=== PATIENT | female | born 2005 | race Caucasian/White ===

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

== ENCOUNTER 2024-09-06 05:24 | Emergency (ER) | payer OTHER, SELFPAY ==
[2024-09-06 05:24] VITALS: BP 153/93; PULSE 98; RESP 16; TEMP 36.9; O2SAT 100; BMI 34.2
--- NOTE | 2024-09-06 05:53 | EX.ED.DYSGE1 ---
HPI History of Present Illness Chief Complaint: Abd Pain Narrative Narrative: Patient is a 19-year-old female with past medical history of recent diagnosis of diabetes on metformin who presents to the emergency department the chief complaint of menstrual cramps. Patient states that in the middle the night she woke up and noted that she started menstrual cycle was having significant pain she tried ibuprofen around midnight and then she tried Midol around 3 AM without any relief therefore she came here for further evaluation management. She states that she is unsure if this is related to her diabetes or not. Patient denies any possibility of [facility] Medical History Diabetes Home Medications ?Medication ?Instructions ?Recorded ?Last Taken ?Type metformin 500 mg tablet,extended 2,000 mg PO DAILY 09/06/24 Unknown History release 24 hr ondansetron 4 mg disintegrating 4 mg PO Q6H PRN nausea and 09/06/24 Unknown Rx tablet vomiting #20 tabs Allergy/AdvReac Type Severity Reaction Status Date / Time No Known Allergies Allergy Verified 09/06/24 05:25 Social History Smoking Status: Never smoker ROS ROS ED ROS Narrative Constitutional: Denies fevers, chills, headaches Abdomen: Complains of abdominal pain as noted above denies nausea vomit diarrhea : Denies any painful urination, hematuria, polyuria Neurological: Denies any numbness, wheeze, tingling Musculoskeletal: Denies back pain Skin: Denies rashes or lesions EXAM Physical Exam Narrative Exam Narrative: General: Patient lying in bed rest comfortably did not appear to be acute distress Head: Atraumatic, normocephalic Eyes: PERRL bilaterally, EOMI bilaterally, no conjunctival injection noted Neck: Soft, supple, trachea midline Cardiovascular: Regular rate and rhythm Abdomen: Soft, nondistended, mild tenderness to palpation over the suprapubic region in the right lower and left lower quadrants no rebound or guarding on exam Extremities: +5/5 strength noted in the bilateral upper and lower extremities Neurological: Patient follow commands that she was at [facility] the year is 2024 Skin: Warm, dry, intact no rashes or lesions noted Const Vital Signs: 09/06/24 05:24 Temperature 98.4 F Temperature Source Oral Pulse Rate 98 Respiratory Rate 16 Blood Pressure 153/93 H Blood Pressure Mean 113 Pulse Ox 100 Oxygen Delivery Method Room Air MDM MDM MDM Narrative Medical decision making narrative: Patient is a 19-year-old female who presents to the emergency department with a chief complaint of period cramps. On the differential diagnose includes but not limited to menstrual cycle, ruptured cyst, UTI, , ectopic . Once workup is obtained reviewed she will be reevaluated. Patient be given IV fluids and Toradol. On reevaluation the patient she is feeling much improved she would like to go home at this point time. Patient was advised to rotate Tylenol and ibuprofen [id number] for pain control. She was encouraged to use Zofran sent to her pharmacy as needed for nausea. She was encouraged to follow-up with her doctor and return with any other concerns. She is agreeable this plan as well as significant other bedside all question concerns answered she was discharged home in stable condition Lab Data Labs: Laboratory Results - last 24 hr 09/06/24 09/06/24 05:50 05:57 Urine Color Yellow Urine Clarity Clear Urine pH 6.5 Ur Specific [place] 1.010 Urine Protein 15 H Urine Glucose (UA) Normal Urine Ketones Negative Urine Occult Blood 250 H Urine Nitrite Negative Urine Bilirubin Negative Urine Urobilinogen Normal Ur Leukocyte Esterase Negative Urine RBC 0 SEEN Urine WBC 0 SEEN Ur Squamous Epith Cells 0-5 SEEN Urine Bacteria 0 SEEN Urine Mucus 0 SEEN Urine Test Negative POC Glucose 127 H Discharge Plan Triage Chief Complaint: Abd Pain ED Provider: Alfredo Early Dx/Rx/DC Orders Clinical Impression: Menstrual cramp Prescriptions: New ondansetron 4 mg tablet,disintegrating 4 mg PO Q6H PRN (Reason: nausea and vomiting) Qty: 20 0RF No Action metformin 500 mg tablet extended release 24 hr 2,000 mg PO DAILY Primary Care Provider: Jessy Logan NP Referrals: Jessy Logan NP, TECHNICAL MAINTENANCE TECHNICIAN-C [Primary Care Provider] - Activity Restrictions/Additional Instructions: Follow-up with your doctor in the outpatient setting. Return with worsening symptoms or any concerns. Your urine did not show evidence of infection your glucose was normal and your test was negative. Rotate Tylenol and ibuprofen [id number] when you do this you can take something every 3 hours. Max dose Tylenol is 4000 mg in 24 hours max dose of ibuprofen 3200 mg in 24 hours. Print Language: Faroese Disposition Disposition: Home, Self Care
[2024-09-06 05:58] LABS: Bacteria 0 SEEN /hpf (None Seen); Mucous, Urine 0 SEEN /hpf (<or=2+); Red Blood Cells-Urine 0 SEEN /hpf (0-5); White Blood Cells 0 SEEN /hpf (0-5)
[2024-09-06 06:06] LABS: Color, Urine Yellow (Yellow); Glucose, Dipstick Normal (Normal); Ketone-Dipstick Negative (Negative); Leukocyte Esterase-Dipstick Negative /ul (Negative); Nitrite-Dipstick Negative (Negative); Occult Blood-Urine 250 /ul (Negative); Protein-Dipstick 15 mg/dl (Negative); Urine Bilirubin Dipstick Negative (Negative); Urine Clarity Clear (Clear); Urine Urobilinogen Normal (Normal); Urine pH 6.5 (5.0 - 8.0)
[2024-09-06] MEDS: Ketorolac 15 MG/ML Vial IV (06:06)
[2024-09-06] MEDS: 0.9% Normal Saline (1000mL) 1,000 ML 999 ML IV (06:07)
[2024-09-06 06:16] LABS: Bedside Glucose 127 mg/dL (74-106)
[2024-09-06 06:17] LABS: Squamous Epithelial Cells - UA 0-5 SEEN /hpf (5-10)
[2024-09-06 06:18] LABS: Internal QC Validated? YES +Cl - CLEAR BKGD; Pregnancy, Urine Negative Negative
--- OUTSIDE RECORDS SUMMARY | 2024-09-06 06:30 | XMS RPT_ITS | CCD ---
Author Organization [facility] Care Team Providers Care Patient Portal Representative Name Role Phone José Farnsworth Admitting Unavailable José Farnsworth Attending Unavailable Aurelia Ventura Primary Care Unavailable Aurelia Ventura Unavailable Gisel Ruiz Unavailable UnavailSophia DAVIS, RYAN Carrasco Attending Provider Gsiel Ruiz Attending Unavailmonica Ventura, Mrs. Aurelia Duran Primary Care Unavail able Vinny Sanchez Attending Unavailable Audrey, Mrs. Aurelia Duran Primary Care Unavail able TATIANA MACDEO Attending Unavailable BARBARA ÁLVAREZ Primary Care Unavailable REFERRED, SELF Referring Unavailable Unavailable Primary Care Provider Juan ARIAS MD, DR RENNER Attending Unavailmonica e TABITHA HERPETOLOGIST-REGULATORY ASSISTANT, JESSY Bowling Attending Unavai lable TABITHA HERPETOLOGIST-REGULATORY ASSISTANT, JESSY Bowling Primary Care Yuriy Logan TELESALES REPRESENTATIVE, Jessy Bowling Primary Care Provider YUKI SHRESTHA Attending Unavailable JESSY LOGAN Primary Care Unavailable LOGAN HERPETOLOGIST-REGULATORY ASSISTANT, JESSY Bowling Attending Unavai lable LOGAN HERPETOLOGIST-REGULATORY ASSISTANT, JESSY L Primary Care Unavai lable LOGAN HERPETOLOGIST-REGULATORY ASSISTANT, JESSY L Attending Unavai lable LOGAN HERPETOLOGIST-REGULATORY ASSISTANT, JESSY Bowling Primary Care Unavai lable LOGAN HERPETOLOGIST-REGULATORY ASSISTANT, JESSY Bowling Primary Care Unavai lable LOGAN HERPETOLOGIST-REGULATORY ASSISTANT, JESSY Bowling Attending Unavai lable LOGAN HERPETOLOGIST-REGULATORY ASSISTANT, JESSY Bowling Attending Unavai lable LOGAN HERPETOLOGIST-REGULATORY ASSISTANT, JESSY Bowling Primary Care Unavai lable LOGAN HERPETOLOGIST-REGULATORY ASSISTANT, JESSY Bowling Primary Care Unavai lable LOGAN HERPETOLOGIST-REGULATORY ASSISTANT, JESSY L Attending JESSY Hameed Primary Care JESSY Hameed Attending Jessy Reese Primary Care Unavailable Alfredo Early Attending Unavailable Allergies Allergy Classification Reported Allergen(s) Allergy Type Date of Onset Reaction(s) Facility (1 source) Bee/Wasp/Ant venom; Translations: [Bee Stings] Propensity to adverse reactions (disorder) [facility] Repository (1 source) No Known Medication Allergies; Translations: [No Known Medication Allergies] Propensity to adverse reactions to drug (disorder) [facility] Repository (1 source) bee venom; Translations: [BEE VENOM] Propensity to adverse reactions to drug (disorder) 4 [facility] Repository (4 sources) Bee Sting; Translations: [BEE STING] Allergy to substance 4 Anaphylaxis [facility] Medications Current Medications Medication Drug Class(es) Dates Sig (Normalized) Sig (Original) [id number] 0.3 ml EPINEPHrine 1 mg/ml auto-injector (2 sources) alpha-Adrenergic Agonist, beta-Adrenergic Agonist, Catecholamine Start: 04-30-2022 EPINEPHrine (EPIPEN) 0.3 mg/0.3 mL auto-injector Inject 0.3 mg intramuscularly. 04/30/2022 Active ketorolac tromethamine 10 mg oral tablet (1 source) Nonsteroidal Anti-inflammatory Drug, Cyclooxygenase Inhibitor Start: 08-05-2023 End: 08-08-2023 ketorolac 10 mg oral tablet Dose : 10 mg = 1 tab(s), Oral, QID, PRN as needed for pain, not to exceed 40 mg/day and 5 days duration for all dose forms, X 3 day(s), # 12 tab(s), 0 Refill(s), 08/08/23 5:14:00 AM EDT Start Date: 08/05/23 Stop Date: 08/08/23 Status: Ordered nitrofurantoin, macrocrystals 25 mg / nitrofurantoin, monohydrate 75 mg oral capsule (1 source) Nitrofuran Antibacterial Start: 09-14-2021 take 1 capsule by mouth every twelve hours at mealtime Nitrofurantoin Monohyd/M-Cryst Active 1 CAP PO Q12H 14 7 September 14, 2021 12:00am administer with a meal/food; swallow whole; do not open, crush, dissolve , or chew Completed/Discontinued Medications Medication Drug Class(es) Dates Sig (Normalized) Sig (Original) NEGATED: Highlighted row has not occurred!No Current Medications (1 source) No Current Medic ations Problems Active Problems Problem Classification Problem Date Documented Date Episodic/Chronic Abdominal pain (2 sources) Abdominal pain; Translations: [Unspecified abdominal pain] Onset: 08-05-2023 Episodic Diabetes mellitus without complication (2 sources) Type 2 diabetes mellitus without complications; Translations: [Type 2 diabetes mellitus without complications] Onset: 08-06-2024 Chronic Genitourinary symptoms and ill-defined conditions (5 sources) Dysuria; Translations: [Other symptoms and signs involving the genitourinary system] Onset: 03-07-2022 06-01-2024 Episodic Headache; including migraine (2 sources) Headache; Translations: [Headache] 05-02-2021 Episodic Headache; including migraine (4 sources) Headache; including migraine; Translations: [Headache, unspecified] Onset: 05-02-2021 05-02-2021 Comment on above: HIT BACK OF HEAD ON A TABLE FRIDAY, HEADACHE FOR 3 DAYS Other injuries and conditions due to external causes (2 sources) Closed injury of head; Translations: [Head injury, unspecified] 05-02-2021 Episodic Other nutritional; endocrine; and metabolic disorders (1 source) Abnormal weight gain; Translations: [Abnormal weight gain] Onset: 08-06-2024 Episodic Urinary tract infections (1 source) Urinary tract infection, site not specified; Translations: [Urinary tract infection, site not specified] Onset: 03-07-2022 Episodic Past or Other Problems Problem Classification Problem Date Documented Da te Episodic/Chronic Contraceptive and procreative management (2 sources) Social and personal history finding; Translations: [Encounter for procreative management, unspecified] Onset: 06-12-2023 06-12-2023 Episodic E Codes: Struck by; against (1 source) Striking against or struck by other objects, initial encounter; Translations: [Striking against or struck by other objects, init encntr] Onset: 05-02-2021 Episodic Malaise and fatigue (1 source) Other fatigue; Translations: [Other fatigue] Onset: 05-02-2021 Episodic Other injuries and conditions due to external causes (2 sources) Unspecified injury of head, initial encounter; Translations: [Unspecified injury of head, initial encounter] Onset: 05-02-2021 Episodic Other screening for suspected conditions (not mental disorders or infectious disease) (1 source) Abnormal findings on diagnostic imaging of skull and head, not elsewhere classified; Translations: [Abnormal findings on dx imaging of skull and head, NEC] Onset: 05-02-2021 Episodic Results Test Name Value Interpretation Reference Range Facility [id number] 06-28-2024 SUSANA-65 1076.1 units/ml High 0.0-5.0 [facility] Comment on above: Order Comment: +/- 2 8 days from order time Result Comment: Perf ormed At: [facility] [address] [id number] Tyler William MD Ph:[phone] Performed By: #### A DIFF, CBC, [id number], TSH, ANEU, CMP, LIPID, GFR #### [address] [address] #### CPEP #### [address] [address] .Auto Diffon 06-23-2024 Basophil, Absolute 0.0 10 3/mcL Normal 0.0-0.2 [facility] Comment on above: Performed By: #### A DIFF, CBC, 964068, TSH, ANEU, CMP, LIPID, GFR #### [address] [address] #### CPEP #### [address] [address] Basophils/100 WBC (Bld) 0.3 % Normal 0.0-2.5 [facility] Comment on above: Performed By: #### A DIFF, CBC, 549930, TSH, ANEU, CMP, LIPID, GFR #### [address] [address] #### CPEP #### [address] [address] Eosinophil, Absolute 0.1 10 3/mcL Normal 0.0-0.7 [facility] Comment on above: Performed By: #### A DIFF, CBC, 944945, TSH, ANEU, CMP, LIPID, GFR #### [place] [address] #### CPEP #### [address] [address] Eosinophils/100 WBC (Bld) 0.8 % Normal 0.0-7.0 [facility] Comment on above: Performed By: #### A DIFF, CBC, 288924, TSH, ANEU, CMP, LIPID, GFR #### [place] [address] #### CPEP #### [address] [address] Lymphocyte, Absolute 2.4 10 3/mcL Normal 0.9-4.3 [facility] Comment on above: Performed By: #### A DIFF, CBC, 313338, TSH, ANEU, CMP, LIPID, GFR #### [place] [address] #### CPEP #### [address] [address] Lymphocytes/100 WBC (Bld) 33.6 % Normal 20.0-40.0 [facility] Comment on above: Performed By: #### A DIFF, CBC, 464928, TSH, ANEU, CMP, LIPID, GFR #### [place] [address] #### CPEP #### [address] [address] Monocyte, Absolute 0.3 10 3/mcL Normal 0.1-1.4 [facility] Comment on above: Performed By: #### A DIFF, CBC, 900489, TSH, ANEU, CMP, LIPID, GFR #### [place] [address] #### CPEP #### [address] [address] Monocytes/100 WBC (Bld) 4.8 % Normal 2.0-13.0 [facility] Comment on above: Performed By: #### A DIFF, CBC, 209914, TSH, ANEU, CMP, LIPID, GFR #### [address] [address] #### CPEP #### [address] [address] Neutrophils/100 WBC (Bld) 60.5 % Normal 50.0-75.0 [facility] Comment on above: Performed By: #### A DIFF, CBC, 844525, TSH, ANEU, CMP, LIPID, GFR #### [address] [address] #### CPEP #### [address] [address] .GFRon 06-23-2024 GFR/1.73 sq M.predicted among non-blacks MDRD (S/P/Bld) [Vol rate/Area] mL/min/{1.73_m2} Normal [facility] Comment on above: Result Comment: Stages of Chronic Kidney Disease (CKD) Stage Description eGFR(ml/min/1.73 sq.m.) CKD 1 Normal kidney function or >=90 normal kindney function with possible kidney damage (ex. Proteinuria) CKD 2 Kidney damage with mild loss 60-89 of kidney function CKD 3a Mild to moderate loss of kidney 45-59 function CKD 3b Moderate to severe loss of 30-44 of kindey function CKD 4 Severe loss of kidney function 15-29 CKD 5 Kidney failure <15 Note: (go live 2024) the eGFR calculation was updated to the 2020 CKD-EPI creatinine equation without a race factor to calculate the eGFR results. Performed By: #### A DIFF, CBC, 145848, TSH, ANEU, CMP, LIPID, GFR #### [address] [address] #### CPEP #### [address] [address] .NEUABSon 06-23-2024 Neutrophil, Absolute 4.4 10 3/mcL Normal 2.3-8.1 [facility] Comment on above: Performed By: #### A DIFF, CBC, 929177, TSH, ANEU, CMP, LIPID, GFR #### [address] [address] #### CPEP #### [address] [address] CBCon 06-23-2024 Erythrocyte distribution width (RBC) [Ratio] 13.0 % Normal 11.5-15.5 [facility] Comment on above: Performed By: #### A DIFF, CBC, 271770, TSH, ANEU, CMP, LIPID, GFR #### [place] [address] #### CPEP #### [place] [address] Hematocrit (Bld) [Volume fraction] 42.0 % Normal 34.0-46.0 [facility] Comment on above: Performed By: #### A DIFF, CBC, 378935, TSH, ANEU, CMP, LIPID, GFR #### [place] [address] #### CPEP #### [place] [address] Hgb 14.3 G/dL Normal 12.0-16.0 [facility] Comment on above: Performed By: #### A DIFF, CBC, 981013, TSH, ANEU, CMP, LIPID, GFR #### [place] [address] #### CPEP #### [place] [address] MCH (RBC) [Entitic mass] 27.6 pg Normal 27.0-33.0 [facility] Comment on above: Performed By: #### A DIFF, CBC, 362528, TSH, ANEU, CMP, LIPID, GFR #### [place] [address] #### CPEP #### [place] [address] MCHC 34.1 G/dL Normal 32.0-36.0 [facility] Comment on above: Performed By: #### A DIFF, CBC, 298782, TSH, ANEU, CMP, LIPID, GFR #### [place] [address] #### CPEP #### [place] [address] MCV (RBC) [Entitic vol] 81.0 fL Normal 80.0-99.0 [facility] Comment on above: Performed By: #### A DIFF, CBC, 855664, TSH, ANEU, CMP, LIPID, GFR #### [place] [address] #### CPEP #### [place] [address] Platelet 371 10 3/mcL Normal 150-450 [facility] Comment on above: Performed By: #### A DIFF, CBC, 075102, TSH, ANEU, CMP, LIPID, GFR #### [place] [address] #### CPEP #### [place] [address] Platelet mean volume (Bld) [Entitic vol] 8.2 fL Normal 6.6-10.5 [facility] Comment on above: Performed By: #### A DIFF, CBC, 771196, TSH, ANEU, CMP, LIPID, GFR #### [place] [address] #### CPEP #### [place] [address] RBC 5.19 10 6/mcL Normal 4.10-5.30 [facility] Comment on above: Performed By: #### A DIFF, CBC, 565101, TSH, ANEU, CMP, LIPID, GFR #### [place] [address] #### CPEP #### [place] [address] WBC 7.2 10 3/mcL Normal 4.5-10.8 [facility] Comment on above: Performed By: #### A DIFF, CBC, 634003, TSH, ANEU, CMP, LIPID, GFR #### [address] [address] #### CPEP #### [address] [address] CMPon 06-23-2024 Albumin Level 4.4 G/dL Normal 3.5-5.0 [facility] Comment on above: Performed By: #### A DIFF, CBC, 437300, TSH, ANEU, CMP, LIPID, GFR #### [place] [address] #### CPEP #### [place] [address] Albumin/Globulin [Mass ratio] 1.2 {ratio} Normal 1.1-2.5 [facility] Comment on above: Performed By: #### A DIFF, CBC, 553903, TSH, ANEU, CMP, LIPID, GFR #### [place] [address] #### CPEP #### [place] [address] ALP [Catalytic activity/Vol] 126 U/L Normal 40-135 [facility] Comment on above: Performed By: #### A DIFF, CBC, 359021, TSH, ANEU, CMP, LIPID, GFR #### [address] [address] #### CPEP #### [place] [address] ALT [Catalytic activity/Vol] 21 U/L Normal 14-59 [facility] Comment on above: Performed By: #### A DIFF, CBC, 026151, TSH, ANEU, CMP, LIPID, GFR #### [place] [address] #### CPEP #### [place] [id number] AST [Catalytic activity/Vol] 14 U/L Normal 10-40 [facility] Comment on above: Performed By: #### A DIFF, CBC, 455408, TSH, ANEU, CMP, LIPID, GFR #### [address] [address] #### CPEP #### [address] [address] Bili Total 0.3 mg/dL Normal 0.2-1.0 [facility] Comment on above: Result Comment: Use of this assay is not recommended for patients undergoing treatment with eltrombopag due to the potential for falsely elevated results. Performed By: #### A DIFF, CBC, 997170, TSH, ANEU, CMP, LIPID, GFR #### [address] [address] #### CPEP #### [address] [address] BUN/Creatinine Ratio 15 ratio Normal 7-27 [facility] Comment on above: Performed By: #### A DIFF, CBC, 899796, TSH, ANEU, CMP, LIPID, GFR #### [place] [address] #### CPEP #### [address] [address] Calcium [Mass/Vol] 9.6 mg/dL Normal 8.4-10.2 [facility] Comment on above: Performed By: #### A DIFF, CBC, 015653, TSH, ANEU, CMP, LIPID, GFR #### [address] [address] #### CPEP #### [address] [address] Chloride [Moles/Vol] 99 mmol/L Normal 98-107 [facility] Comment on above: Performed By: #### A DIFF, CBC, 309132, TSH, ANEU, CMP, LIPID, GFR #### [address] [address] #### CPEP #### [address] [address] CO2 [Moles/Vol] 29 mmol/L Normal 22-29 [facility] Comment on above: Performed By: #### A DIFF, CBC, 629332, TSH, ANEU, CMP, LIPID, GFR #### [address] [address] #### CPEP #### [address] [address] Creatinine [Mass/Vol] 0.73 mg/dL Normal 0.55-1.02 [facility] Comment on above: Result Comment: Test ing performed on Siemens Dimension EXL analyzer using a modified kinetic Mustapha technique. Performed By: #### A DIFF, CBC, 536908, TSH, ANEU, CMP, LIPID, GFR #### [address] [address] #### CPEP #### [address] [address] Electrolyte Balance 9.0 mEq/L Normal 4.0-15.0 [facility] Comment on above: Performed By: #### A DIFF, CBC, 872981, TSH, ANEU, CMP, LIPID, GFR #### [place] [address] #### CPEP #### [address] [address] Globulin 3.6 G/dL Normal 1.5-3.8 [facility] Comment on above: Performed By: #### A DIFF, CBC, 046931, TSH, ANEU, CMP, LIPID, GFR #### [address] [address] #### CPEP #### [address] [address] Glucose [Mass/Vol] 152 mg/dL High 70-105 [facility] Comment on above: Performed By: #### A DIFF, CBC, 659070, TSH, ANEU, CMP, LIPID, GFR #### [place] [address] #### CPEP #### [address] [address] Potassium [Moles/Vol] 4.0 mmol/L Normal 3.5-5.1 [facility] Comment on above: Performed By: #### A DIFF, CBC, 864558, TSH, ANEU, CMP, LIPID, GFR #### [address] [address] #### CPEP #### [address] [address] Sodium [Moles/Vol] 137 mmol/L Normal 136-145 [facility] Comment on above: Performed By: #### A DIFF, CBC, 133184, TSH, ANEU, CMP, LIPID, GFR #### [place] [address] #### CPEP #### [place] [address] Total Protein 8.0 G/dL Normal 6.4-8.2 [facility] Comment on above: Performed By: #### A DIFF, CBC, 085931, TSH, ANEU, CMP, LIPID, GFR #### [place] [address] #### CPEP #### [place] [address] Urea nitrogen [Mass/Vol] 11 mg/dL Normal 7-18 [facility] Comment on above: Performed By: #### A DIFF, CBC, 687649, TSH, ANEU, CMP, LIPID, GFR #### [address] [address] #### CPEP #### [address] [address] CPEPon 06-23-2024 C-Peptide 2.32 ng/mL Normal 0.81-3.85 [facility] Comment on above: Order Comment: +/- 2 8 days from order time Performed By: #### A DIFF, CBC, 765236, TSH, ANEU, CMP, LIPID, GFR #### [place] [address] #### CPEP #### [address] [address] LIPIDon 06-23-2024 Cholesterol [Mass/Vol] 156 mg/dL Normal 0-200 [facility] Comment on above: Result Comment: Chol esterol Reference Interval: Less than 200 Desirable 200-239 Borderline high risk 240 and above High risk Performed By: #### A DIFF, CBC, 801899, TSH, ANEU, CMP, LIPID, GFR #### [address] [address] #### CPEP #### [address] [address] Cholesterol in HDL [Mass/Vol] 56 mg/dL Normal 40-60 [facility] Comment on above: Performed By: #### A DIFF, CBC, 157744, TSH, ANEU, CMP, LIPID, GFR #### [place] [address] #### CPEP #### [address] [address] Cholesterol in LDL [Mass/Vol] 90 mg/dL Normal 0-130 [facility] Comment on above: Performed By: #### A DIFF, CBC, 711929, TSH, ANEU, CMP, LIPID, GFR #### [place] [address] #### CPEP #### [address] [address] Triglyceride [Mass/Vol] 49 mg/dL Normal 0-150 [facility] Comment on above: Result Comment: Trig lyceride Reference Interval: Less than 150 Normal 150-199 Borderline high risk 200-499 High risk 500 or higher Very high risk Performed By: #### A DIFF, CBC, 059267, TSH, ANEU, CMP, LIPID, GFR #### [place] [address] #### CPEP #### [address] [address] TSHon 06-23-2024 TSH Qn 1.49 m[IU]/L Normal 0.36-3.74 [facility] Comment on above: Performed By: #### A DIFF, CBC, 510633, TSH, ANEU, CMP, LIPID, GFR #### [place] [address] #### CPEP #### [facility] [address] [place] [address] Bacteria Ur Culton Bacteria identified Cx Nom (U) CULTURE, URINE: No growth (<1,000 CFU/ml) Normal [facility] Comment on above: Performed By: #### 6 30-4 #### [facility] CLIA [id number] [address] [place] [address] [place] CNOVon 06-01-2024 CNOV Office Visit (UCWSTR ) KRISS MEDEROS ([id number]) 1 F Date Time Provider Department 06/01/24 4:45 PM APRIL [facility]LEG[facility] During your visit today, we recorded the following information about you: Temperature Pulse Respiration Blood pressure 98.5 degrees 100/minute 16/minute 122/72 Weight 89 kg April Villegas APRN.REGULATORY ASSISTANT 06/01/2024 5:49 PM Signed [facility] Subjective Kriss Mederos is a 18 year old female. HPI Pt is a 18 y/o female who presents with dysuria, increased frequency, pelvic pain and back pain x 5 days. No reports of abnormal color or odor to urine. No reports of fever, body aches or chills. Pt reports that she is taking phentermine and stopped taking over the last few days due to potential side effect of medication. LMP: 3 weeks ago per patient. No reports of vaginal symptoms. Pt has not taken any otc medications at this time. Review of Systems Constitutional: Negative for chills and fever. Respiratory: Negative. Cardiovascular: Negative. Genitourinary: Positive for dysuria and frequency. Negative for difficulty urinating, hematuria and menstrual problem. Musculoskeletal: Positive for back pain. Objective BP 122/72 Pulse 100 Temp 36.9 ?C (98.5 ?F) Resp 16 Wt 89 kg (196 lb 3.4 oz) LMP 05/22/2023 (Exact Date) SpO2 96% BMI 35.89 kg/m? No past medical history on file. No past surgical history on file. ALLERGIES Bee Sting MEDICATIONS EPINEPHrine (EPIPEN) 0.3 mg/0.3 mL auto-injector Inject 0.3 mg intramuscularly. No family history on file. Social History Tobacco Use Smoking status: Never Smokeless tobacco: Never Substance Use Topics Alcohol use: Never Drug use: Never Physical Exam Constitutional: General: She is awake. Cardiovascular: Rate and Rhythm: Normal rate and regular rhythm. Pulmonary: Effort: Pulmonary effort is normal. Breath sounds: Normal breath sounds. Abdominal: Tenderness: There is abdominal tenderness in the suprapubic area. There is no right CVA tenderness or left CVA tenderness. Neurological: Mental Status: She is alert. Assessment and Plan Differential Diagnoses - dysuria is more likely for the following reason(s): suggested by HANDP - pelvic pain is more likely for the following reason(s): suggested by HANDP - pyelonephritis is less likely for the following reason(s): HANDP not suggestive Disposition The patient was discharged. Procedures ASSESSMENT/PLAN: 1. Dysuria - ICD9: 788.1, ICD10: R30.0 (primary diagnosis) acute - Send urine for culture - Patient education for prevention given - BACTERIAL CULTURE, URINE - URINALYSIS, WITH MICROSCOPIC - UA Dip unremarkable for signs of infection - will send urine out for Urinalysis and UAC. - will reach out to patient regarding results and will prescribe antibiotic treatment if warranted based on culture results. 2. Pelvic pain - ICD9: [id number], ICD10: R10.2 - UA Dip unremarkable for signs of infection - will send urine out for Urinalysis and UAC. - UA DIP, URINE (POC) - BACTERIAL CULTURE, URINE - URINALYSIS, WITH MICROSCOPIC - will reach out to patient regarding results and will prescribe antibiotic treatment if warranted based on culture results. Chayo Mantilla TEACHING PROVIDER (Physician/PA/HERPETOLOGIST) NOTE OF PERSONAL INVOLVEMENT IN CARE: I have personally seen and examined the patient and performed the medical decision-making components. I have reviewed the Advanced Practice Registered Nurse (HERPETOLOGIST) Student's documentation and verified the findings in the note as written. Any additions or changes are noted in bold/italics. Signature: April Villegas Date: 06/01/2024 Time: 5:45 PM Chayo Mantilla 06/01/2024 5:10 PM Signed ASSESSMENT/PLAN: 1. Dysuria - ICD9: 788.1, ICD10: R30.0 (primary diagnosis) acute - Send urine for culture - Patient education for prevention given - BACTERIAL CULTURE, URINE - URINALYSIS, WITH MICROSCOPIC - UA Dip unremarkable for signs of infection - will send urine out for Urinalysis and UAC. - will reach out to patient regarding results and will prescribe antibiotic treatment if warranted based on culture results. 2. Pelvic pain - ICD9: [id number], ICD10: R10.2 - UA Dip unremarkable for signs of infection - will send urine out for Urinalysis and UAC. - UA DIP, URINE (POC) - BACTERIAL CULTURE, URINE - URINALYSIS, WITH MICROSCOPIC - will reach out to patient regarding results and will prescribe antibiotic treatment if warranted based on culture results. Allergies As of Date: 06/01/2024 Noted Allergy Reaction BEE STING 06/12/2023 10 - Anaphylaxis Date Reviewed: 06/01/2024 Reviewed by: Batool Collins MA - Fully Assessed Reason for Visit: Pelvic Pain [282] Cmt: low back pain x 5 days Primary Visit Diagnosis:Dysuria [R30.0] Other Visit Diagnosis:Pelvic pain [R10.2] Order (more content not included)... Normal [facility] UA DIP, URINE (POC)on 2024 BILIRUBIN UA (POCT) Negative Negative [facility] CLARITY UA (POCT) Clear [facility] COLOR UA (POCT) Yellow [facility] GLUCOSE UA (POCT) 250 mg/dL Abnormal Negative [facility] Hemoglobin Ql (U) Trace-intact Abnormal Negative [facility] Interpretation and review of laboratory results Abnormal [facility] KETONE UA (POCT) Negative Negative mg/dL [facility] LEUKOCYTES UA (POCT) Negative Negative [facility] NITRITE UA (POCT) Negative Negative [facility] PH UA (POCT) 6 4.5 - 8.0 [facility] Protein Ql (U) Negative Negative mg/dL [facility] SPECIFIC GRAVITY UA (POCT) 1.01 1.005 - 1.030 [facility] UROBILINOGEN UA (POCT) 0.2 Normal E.U./dL [facility] Location:[facility], [address] [place] [address], [place], [place], [id number] [place] [address] POINT OF CARE [facility] Urinalysis complete panel (U )on 06-01-2024 Bacteria LM.HPF (Urine sed) [#/Area] Negative Normal Negative [facility] Comment on above: Order Comment: Speci men Type: URINE SPECIMEN Ordering Facility: [facility] Address: [address] [place] [address] Performed By: #### 2 4356-8 #### [facility] CLIA [id number] [address] [place] [address] [place] Bilirubin Ql (U) Negative Normal Negative [facility] Comment on above: Order Comment: Speci men Type: URINE SPECIMEN Ordering Facility: [facility] Address: [address] [place] [address] Performed By: #### 2 4356-8 #### [facility] CLIA [id number] [address] [place] [address] [place] Clarity (Unsp spec) Clear Normal Clear [facility] Comment on above: Order Comment: Speci men Type: URINE SPECIMEN Ordering Facility: [facility] Address: [address] [place] [address] Performed By: #### 2 4356-8 #### [facility] CLIA [id number] [address] [place] [address] [place] Color (U) Yellow Normal Yellow [facility] Comment on above: Order Comment: Speci men Type: URINE SPECIMEN Ordering Facility: [facility] Address: [address] [place] [address] Performed By: #### 2 4356-8 #### [facility] CLIA [id number] [address] [place] [address] [place] Epithelial cells LM.HPF (Urine sed) [#/Area] None Seen Normal [facility] Comment on above: Order Comment: Speci men Type: URINE SPECIMEN Ordering Facility: [facility] Address: [address] [place] [address] Performed By: #### 2 4356-8 #### [facility] CLIA [id number] [address] [place] [address] [place] Glucose Test strip (U) [Mass/Vol] 1+ Abnormal Negative [facility] Comment on above: Order Comment: Speci men Type: URINE SPECIMEN Ordering Facility: [facility] Address: [address] [place] [address] Performed By: #### 2 4356-8 #### [facility] CLIA [id number] [address] [place] [address] [place] Hemoglobin Ql (U) Negative Normal Negative [facility] Comment on above: Order Comment: Speci men Type: URINE SPECIMEN Ordering Facility: [facility] Address: [address] [place] [address] Performed By: #### 2 4356-8 #### [facility] CLIA [id number] [address] [place] [address] [place] Hyaline casts (Urine sed) [#/Area] 0 /[LPF] Normal 0 /LPF [facility] Comment on above: Order Comment: Speci men Type: URINE SPECIMEN Ordering Facility: [facility] Address: [address] [place] [address] Performed By: #### 2 4356-8 #### [facility] CLIA [id number] [address] [place], [place] [id number] [place] Ketones Ql (U) Negative Normal Negative [facility] Comment on above: Order Comment: Speci men Type: URINE SPECIMEN Ordering Facility: [facility] Address: [address] [place] [address] Performed By: #### 2 4356-8 #### [facility] CLIA [id number] [address] [id number] [address] [place] Leukocyte esterase Test strip Ql (U) Negative Normal Negative [facility] Comment on above: Order Comment: Speci men Type: URINE SPECIMEN Ordering Facility: [facility] Address: [address] [place] [address] Performed By: #### 2 4356-8 #### [facility] CLIA [id number] [address] [place] [address] [place] Nitrite Ql (U) Negative Normal Negative [facility] Comment on above: Order Comment: Speci men Type: URINE SPECIMEN Ordering Facility: [facility] Address: [address] [place] [address] Performed By: #### 2 4356-8 #### [facility] CLIA [id number] [address] [place] [address] [place] pH (U) 6.5 [pH] Normal <8.5 [facility] Comment on above: Order Comment: Speci men Type: URINE SPECIMEN Ordering Facility: [facility] Address: [address] [place] [address] Performed By: #### 2 4356-8 #### [facility] CLIA [id number] [address] [place] [address] [place] Protein (U) [Mass/Vol] Negative Normal Negative [facility] Comment on above: Order Comment: Speci men Type: URINE SPECIMEN Ordering Facility: [facility] Address: [address] [place] [address] Performed By: #### 2 4356-8 #### [facility] CLIA [id number] [address] [place] [address] [place] RBC LM.HPF (Urine sed) [#/Area] 0-2 /HPF Normal 0-2 /HPF [facility] Comment on above: Order Comment: Speci men Type: URINE SPECIMEN Ordering Facility: [facility] Address: [address] [place] [address] Performed By: #### 2 4356-8 #### [facility] CLIA [id number] [address] [place] [address] [place] Specific gravity (U) [Rel density] 1.008 Normal 1.005-1.030 [facility] Comment on above: Order Comment: Speci men Type: URINE SPECIMEN Ordering Facility: [facility] Address: [address] [place] [address] Performed By: #### 2 4356-8 #### [facility] CLIA [id number] [address] [place] [address] [place] Urobilinogen Ql (U) 0.2 EU/dL Normal 0.2-1.0 EU/dL [facility] Comment on above: Order Comment: Speci men Type: URINE SPECIMEN Ordering Facility: [facility] Address: [address] [place] [address] Performed By: #### 2 4356-8 #### [facility] CLIA [id number] [address] [place] [address] [place] WBC LM.HPF (Urine sed) [#/Area] 0-5 /HPF Normal 0-5 /HPF [facility] Comment on above: Order Comment: Speci men Type: URINE SPECIMEN Ordering Facility: [facility] Address: [address] [place] [address] Performed By: #### 2 4356-8 #### [facility] CLIA [id number] [address] [place] [address] [place] .Auto Diffon 09-18-2023 Basophil, Absolute 0.1 10 3/mcL Normal 0.0-0.2 [facility] ([place]) Comment on above: Performed By: #### C BC, ADIFF, ANEU, TSH, CMP, GFR #### [place] [address] [address] Basophils/100 WBC (Bld) 1.0 % Normal 0.0-2.5 [facility] ([place]) Comment on above: Performed By: #### C BC, ADIFF, ANEU, TSH, CMP, GFR #### [address] [address] Eosinophil, Absolute 0.1 10 3/mcL Normal 0.0-0.4 [facility] ([place]) Comment on above: Performed By: #### C BC, ADIFF, ANEU, TSH, CMP, GFR #### [address] [address] Eosinophils/100 WBC (Bld) 0.7 % Normal 0.0-7.0 [facility] ([place] Comment on above: Performed By: #### C BC, ADIFF, ANEU, TSH, CMP, GFR #### [address] [address] Lymphocyte, Absolute 2.2 10 3/mcL Normal 0.8-3.9 [facility] ([place]) Comment on above: Performed By: #### C BC, ADIFF, ANEU, TSH, CMP, GFR #### [address] [address] Lymphocytes/100 WBC (Bld) 28.7 % Normal 10.0-50.0 [facility] ([place] Comment on above: Performed By: #### C BC, ADIFF, ANEU, TSH, CMP, GFR #### [address] [address] Monocyte, Absolute 0.4 10 3/mcL Normal 0.2-1.0 [facility] ([place]) Comment on above: Performed By: #### C BC, ADIFF, ANEU, TSH, CMP, GFR #### [address] [address] Monocytes/100 WBC (Bld) 4.9 % Normal 1.7-13.0 [facility] ([place] Comment on above: Performed By: #### C BC, ADIFF, ANEU, TSH, CMP, GFR #### [address] [address] Neutrophils/100 WBC (Bld) 64.7 % Normal 37.0-80.0 [facility] ([place] Comment on above: Performed By: #### C BC, ADIFF, ANEU, TSH, CMP, GFR #### [address] [address] .GFRon 09-18-2023 GFR 146 ml/min/1.73sqm Normal [facility] ([place] Comment on above: Result Comment: GFR Population mean for , Non- Americans Ages 20-29 = 116 mL/min/1.73 sq.m. Ages 30-39 = 107 mL/min/1.73 sq.m. Ages 40-49 = 99 mL/min/1.73 sq.m. Ages 50-59 = 93 mL/min/1.73 sq.m. Ages 60-69 = 85 mL/min/1.73 sq.m. Ages 70+ = 75 mL/min/1.73 sq.m. Chronic Kidney Disease: Less than 60 mL/min/1.73 square meters End Stage Renal Disease: Less than 15 mL/min/1.73 square meters Performed By: #### C BC, ADIFF, ANEU, TSH, CMP, GFR #### [address] [address] GFR Non- 120 ml/min/1.73sqm Normal [facility] ([place] Comment on above: Result Comment: GFR Population mean for , Non- Americans Ages 20-29 = 116 mL/min/1.73 sq.m. Ages 30-39 = 107 mL/min/1.73 sq.m. Ages 40-49 = 99 mL/min/1.73 sq.m. Ages 50-59 = 93 mL/min/1.73 sq.m. Ages 60-69 = 85 mL/min/1.73 sq.m. Ages 70+ = 75 mL/min/1.73 sq.m. Chronic Kidney Disease: Less than 60 mL/min/1.73 square meters End Stage Renal Disease: Less than 15 mL/min/1.73 square meters Performed By: #### C BC, ADIFF, ANEU, TSH, CMP, GFR #### [address] [address] .NEUABSon 09-18-2023 Neutrophil, Absolute 4.9 10 3/mcL Normal 2.9-6.2 [facility] ([place]) Comment on above: Performed By: #### C BC, ADIFF, ANEU, TSH, CMP, GFR #### [place] [id number] CBCon 09-18-2023 Erythrocyte distribution width (RBC) [Ratio] 12.9 % Normal 11.5-14.5 [facility] ([place] Comment on above: Performed By: #### C BC, ADIFF, ANEU, TSH, CMP, GFR #### [place] [address] Hematocrit (Bld) [Volume fraction] 40.6 % Normal 37.0-47.0 [facility] ([place] Comment on above: Performed By: #### C BC, ADIFF, ANEU, TSH, CMP, GFR #### [place] [address] Hgb 13.9 G/dL Normal 12.0-16.0 [facility] ([place] Comment on above: Performed By: #### C BC, ADIFF, ANEU, TSH, CMP, GFR #### [place] [address] MCH (RBC) [Entitic mass] 28.6 pg Normal 27.0-31.2 [facility] ([place] Comment on above: Performed By: #### C BC, ADIFF, ANEU, TSH, CMP, GFR #### [place] [address] MCHC 34.2 G/dL Normal 33.0-37.0 [facility] ([place] Comment on above: Performed By: #### C BC, ADIFF, ANEU, TSH, CMP, GFR #### [place] [address] MCV (RBC) [Entitic vol] 83.5 fL Normal 80.0-94.0 [facility] ([place] Comment on above: Performed By: #### C BC, ADIFF, ANEU, TSH, CMP, GFR #### [address] [address] Platelet 315 10 3/mcL Normal 130-400 [facility] ([place] Comment on above: Performed By: #### C BC, ADIFF, ANEU, TSH, CMP, GFR #### [address] [address] Platelet mean volume (Bld) [Entitic vol] 8.1 fL Normal 7.4-10.4 [facility] ([place] Comment on above: Performed By: #### C BC, ADIFF, ANEU, TSH, CMP, GFR #### [address] [address] RBC 4.86 10 6/mcL Normal 4.20-5.40 [facility] ([place] Comment on above: Performed By: #### C BC, ADIFF, ANEU, TSH, CMP, GFR #### [address] [address] WBC 7.5 10 3/mcL Normal 4.6-10.8 [facility] ([place] Comment on above: Performed By: #### C BC, ADIFF, ANEU, TSH, CMP, GFR #### [address] [address] CMPon 09-18-2023 Albumin Level 4.5 G/dL Normal 3.5-5.0 [facility] ([place] Comment on above: Performed By: #### C BC, ADIFF, ANEU, TSH, CMP, GFR #### [address] [address] Albumin/Globulin [Mass ratio] 1.2 {ratio} Normal 1.1-2.5 [facility] ([place] Comment on above: Performed By: #### C BC, ADIFF, ANEU, TSH, CMP, GFR #### [address] [address] ALP [Catalytic activity/Vol] 113 U/L Normal 40-135 [facility] ([place] Comment on above: Performed By: #### C BC, ADIFF, ANEU, TSH, CMP, GFR #### [address] [address] ALT [Catalytic activity/Vol] 27 U/L Normal 14-59 [facility] ([place] Comment on above: Performed By: #### C BC, ADIFF, ANEU, TSH, CMP, GFR #### [address] [address] AST [Catalytic activity/Vol] 20 U/L Normal 10-40 [facility] ([place] Comment on above: Performed By: #### C BC, ADIFF, ANEU, TSH, CMP, GFR #### [address] [address] Bili Total 0.3 mg/dL Normal 0.2-1.0 [facility] ([place] Comment on above: Result Comment: Use of this assay is not recommended for patients undergoing treatment with eltrombopag due to the potential for falsely elevated results. Performed By: #### C BC, ADIFF, ANEU, TSH, CMP, GFR #### [address] [address] BUN/Creatinine Ratio 19 ratio Normal 7-27 [facility] ([place]) Comment on above: Performed By: #### C BC, ADIFF, ANEU, TSH, CMP, GFR #### [address] [address] Calcium [Mass/Vol] 9.4 mg/dL Normal 8.4-10.2 [facility] ([place]) Comment on above: Performed By: #### C BC, ADIFF, ANEU, TSH, CMP, GFR #### [address] [address] Chloride [Moles/Vol] 103 mmol/L Normal 98-107 [facility] ([place]) Comment on above: Performed By: #### C BC, ADIFF, ANEU, TSH, CMP, GFR #### [address] [address] CO2 [Moles/Vol] 27 mmol/L Normal 22-29 [facility] ([place] Comment on above: Performed By: #### C BC, ADIFF, ANEU, TSH, CMP, GFR #### [address] [address] Creatinine [Mass/Vol] 0.63 mg/dL Normal 0.55-1.02 [facility] ([place]) Comment on above: Performed By: #### C BC, ADIFF, ANEU, TSH, CMP, GFR #### [address] [address] Electrolyte Balance 10.0 mEq/L Normal 4.0-15.0 [facility] ([place]) Comment on above: Performed By: #### C BC, ADIFF, ANEU, TSH, CMP, GFR #### [address] [address] Globulin 3.7 G/dL Normal [facility] ([place] Comment on above: Performed By: #### C BC, ADIFF, ANEU, TSH, CMP, GFR #### [address] [address] Glucose [Mass/Vol] 105 mg/dL Normal 70-105 [facility] ([place]) Comment on above: Performed By: #### C BC, ADIFF, ANEU, TSH, CMP, GFR #### [address] [address] Potassium [Moles/Vol] 4.7 mmol/L Normal 3.5-5.1 [facility] ([place]) Comment on above: Performed By: #### C BC, ADIFF, ANEU, TSH, CMP, GFR #### [address] [address] Sodium [Moles/Vol] 140 mmol/L Normal 136-145 [facility] ([place]) Comment on above: Performed By: #### C BC, ADIFF, ANEU, TSH, CMP, GFR #### [address] [address] Total Protein 8.2 G/dL Normal 6.4-8.2 [facility] ([place] Comment on above: Performed By: #### C BC, ADIFF, ANEU, TSH, CMP, GFR #### [address] [address] Urea nitrogen [Mass/Vol] 12 mg/dL Normal 7-18 [facility] ([place] Comment on above: Performed By: #### C BC, ADIFF, ANEU, TSH, CMP, GFR #### [address] [address] TSHon 09-18-2023 TSH Qn 1.50 m[IU]/L Normal 0.36-3.74 [facility] ([place] Comment on above: Performed By: #### C BC, ADIFF, ANEU, TSH, CMP, GFR #### [address] [address] .Auto Diffon 08-05-2023 Basophil, Absolute 0.0 10 3/mcL Normal 0.0-0.2 [facility] ([place]) Comment on above: Performed By: #### C BC, ADIFF, ANEU, TSH, CMP, GFR #### [address] [address] Basophils/100 WBC (Bld) 0.3 % Normal 0.0-2.5 [facility] ([place] Comment on above: Performed By: #### C BC, ADIFF, ANEU, TSH, CMP, GFR #### [address] [address] Eosinophil, Absolute 0.1 10 3/mcL Normal 0.0-0.4 [facility] ([place]) Comment on above: Performed By: #### C BC, ADIFF, ANEU, TSH, CMP, GFR #### [address] [address] Eosinophils/100 WBC (Bld) 0.6 % Normal 0.0-7.0 [facility] ([place] Comment on above: Performed By: #### C BC, ADIFF, ANEU, TSH, CMP, GFR #### [address] [address] Lymphocyte, Absolute 3.5 10 3/mcL Normal 0.8-3.9 [facility] ([place] Comment on above: Performed By: #### C BC, ADIFF, ANEU, TSH, CMP, GFR #### [address] [address] Lymphocytes/100 WBC (Bld) 33.0 % Normal 10.0-50.0 [facility] ([place] Comment on above: Performed By: #### C BC, ADIFF, ANEU, TSH, CMP, GFR #### [address] [address] Monocyte, Absolute 0.6 10 3/mcL Normal 0.2-1.0 [facility] ([place]) Comment on above: Performed By: #### C BC, ADIFF, ANEU, TSH, CMP, GFR #### [address] [address] Monocytes/100 WBC (Bld) 5.2 % Normal 1.7-13.0 [facility] ([place] Comment on above: Performed By: #### C BC, ADIFF, ANEU, TSH, CMP, GFR #### [address] [address] Neutrophils/100 WBC (Bld) 60.9 % Normal 37.0-80.0 [facility] ([place] Comment on above: Performed By: #### C BC, ADIFF, ANEU, TSH, CMP, GFR #### [address] [address] .GFRon 08-05-2023 GFR 116 ml/min/1.73sqm Normal [facility] ([place] Comment on above: Result Comment: GFR Population mean for , Non- Americans Ages 20-29 = 116 mL/min/1.73 sq.m. Ages 30-39 = 107 mL/min/1.73 sq.m. Ages 40-49 = 99 mL/min/1.73 sq.m. Ages 50-59 = 93 mL/min/1.73 sq.m. Ages 60-69 = 85 mL/min/1.73 sq.m. Ages 70+ = 75 mL/min/1.73 sq.m. Chronic Kidney Disease: Less than 60 mL/min/1.73 square meters End Stage Renal Disease: Less than 15 mL/min/1.73 square meters Performed By: #### C BC, ADIFF, ANEU, TSH, CMP, GFR #### [address] [address] GFR Non- 96 ml/min/1.73sqm Normal [facility] ([place] Comment on above: Result Comment: GFR Population mean for , Non- Americans Ages 20-29 = 116 mL/min/1.73 sq.m. Ages 30-39 = 107 mL/min/1.73 sq.m. Ages 40-49 = 99 mL/min/1.73 sq.m. Ages 50-59 = 93 mL/min/1.73 sq.m. Ages 60-69 = 85 mL/min/1.73 sq.m. Ages 70+ = 75 mL/min/1.73 sq.m. Chronic Kidney Disease: Less than 60 mL/min/1.73 square meters End Stage Renal Disease: Less than 15 mL/min/1.73 square meters Performed By: #### C BC, ADIFF, ANEU, TSH, CMP, GFR #### [place] [id number] .MDWon 08-05-2023 Monocyte Distribution Width 17.33 Normal 0.00-20.00 [facility] ([place] Comment on above: Result Comment: For ED adult patients suspected of sepsis, MDW<=20.0 does not rule out sepsis or risk of sepsis Performed By: #### C BC, ADIFF, ANEU, TSH, CMP, GFR #### [place] [id number] .NEUABSon 08-05-2023 Neutrophil, Absolute 6.5 10 3/mcL High 2.9-6.2 [facility] ([place]) Comment on above: Performed By: #### C BC, ADIFF, ANEU, TSH, CMP, GFR #### [place] [phone] BMPon 08-05-2023 BUN/Creatinine Ratio 17 ratio Normal 7-27 [facility] ([place]) Comment on above: Performed By: #### C BC, ADIFF, ANEU, TSH, CMP, GFR #### [place] [address] [place], [place] [address] Creatinine [Mass/Vol] 0.77 mg/dL Normal 0.55-1.02 [facility] ([place]) Comment on above: Performed By: #### C BC, ADIFF, ANEU, TSH, CMP, GFR #### [address] [address] Calcium [Mass/Vol] 8.7 mg/dL Normal 8.4-10.2 [facility] ([place]) Comment on above: Performed By: #### C BC, ADIFF, ANEU, TSH, CMP, GFR #### [address] [address] Chloride [Moles/Vol] 102 mmol/L Normal 98-107 [facility] ([place]) Comment on above: Performed By: #### C BC, ADIFF, ANEU, TSH, CMP, GFR #### [address] [address] CO2 [Moles/Vol] 21 mmol/L Low 22-29 [facility] ([place] Comment on above: Performed By: #### C BC, ADIFF, ANEU, TSH, CMP, GFR #### [address] [address] Electrolyte Balance 16.0 mEq/L High 4.0-15.0 [facility] ([place]) Comment on above: Performed By: #### C BC, ADIFF, ANEU, TSH, CMP, GFR #### [address] [address] Glucose [Mass/Vol] 102 mg/dL Normal 70-105 [facility] ([place] Comment on above: Performed By: #### C BC, ADIFF, ANEU, TSH, CMP, GFR #### [address] [address] Potassium [Moles/Vol] 3.8 mmol/L Normal 3.5-5.1 [facility] ([place]) Comment on above: Performed By: #### C BC, ADIFF, ANEU, TSH, CMP, GFR #### [address] [address] Sodium [Moles/Vol] 139 mmol/L Normal 136-145 [facility] ([place] Comment on above: Performed By: #### C BC, ADIFF, ANEU, TSH, CMP, GFR #### [address] [address] Urea nitrogen [Mass/Vol] 13 mg/dL Normal 7-18 [facility] ([place] Comment on above: Performed By: #### C BC, ADIFF, ANEU, TSH, CMP, GFR #### [place] [id number] CBCon 08-05-2023 Erythrocyte distribution width (RBC) [Ratio] 12.9 % Normal 11.5-14.5 [facility] ([place] Comment on above: Performed By: #### G FR, CBC, ADRAUL, CHASTITY MDW, BMP #### [place] [address] Hematocrit (Bld) [Volume fraction] 38.9 % Normal 37.0-47.0 [facility] ([place] Comment on above: Performed By: #### G FR, CBC, TRACI, MD CHASTITYW, BMP #### [place] [address] Hgb 13.8 G/dL Normal 12.0-16.0 [facility] ([place] Comment on above: Performed By: #### G FR, CBC, TRACI, MD CHASTITYW, BMP #### [place] [address] MCH (RBC) [Entitic mass] 29.3 pg Normal 27.0-31.2 [facility] ([place] Comment on above: Performed By: #### G FR, CBC, LESTERIFF, MD CHASTITYW, BMP #### [place] [address] MCHC 35.5 G/dL Normal 33.0-37.0 [facility] ([place] Comment on above: Performed By: #### G FR, CBC, ADIFF, ANEU, MDW, BMP #### [address] [address] MCV (RBC) [Entitic vol] 82.4 fL Normal 80.0-94.0 [facility] ([place] Comment on above: Performed By: #### G FR, CBC, ADRAUL, CHASTITY, MDW, BMP #### [place] [phone] [place], [place] [address] Platelet 338 10 3/mcL Normal 130-400 [facility] ([place] Comment on above: Performed By: #### G FR, CBC, ADIFF, ANEU, MDW, BMP #### [place] [address] [place], [place] [address] Platelet mean volume (Bld) [Entitic vol] 7.8 fL Normal 7.4-10.4 [facility] ([place] Comment on above: Performed By: #### G FR, CBC, ADRAUL, CHASTITY, MDW, BMP #### [address] [address] RBC 4.72 10 6/mcL Normal 4.20-5.40 [facility] ([place] Comment on above: Performed By: #### G FR, CBC, ADIFF, ANEU, MDW, BMP #### [address] [address] WBC 10.7 10 3/mcL Normal 4.6-10.8 [facility] ([place]) Comment on above: Performed By: #### G FR, CBC, ADIFF, ANEU, MDW, BMP #### [address] [address] [address] ABDOMEN/PELVIS W/O CONTRA STon 08-05-2023 CT ABDOMEN/PELVIS W/O CONTRAST ORIGINAL EXAMINATION: CT OF THE ABDOMEN AND PELVIS WITHOUT CONTRAST 08/05/2023 4:41 am TECHNIQUE: CT of the abdomen and pelvis was performed without the administration of intravenous contrast. Multiplanar reformatted images are provided for review. Automated exposure control, iterative reconstruction, and/or weight based adjustment of the mA/kV was utilized to reduce the radiation dose to as low as reasonably achievable. COMPARISON: None. HISTORY: ORDERING SYSTEM PROVIDED HISTORY: Reason for Exam: Left flank pain FINDINGS: The heart is normal in size. No pericardial thickening or effusion. The visualized lung bases are without acute abnormality. The aorta is nonaneurysmal with no atherosclerosis. There are a few prominent left para-aortic lymph nodes measuring up to 0.9 cm (series 2, image 51). More than expected normal size central mesentery lymph nodes are most likely reactive. The liver, gallbladder, spleen, pancreas, and bilateral adrenal glands are unremarkable. The kidneys are roughly symmetric in size. No hydronephrosis or renal calculi. The ureters and bladder are unremarkable. The uterus is unremarkable. There is a 5 cm simple right adnexal cyst. No pneumoperitoneum or free fluid. The large and small bowel are normal in caliber. The appendix is unremarkable. Few loops of small bowel within the left upper abdomen may have mild wall thickening. There are a few moderately distended air-filled loops of small intestine, predominantly in the left upper abdomen also. No acute osseous abnormality. IMPRESSION: Questionable small bowel wall thickening and adynamic ileus within the left upper abdomen could represent mild enteritis with reactive lymph nodes in the appropriate clinical setting. 5 cm right simple adnexal cyst. No dedicated follow-up required. I have personally reviewed the images of this examination, and agree with the resident's findings and interpretation. RECOMMENDATIONS: Right adnexal simple-appearing cyst measuring 5 cm. No follow-up imaging is recommended. Reference: JACR 2019;17(2):248-254 Interpreted by: Tony Oliva MD Preliminary Report By: Alfredo Bui Electronically signed By Tony Oliva MD Dictated Date: 08/05/2023 4:46:08 AM Prelim Date: 08/05/2023 4:55:24 AM Sign Date: 08/05/2023 5:04:02 AM Ordering Provider: JUD ARIAS [facility] ([place]) LABORATORYOrdered By: SYSTEM SYSTEM on 08-05-2023 Basophil, Absolute 0.0 103/mcL Normal 0.0 - 0.2 10^3/mcL AO Workflow SS Basophils/100 WBC (Bld) 0.3 % Normal 0.0 - 2.5 % AO Workflow SS Calcium [Mass/Vol] 8.7 mg/dL Normal 8.4 - 10. 2 mg/dL AO ADM SS Chloride [Moles/Vol] 102 mmol/L Normal 98 - 10 7 mmol/L AO ADM SS CO2 [Moles/Vol] 21 mmol/L Low 22 - 29 mmol/L AO ADM SS Creatinine [Mass/Vol] 0.77 mg/dL Normal 0.55 - 1.02 mg/dL AO ADM SS Electrolyte Balance 16.0 mEq/L High 4.0 - 15 .0 mEq/L AO ADM SS Eosinophil, Absolute 0.1 103/mcL Normal 0.0 - 0 .4 10^3/mcL AO Workflow SS Eosinophils/100 WBC (Bld) 0.6 % Normal 0.0 - 7.0 % AO Workflow SS Erythrocyte distribution width (RBC) [Ratio] 12.9 % Normal 11.5 - 14.5 % AO Workflow SS GFR/1.73 sq M.predicted among blacks MDRD (S/P/Bld) [Vol rate/Area] 116 ml/min/1.73sqm Invalid Interpretation Code AO Chemistry S Comment on above: Interpretive Data: GFR Population mean for , Non- Americans Ages 20-29 = 116 mL/min/1.73 sq.m. Ages 30-39 = 107 mL/min/1.73 sq.m. Ages 40-49 = 99 mL/min/1.73 sq.m. Ages 50-59 = 93 mL/min/1.73 sq.m. Ages 60-69 = 85 mL/min/1.73 sq.m. Ages 70+ = 75 mL/min/1.73 sq.m. Chronic Kidney Disease: Less than 60 mL/min/1.73 square meters End Stage Renal Disease: Less than 15 mL/min/1.73 square meters GFR/1.73 sq M.predicted among non-blacks MDRD (S/P/Bld) [Vol rate/Area] 96 ml/min/1.73sqm Invalid Interpretation Code AO Chemistry S Comment on above: Interpretive Data: GFR Population mean for , Non- Americans Ages 20-29 = 116 mL/min/1.73 sq.m. Ages 30-39 = 107 mL/min/1.73 sq.m. Ages 40-49 = 99 mL/min/1.73 sq.m. Ages 50-59 = 93 mL/min/1.73 sq.m. Ages 60-69 = 85 mL/min/1.73 sq.m. Ages 70+ = 75 mL/min/1.73 sq.m. Chronic Kidney Disease: Less than 60 mL/min/1.73 square meters End Stage Renal Disease: Less than 15 mL/min/1.73 square meters Glucose [Mass/Vol] 102 mg/dL Normal 70 - 105 mg/dL AO ADM SS Hematocrit (Bld) [Volume fraction] 38.9 % Normal 37.0 - 47.0 % AO Workflow SS Hemoglobin (Bld) [Mass/Vol] 13.8 G/dL Normal 12.0 - 16.0 G/dL AO Workflow SS Lymphocyte, Absolute 3.5 103/mcL Normal 0.8 - 3 .9 10^3/mcL AO Workflow SS Lymphocytes/100 WBC (Bld) 33.0 % Normal 10.0 - 50.0 % AO Workflow SS MCH (RBC) [Entitic mass] 29.3 pg Normal 27.0 - 31.2 pg AO Workflow SS MCHC 35.5 G/dL Normal 33.0 - 37.0 G/dL AO Workflow SS MCV (RBC) [Entitic vol] 82.4 fL Normal 80.0 - 94.0 fL AO Workflow SS Monocyte distribution width Auto (Bld) [Entitic vol] 17.33 1 Normal 0.00 - 20.00 AO Workflow SS Comment on above: Result Comment: For ED adult patients suspected of sepsis, MDW<=20.0 does not rule out sepsis or risk of sepsis Monocyte, Absolute 0.6 103/mcL Normal 0.2 - 1.0 10^3/mcL AO Workflow SS Monocytes/100 WBC (Bld) 5.2 % Normal 1.7 - 13.0 % AO Workflow SS Neutrophil, Absolute 6.5 103/mcL High 2.9 - 6 .2 10^3/mcL AO Workflow SS Neutrophils/100 WBC (Bld) 60.9 % Normal 37.0 - 80.0 % AO Workflow SS Platelet mean volume (Bld) [Entitic vol] 7.8 fL Normal 7.4 - 10.4 fL AO Workflow SS Platelets (Bld) [#/Vol] 338 103/mcL Normal 130 - 400 10^3/mcL AO Workflow SS Potassium [Moles/Vol] 3.8 mmol/L Normal 3.5 - 5.1 mmol/L AO ADM SS RBC (Bld) [#/Vol] 4.72 106/mcL Normal 4.20 - 5.4 0 10^6/mcL AO Workflow SS Sodium [Moles/Vol] 139 mmol/L Normal 136 - 145 mmol/L AO ADM SS Urea nitrogen [Mass/Vol] 13 mg/dL Normal 7 - 18 mg/dL AO ADM SS Urea nitrogen/Creatinine [Mass ratio] 17 ratio Normal 7 - 27 ratio AO ADM SS WBC (Bld) [#/Vol] 10.7 103/mcL Normal 4.6 - 10.8 10^3/mcL AO Workflow SS LABORATORYOrdered By: Teetee Washington on 08-05-2023 Appearance (U) Clear (08/05/23 3:54 AM) Normal Clear AO Auto Urine SS Bilirubin Ql (U) Negative (08/05/23 3:54 AM) Normal Negative AO Auto Urine SS Color (U) Yellow (08/05/23 3:54 AM) Normal AO Auto Urine SS Glucose Test strip (U) [Mass/Vol] Negative Normal Negative AO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 days due to potential side effect of medication. LMP: 3 weeks ago per patient. No reports of vaginal symptoms. Pt has not taken any otc medications at this time. Review of Systems Constitutional: Negative for chills and fever. Respiratory: Negative. Cardiovascular: Negative. Genitourinary: Positive for dysuria and frequency. Negative for difficulty urinating, hematuria and menstrual problem. Musculoskeletal: Positive for back pain. Objective BP 122/72 Pulse 100 Temp 36.9 ?C (98.5 ?F) Resp 16 Wt 89 kg (196 lb 3.4 oz) LMP 05/22/2023 (Exact Date) SpO2 96% BMI 35.89 kg/m? No past medical history on file. No past surgical history on file. ALLERGIES Bee [employer]ing MEDICATIONS EPINEPHrine (EPIPEN) 0.3 mg/0.3 mL auto-injector Inject 0.3 mg intramuscularly. No family history on file. Social History Tobacco Use Smoking status: Never Smokeless tobacco: Never Substance Use Topics Alcohol use: Never Drug use: Never Physical Exam Constitutional: General: She is awake. Cardiovascular: Rate and Rhythm: Normal rate and regular rhythm. Pulmonary: Effort: Pulmonary effort is normal. Breath sounds: Normal breath sounds. Abdominal: Tenderness: There is abdominal tenderness in the suprapubic area. There is no right CVA tenderness or left CVA tenderness. Neurological: Mental Status: She is alert. Assessment and Plan Differential Diagnoses - dysuria is more likely for the following reason(s): suggested by HANDP - pelvic pain is more likely for the following reason(s): suggested by HANDP - pyelonephritis is less likely for the following reason(s): HANDP not suggestive Disposition The patient was discharged. Procedures ASSESSMENT/PLAN: 1. Dysuria - ICD9: 788.1, ICD10: R30.0 (primary diagnosis) acute - Send urine for culture - Patient education for prevention given - BACTERIAL CULTURE, URINE - URINALYSIS, WITH MICROSCOPIC - UA Dip unremarkable for signs of infection - will send urine out for Urinalysis and UAC. - will reach out to patient regarding results and will prescribe antibiotic treatment if warranted based on culture results. 2. Pelvic pain - ICD9: [id number], ICD10: R10.2 - UA Dip unremarkable for signs of infection - will send urine out for Urinalysis and UAC. - UA DIP, URINE (POC) - BACTERIAL CULTURE, URINE - URINALYSIS, WITH MICROSCOPIC - will reach out to patient regarding results and will prescribe antibiotic treatment if warranted based on culture results. Chayo Mantilla TEACHING PROVIDER (Physician/PA/HERPETOLOGIST) NOTE OF PERSONAL INVOLVEMENT IN CARE: I have personally seen and examined the patient and performed the medical decision-making components. I have reviewed the Advanced Practice Registered Nurse (HERPETOLOGIST) Student's documentation and verified the findings in the note as written. Any additions or changes are noted in bold/italics. Signature: April Villegas Date: 06/01/2024 Time: 5:45 PM [facility] 08-05-2023 Hospital Discharge instructions Patient Education 08/05/2023 05:15:01 Flank Pain, Uncertain Cause Flank Pain, Uncertain Cause The flank is the area between your upper abdomen and your back. Pain there is often caused by a problem with your kidneys. It might be a kidney infection or a kidney stone. Other causes of flank pain include spinal arthritis, a pinched nerve from a back injury, or a back muscle strain or spasm. The cause of your flank pain is not certain. You may need other tests. Home care Follow these tips when caring for yourself at home: You may use acetaminophen or ibuprofen to control pain, unless your health care provider prescribed another medicine. If you have chronic liver or kidney disease, talk with your provider before taking these medicines. Also talk with your provider first if you ve ever had a stomach ulcer or GI bleeding. If the pain is coming from your muscles, you may get relief with ice or heat. During the first 2 days after the injury, put an ice pack on the painful area for 20 minutes every 2 to 4 hours. This will reduce swelling and pain. A hot shower, hot bath, or heating pad works well for a muscle spasm. You can start with ice, then switch to heat after 2 days. You might find that alternating ice and heat works well. Use the method that feels the best to you. Follow-up care Follow up with your healthcare provider if your symptoms don t get better over the next few days. When to seek medical advice Call your healthcare provider right away if any of these happen: Repeated vomiting Fever of 100.4 F (38 C) or higher, or as directed by your health care provider Flank pain that gets worse Pain that spreads to the front of your belly (abdomen) Dizziness, weakness, or fainting Blood in your urine Burning feeling when you urinate or the need to urinate often Pain in one of your legs that gets worse Numbness or weakness in a leg [id number] [employer]. [address] [place] [address]. All rights reserved. This information is not intended as a substitute for professional medical care. Always follow your healthcare professional's instructions. Follow Up Care 08/05/2023 03:40:56 With:JOSHUA MCLAIN Address: [address] [place] [phone] [phone] Business (1) When:2-4 days Comments:Use Tylenol, Toradol for pain, finish your antibiotic, return or follow-up with your doctor if any worsening or concerning symptoms. With:Follow up with primary care provider Address:Unknown When:2-4 days [facility] 08-05-2023 Note Discharge Instructions Thank you for allowing [facility] to assist you with your healthcare needs. The following is important discharge information regarding your hospital visit. Diagnosis from Today's Visit Flank pain Flank pain What to Do Next Instructions from Your Care Team No qualifying data available. Post Acute Orders No qualifying data available. You Need to Schedule the Following Appointments Follow Up with JOSHUA MCLAIN When Within 2-4 days Why: Use Tylenol, Toradol for pain, finish your antibiotic, return or follow-up with your doctor if any worsening or concerning symptoms. Where: [address] [place] [address]- [phone] Business (1) Follow Up with Follow up with primary care provider When Within 2-4 days Allergies No Known Medication Allergies Medications Please ask your primary doctor or pharmacist before taking any other medication not listed, including over the counter drugs, herbal medications, vitamins and or supplements as they may interact with your home medications. What How Much When Instructions Last Dose New ketorolac (ketorolac 10 mg oral tablet) 1 tab(s) by mouth Four (4) times a day as needed for as needed for pain Duration: 3 Days not to exceed 40 mg/ day and 5 days duration for all dose forms Printed Prescription Please take this list to your next doctor s visit. Bring all medications you take, including over the counter medications, herbals and other supplements with you to your doctor s visit. Patients and families are reminded to discard old lists and to update any records with all medication providers or retail pharmacies. Medication Leaflets ketorolac (oral/injection) (VALENTINE edmond ROLE ak) What is the most important information I should know about ketorolac? Ketorolac can increase your risk of fatal heart attack or stroke. Do not use this medicine just before or after heart bypass surgery (coronary artery bypass graft, or CABG). Ketorolac may also cause stomach or intestinal bleeding, which can be fatal. You should not use ketorolac if you have any active or recent bleeding (including bleeding inside your body), a head injury, a stomach ulcer, severe kidney disease, a bleeding or blood-clotting disorder, a history of severe allergic reaction to aspirin or an NSAID, if you are scheduled to have surgery, if you are in late , or if you are breast-feeding a baby. You should not use ketorolac if you also take pentoxifylline, probenecid, aspirin, or other NSAIDs. What is ketorolac? Ketorolac is a nonsteroidal anti-inflammatory drug (NSAID) that is used short-term (5 days or less) to treat moderate to severe pain. Ketorolac may also be used for purposes not listed in this medication guide. What should I discuss with my healthcare provider before taking ketorolac? Ketorolac can increase your risk of fatal heart attack or stroke, even if you don't have any risk factors. Do not use this medicine just before or after heart bypass surgery (coronary artery bypass graft, or CABG). Ketorolac may also cause stomach or intestinal bleeding, which can be fatal. These conditions can occur without warning while you are using ketorolac, especially in older adults. You should not use ketorolac if you are allergic to it, or if you have: active or recent stomach ulcer, stomach bleeding, or intestinal bleeding; a bleeding or blood-clotting disorder; a closed head injury or bleeding in your brain; bleeding from a recent surgery; severe kidney disease or dehydration; a history of asthma or severe allergic reaction after taking aspirin or an NSAID; if you are scheduled to have surgery (especially bypass surgery); or if you are in late or you are breast-feeding a baby. Some medicines can cause unwanted or dangerous effects when used with ketorolac. Your doctor may need to change your treatment plan if you use any of the following drugs: pentoxifylline; probenecid; or aspirin or other NSAIDs--ibuprofen (Advil, Motrin), naproxen (Aleve), celecoxib, diclofenac, indomethacin, meloxicam, and others. Tell your doctor if you have ever had: heart disease, high blood pressure, high cholesterol, diabetes, or if you smoke; a heart attack, stroke, or blood clot; stomach ulcers or bleeding; inflammatory bowel disease, ulcerative colitis, or Crohn's disease; liver disease; kidney disease (or if you are on dialysis); asthma; or fluid retention. If you are , you should not take ketorolac unless your doctor tells you to. Taking an NSAID during the last 20 weeks of can cause serious heart or kidney problems in the unborn baby and possible complications with your . Tell your doctor if you are . Ketorolac is not approved for use by anyone younger than 2 years old. How should I take ketorolac? Follow all directions on your prescription label and read all medication guides. Use the lowest dose that is effective in treating your condition. Ketorolac oral is taken by mouth. Ketorolac injection is given as an infusion into a vein. A healthcare provider will give you this injection Ketorolac should not be used for longer than 5 days, including both injection plus tablets. Long-term use of this medicine can damage your kidneys or cause bleeding. Store at room temperature away from moisture, heat, and light. Keep the bottle tightly closed when not in use. What happens if I miss a dose? Since ketorolac is used for pain, you are not likely to miss a dose. Skip any missed dose if it is almost time for your next dose. Do not use two doses at one time. What happens if I overdose? Seek emergency medical attention or call the Poison Help line at . What should I avoid while taking ketorolac? Avoid drinking alcohol. It may increase your risk of stomach bleeding. Ask a doctor or pharmacist before using other medicines for pain, fever, swelling, or cold/flu symptoms. They may contain ingredients similar to ketorolac (such as aspirin, ibuprofen, ketoprofen, or naproxen). What are the possible side effects of ketorolac? Get emergency medical help if you have signs of an allergic reaction (hives, difficult breathing, swelling in your face or throat) or a severe skin reaction (fever, sore throat, burning in your eyes, skin pain, red or purple skin rash that spreads and causes blistering and peeling). Get emergency medical help if you have signs of a heart attack or stroke: chest pain spreading to your jaw or shoulder, sudden numbness or weakness on one side of the body, slurred speech, feeling short of breath. Stop using ketorolac and call your doctor at once if you have: shortness of breath (even with mild exertion); swelling or rapid weight gain; a skin rash, no matter how mild; signs of stomach bleeding--bloody or tarry stools, coughing up blood or vomit that looks like coffee grounds; liver problems--loss of appetite, stomach pain (upper right side), tiredness, itching, dark urine, anna-colored stools, jaundice (yellowing of the skin or eyes); kidney problems--little or no urination, swelling in your feet or ankles, feeling tired or short of breath; o low red blood cells (anemia)--pale skin, unusual tiredness, feeling light-headed or short of breath, cold hands and feet. Common side effects may include: nausea, stomach pain, indigestion, diarrhea; dizziness, drowsiness; headache; or swelling. This is not a complete list of side effects and others may occur. Call your doctor for medical advice about side effects. You may report side effects to FDA at 7-370-RKW-6389. What other drugs will affect ketorolac? Ask your doctor before using ketorolac if you take an antidepressant. Taking certain antidepressants with an NSAID may cause you to bruise or bleed easily. Tell your doctor about all your other medicines, especially: lithium; methotrexate; heparin or warfarin (Coumadin, Jantoven); antipsychotic medicine; heart or blood pressure medication, including a diuretic or 'water pill'; seizure medicine (carbamazepine, phenytoin); or steroid medicine (such as prednisone). This list is not complete. Other drugs may affect ketorolac, including prescription and [id number] medicines, vitamins, and herbal products. Not all possible drug interactions are listed here. Where can I get more information? Your pharmacist can provide more information about ketorolac. Remember, keep this and all other medicines out of the reach of children, never share your medicines with others, and use this medication only for the indication prescribed. Every effort has been made to ensure that the information provided by [employer]. [employer]') is accurate, up-to-date, and complete, but no guarantee is made to that effect. Drug information contained herein may be time sensitive. [employer] information has been compiled for use by healthcare practitioners and consumers in the [place] and therefore [employer] does not warrant that uses outside of the [place] are appropriate, unless specifically indicated otherwise. [employer] drug information does not endorse drugs, diagnose patients or recommend therapy. [employer] drug information is an informational resource designed to assist licensed healthcare practitioners in caring for their patients and/or to serve consumers viewing this service as a supplement to, and not a substitute for, the expertise, skill, knowledge and judgment of healthcare practitioners. The absence of a warning for a given drug or drug combination in no way should be construed to indicate that the drug or drug combination is safe, effective or appropriate for any given patient. [employer] does not assume any responsibility for any aspect of healthcare administered with the aid of information [employer] provides. The information contained herein is not intended to cover all possible uses, directions, precautions, warnings, drug interactions, allergic reactions, or adverse effects. If you have questions about the drugs you are taking, check with your doctor, nurse or pharmacist. Copyright 7407-4135 [employer]. Version: 12.. Revision Date: 10/31/2022. Education Materials Flank Pain, Uncertain Cause The flank is the area between your upper abdomen and your back. Pain there is often caused by a problem with your kidneys. It might be a kidney infection or a kidney stone. Other causes of flank pain include spinal arthritis, a pinched nerve from a back injury, or a back muscle strain or spasm. The cause of your flank pain is not certain. You may need other tests. Home care Follow these tips when caring for yourself at home: You may use acetaminophen or ibuprofen to control pain, unless your health care provider prescribed another medicine. If you have chronic liver or kidney disease, talk with your provider before taking these medicines. Also talk with your provider first if you ve ever had a stomach ulcer or GI bleeding. If the pain is coming from your muscles, you may get relief with ice or heat. During the first 2 days after the injury, put an ice pack on the painful area for 20 minutes every 2 to 4 hours. This will reduce swelling and pain. A hot shower, hot bath, or heating pad works well for a muscle spasm. You can start with ice, then switch to heat after 2 days. You might find that alternating ice and heat works well. Use the method that feels the best to you. Follow-up care Follow up with your healthcare provider if your symptoms don t get better over the next few days. When to seek medical advice Call your healthcare provider right away if any of these happen: Repeated vomiting Fever of 100.4 F (38 C) or higher, or as directed by your health care provider Flank pain that gets worse Pain that spreads to the front of your belly (abdomen) Dizziness, weakness, or fainting Blood in your urine Burning feeling when you urinate or the need to urinate often Pain in one of your legs that gets worse Numbness or weakness in a leg [id number] [employer]. [address] [place] [address]. All rights reserved. This information is not intended as a substitute for professional medical care. Always follow your healthcare professional's instructions. Additional Information VACCINATE! IT SAVES LIVES! Members of the community who have not yet received the COVID-19 vaccine and would like to receive it can visit one of [facility] vaccine clinics. There are many vaccine clinic locations within the [facility]. For locations and available times, please visit [email or web address] It is important to note that some COVID mobile vaccine clinics are held outdoors and may be canceled in rainy or stormy conditions. To learn more about pediatric vaccinations (ages 5-11), we invite you to visit the [facility] webpage. [email or web address]/p [email or web address]-Ustbu-Bucckubypom-Freq [email or web address]-[email or web address].html To learn more about the COVID-19 vaccine, we invite you to visit the CDC website for a list of frequently asked questions. https://www.cdc.gov/coronavirus/ 2019-ncov/vaccines/faq.html [facility] Patient Portal Access Instructions: Stay connected with your healthcare team and access your personal medical information anytime with the [employer] Patient Portal. If you would like a full copy of your medical records please contact the [facility] Medical Records Department Friday through Friday between 8a.m. and 4:30p.m. Please follow the directions below to access the portal: 1.Access the email account you provided upon registration to the [facility].2.Look for an invitation email from [facility].3.Open the email and access the invitation link: Accept Invitation to [facility]4.Fill in the required last to create your account. Sign into [email or web address] with your username and password that you created in the above steps to stay up to date. You can then view a summary of results, a summary of your visits, and the ability to download your summaries to your computer or send the information securely to a physician. Remember that your healthcare information is confidential, so carefully consider who you will allow to register on the [facility] Patient Portal for access to your information. You can also access the [employer] Patient Portal on the [employer] mass[employer]. Simply click on Health Records under Health Data and then click on the [employer] logo. HOW TO SAFELY DISPOSE OF PRESCRIPTION MEDICATIONS Please use one of the following methods to safely dispose of your unused medications. 1.Use a drug disposal kit: the drug disposal pouch allows you to safely discard your old and unused drugs. Ask your nurse to give you one when you are discharged.2.Visit a local take-back location: Many local pharmacies and police departments have programs that collect old and unwanted prescription drugs. Call your local pharmacy or go to http://bit.Ketera/6E6To3u to find one close to you.3.Make use of household items: Use cat litter or old coffee grounds to dispose medications if other options are not available. Mix your drugs with these household products, seal them in an airtight container and throw it into the garbage. Call [facility]: [phone] to be sure your drugs can be disposed of in this way. Some medicines may require a different approach.4.Never flush your medications down the toilet. IF YOU HAVE BEEN PRESCRIBED AN OPIOIDS FOR PAIN If you have been prescribed an opioid (such as hydrocodone, oxycodone or morphine), it is critical to understand the possible side effects and risks of opioid pain medications. Even when taken as directed, opioids can have several side effects including: Tolerance, meaning you might need to take more of a medication for the same pain relief. Nausea, vomiting and/or constipation. Sleepiness, dizziness, dry mouth, confusion, depression or itching. Physical dependence, meaning you have withdrawal symptoms when a medication is stopped ? this can develop within a few days. KNOW YOUR RESPONSIBILITIES It is important to know exactly how much and how often to take the opioid pain medications you are prescribed. Never take opioids in higher amounts or more often than prescribed. Do not combine opioids with alcohol or other drugs that cause drowsiness, such as benzodiazepines, also known as benzos, including diazepam and alprazolam, muscle relaxants or sleep aids. Never sell or share prescription opioids. This is illegal. Store opioids in a secure place and out of reach of others (including children, family, friends and visitors). The last page(s) of this document has been signed and retained as a CHART COPY Signatures Patient Education Materials Flank Pain, Uncertain Cause Medication Leaflets ketorolac (oral/injection) My discharge plan and instructions have been reviewed and explained to me and IROSA M EMILY understand my current condition and have read and understand these discharge instructions. I have received a written copy of the plan/instructions. If I have questions, I am aware that I should contact my doctor. 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 Multiplanar reformatted images are provided for review. Automated exposure control, iterative reconstruction, and/or weight based adjustment of the mA/kV was utilized to reduce the radiation dose to as low as reasonably achievable. COMPARISON: None. HISTORY: ORDERING SYSTEM PROVIDED HISTORY: Reason for Exam: Left flank pain FINDINGS: The heart is normal in size. No pericardial thickening or effusion. The visualized lung bases are without acute abnormality. The aorta is nonaneurysmal with no atherosclerosis. There are a few prominent left para-aortic lymph nodes measuring up to 0.9 cm (series 2, image 51). More than expected normal size central mesentery lymph nodes are most likely reactive. The liver, gallbladder, spleen, pancreas, and bilateral adrenal glands are unremarkable. The kidneys are roughly symmetric in size. No hydronephrosis or renal calculi. The ureters and bladder are unremarkable. The uterus is unremarkable. There is a 5 cm simple right adnexal cyst. No pneumoperitoneum or free fluid. The large and small bowel are normal in caliber. The appendix is unremarkable. Few loops of small bowel within the left upper abdomen may have mild wall thickening. There are a few moderately distended air-filled loops of small intestine, predominantly in the left upper abdomen also. No acute osseous abnormality. IMPRESSION: Questionable small bowel wall thickening and adynamic ileus within the left upper abdomen could represent mild enteritis with reactive lymph nodes in the appropriate clinical setting. 5 cm right simple adnexal cyst. No dedicated follow-up required. I have personally reviewed the images of this examination, and agree with the resident's findings and interpretation. RECOMMENDATIONS: Right adnexal simple-appearing cyst measuring 5 cm. No follow-up imaging is recommended. Reference: JACR 2019;17(2):[id number] Interpreted by: Tony Oliva MD Preliminary Report By: Alfredo Bui Electronically signed By Tony Oliva MD Dictated Date: 08/05/2023 4:46:08 AM Prelim Date: 08/05/2023 4:55:24 AM Sign Date: 08/05/2023 5:04:02 AM Ordering Provider: JUD ARIAS [facility] 06-12-2023 Note HNO ID: [id number] Author: YUKI SHRESTHA APRN.CNM Service: ? Author Type: Solution Analyst Type: Progress Notes Filed: 06/12/2023 12:24 Note Text: Kriss is a 17 year old who presents for an annual gynecologic exam without complaints. She is new to office and would like to establish care. Presents: alone Menses: cycles every 28-30 days lasting 4 days. Heavy the first 2 days Wearing pads and changing every couple of hours. First day is painful cramping. 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 No pertinent past medical history.History reviewed. No pertinent surgical history.History reviewed. No pertinent family history.SOCIAL HISTORY Social History Tobacco Use Smoking status: Never Smokeless tobacco: Never Substance Use Topics Alcohol use: Never Drug use: Never REVIEW OF SYSTEMS Abdomen: No bloating, early satiety, indigestion, or increased flatulence. No abdominal pain, nausea, vomiting, diarrhea, or constipation. Bladder: No dysuria, gross hematuria, urinary frequency, urinary urgency, or incontinence. Breast: No breast lumps, nipple d/c, overlying skin changes, redness or skin retraction. Allergies and current medication updated:Yes EXAM: BP 110/66 Ht 5' 2 (1.58m) Wt 176 lb 9.6 oz (80.1kg) LMP 05/22/2023 BMI 32.29 kg/(m2). GENERAL: pleasant, in no apparent distress HEENT: Normocephalic and atraumatic NECK: Supple and full range of motion DERMATOLOGY: Normal and without lesions BREAST: deferred CHEST: Normal inspiratory effort ABDOMEN: Deferred PELVIC: deferred BIMANUAL: deferred NEURO: alert and oriented x3,exam grossly non-focal EXTREMITIES: normal ASSESSMENT/PLAN: 1) Health maintenance: Pap starting at the age of 21. Nutrition, exercise, and routine health maintenance exams reviewed. HPV vaccine completed series.. 2) Contraception: none. Desires - Currently tracking cycles and using ovulation kits- has been trying for close to 9 months Recommended starting PNV No interest in FOREST - suggested partner have sperm evaluation Patient reports continued weight gain- discussed briefly diet and may be interested in weight management in the future 3) STD screening: Declined STD check. 4) Follow up one year or sooner as needed. Yuki Shrestha APRN.[facility] History of Present illness Narrative Kriss is a 17 year old who presents for an annual gynecologic exam without complaints. She is new to office and would like to establish care. Presents: alone Menses: cycles every 28-30 days lasting 4 days. Heavy the first 2 days Wearing pads and changing every couple of hours. First day is painful cramping. 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 No pertinent past medical history.History reviewed. No pertinent surgical history.History reviewed. No pertinent family history.SOCIAL HISTORY Social History Tobacco Use Smoking status: Never Smokeless tobacco: Never Substance Use Topics Alcohol use: Never Drug use: Never REVIEW OF SYSTEMS Abdomen: No bloating, early satiety, indigestion, or increased flatulence. No abdominal pain, nausea, vomiting, diarrhea, or constipation. Bladder: No dysuria, gross hematuria, urinary frequency, urinary urgency, or incontinence. Breast: No breast lumps, nipple d/c, overlying skin changes, redness or skin retraction. Allergies and current medication updated:Yes EXAM: BP 110/66 Ht 5' 2 (1.58m) Wt 176 lb 9.6 oz (80.1kg) LMP 05/22/2023 BMI 32.29 kg/(m^2). GENERAL: pleasant, in no apparent distress HEENT: Normocephalic and atraumatic NECK: Supple and full range of motion DERMATOLOGY: Normal and without lesions BREAST: deferred CHEST: Normal inspiratory effort ABDOMEN: Deferred PELVIC: deferred BIMANUAL: deferred NEURO: alert and oriented x3,exam grossly non-focal EXTREMITIES: normal ASSESSMENT/PLAN: 1) Health maintenance: Pap starting at the age of 21. Nutrition, exercise, and routine health maintenance exams reviewed. HPV vaccine completed series.. 2) Contraception: none. Desires - Currently tracking cycles and using ovulation kits- has been trying for close to 9 months Recommended starting PNV No interest in FOREST - suggested partner have sperm evaluation Patient reports continued weight gain- discussed briefly diet and may be interested in weight management in the future 3) STD screening: Declined STD check. 4) Follow up one year or sooner as needed. Yuki Shrestha APRN.CNM documented in this encounter [facility] Evaluation + Plan note No data available for this section [facility] Evaluation note No assessment inform ation available [facility] Work Phone: Evaluation note Diagnosis Encounter for gynecological examination (general) (routine) without abnormal findings- Primary Patient desires Unspecified procreative management [facility] Dysuria- Primary Pelvic pain documented in this encounter [facility] Summary Purpose Family History No Family History Records FoundNo Family History Records FoundNo Family History Records FoundNo Family History Records Found No data available for this section No Family History Records FoundNo Family History Records FoundNo Family History Records FoundNo Family History Records Found Advance Directives No Advanced Directives Records FoundNo Advanced Directives Records FoundNo Advanced Directives Records FoundNo Advanced Directives Records FoundNo Advanced Directives Records FoundNo Advanced Directives Records FoundNo Advanced Directives Records FoundNo Advanced Directives Records Found Chief Complaint and Reason for Visit Chief Complaint Urinary tract infect ion Additional Source Comments INFORMATION SOURCE (unrecogn ized section and content) DATE CREATED AUTHOR 07/18/2018 [facility] DATE CREATED AUTHOR AUTHOR'S ORGANIZ ATION 03/10/2022 [facility] DATE CREATED AUTHOR AUTHOR'S ORGANIZ ATION 03/28/2022 [facility] DATE CREATED AUTHOR AUTHOR'S ORGANIZ ATION 04/30/2022 [facility] DATE CREATED AUTHOR AUTHOR'S ORGANIZ ATION 09/21/2023 [facility] ([place] DATE CREATED AUTHOR AUTHOR'S ORGANIZ ATION 06/03/2024 [facility] DATE CREATED AUTHOR AUTHOR'S ORGANIZ ATION 08/25/2024 [facility] DATE CREATED AUTHOR AUTHOR'S ORGANIZ ATION 09/06/2024 [facility] <item> Privacy Markings (unrecogniz ed section and content) Section Author: Ashlee Cortés PROHIBITION ON REDISCLOSURE OF CONFIDENTIAL INFORMATION This notice accompanies a disclosure of information concerning a client made to you with the consent of such client. Goals (unrecognized section and content) Goals may be documented in a n alternate section No data available for this section Source Comments (unrecognize d section and content) In the event this informatio n is protected by the Federal Confidentiality of Alcohol and Drug Abuse Patient Records regulations: The Federal rules restrict any use of the information to criminally investigate or prosecute any alcohol or drug abuse patient.[facility] the event this information is protected by the Federal Confidentiality of Alcohol and Drug Abuse Patient Records regulations: The Federal rules restrict any use of the information to criminally investigate or prosecute any alcohol or drug abuse patient.[facility] Center[facility] the event this information is protected by the Federal Confidentiality of Alcohol and Drug Abuse Patient Records regulations: The Federal rules restrict any use of the information to criminally investigate or prosecute any alcohol or drug abuse patient.[facility] Reason for Visit (unrecogniz ed section and content) Reason Comments Yearly Exam Reason Comments Pelvic Pain low back pain x 5 da ys Patient Care team informatio n (unrecognized section and content) Patient Portal Representative Relationship Specialty Start Date End Date Jessy Logan NP [address] [place] [id number] PCP - General Internal Medicine 06/01/24 Patient Portal Representative Relationship Specialty Start Date End Date Jessy Logan NP [address] [place] [id number] PCP - General Internal Medicine 06/01/24 FOR RECORDS PERTAINING TO PATIENTS WHO ARE OR HAVE BEEN ENROLLED IN A CHEMICAL DEPENDENCY/SUBSTANCEABUSE PROGRAM, SOME INFORMATION MAY BE OMITTED. This clinical summary was aggregated from multiple sources. Caution should be exercised in using it in the provision of clinical care. This summary normalizes information from multiple sources, and as a consequence, information in this document may materially change the coding, format and clinical context of patient data. In addition, data may be omitted in some cases. CLINICAL DECISIONS SHOULD BE BASED ON THE PRIMARY CLINICAL RECORDS. [facility]. provides no warranty or guarantee of the accuracy or completeness of information in this document.
[2024-09-06 06:40] VITALS: BP 129/84; PULSE 72; RESP 16; TEMP 36.6; O2SAT 99
== END 2024-09-06 06:46 | disposition home or self-care (01) ==
PROVIDERS: Emergency Provider Emergency Medicine; PCP Nurse Practitioner Family; Visit Provider Emergency Medicine
DX: N94.6 Dysmenorrhea, unspecified (principal); E11.9 Type 2 diabetes mellitus without complications; Z79.84 Long term (current) use of oral hypoglycemic drugs
CPT/HCPCS: 81001; 81025; 82962; 87086; 87088; 96361; 96374; 99284; A4216

== ENCOUNTER → 2024-09-20 | Outpatient (CLI) | payer OTHER, SELFPAY | END | disposition home or self-care (01) | LOC: LABSPEC 16:58 | PROVIDERS: PCP Nurse Practitioner Family; Visit Provider Nurse Practitioner Family | DX: Z12.4 Encounter for screening for malignant neoplasm of cervix (principal) | CPT/HCPCS: 88175; G0145 ==

== ENCOUNTER → 2024-09-23 | Outpatient (CLI) | payer OTHER, SELFPAY ==
--- NOTE | 2024-09-23 16:32 | US_ITS ---
PROCEDURE: PELVIC W/ TRANSVAGINAL REASON FOR EXAM: INFERTILITY X 1 YEAR TECHNIQUE: PELVIC W/ TRANSVAGINAL COMPARISON: None FINDINGS: LMP: September 03, 2024 Measurements: Uterus: 7.5 cm x 4.1 cm x 2.9 cm with a volume of 47.37 mL Endometrial Thickness: 8 mm. It is trilaminar in appearance. Right Ovary: 1.8 cm x 2.5 cm x 2.7 cm with a volume of 6.31 mL. Left Ovary: 1.6 cm x 1.8 cm x 2.6 cm with a volume of 3.75 mL. TRANSABDOMINAL: Uterus: Normal size, myometrial echotexture, and contour. Endometrium: Unremarkable. Right ovary: Normal size and echotexture. Left ovary: Normal size and echotexture. Other: No large pelvic mass identified. Transvaginal sonography was performed to better visualize the endometrium. TRANSVAGINAL: Uterus: Anteverted. Normal contour and myometrial echotexture. Endometrium: Normal echotexture. Right ovary: Normal size and echotexture. Left ovary: Normal size and echotexture. Other adnexal findings: None. Cul-de-sac: No free intraperitoneal fluid identified. Tenderness: No tenderness US/Pelvic w/ Transvaginal IMPRESSION: NORMAL TRANSABDOMINAL AND TRANSVAGINAL PELVIC ULTRASOUND. Reading Location: [id number]
== END | disposition home or self-care (01) ==
LOC: US 16:28
PROVIDERS: PCP Nurse Practitioner Family; Referring Provider Nurse Practitioner Family; Visit Provider Nurse Practitioner Family
DX: Z31.9 Encounter for procreative management, unspecified (principal); N97.9 Female infertility, unspecified
CPT/HCPCS: 76830; 76856

== ENCOUNTER 2025-01-21 18:16 | Emergency (ER) | payer OTHER, SELFPAY ==
[2025-01-21 18:17] VITALS: BP 124/67; PULSE 61; RESP 18; TEMP 37.1; O2SAT 99; BMI 33.3
--- NOTE | 2025-01-21 18:44 | ED.VIS.FEGU ---
HPI HPI - Female History of Present Illness Chief Complaint: Vag Bld, Preg Narrative Narrative: Patient is a 19-year-old female with past medical history of type 1 diabetes, G1, P0 currently 7 weeks who presents to the emergency department with a chief complaint of vaginal bleeding. Patient notes that about 45 minutes ago she noted that she had gush of blood prompting her to come here for further evaluation management. She states that she followed up with [facility] in the past and had a confirmed test as she had a positive test at home. She denies any abdominal pain denies any urinary symptoms. She feels that she is still having some bleeding. Patient states that she has not had a ultrasound yet. PFSH PFSH Home Medications ?Medication ?Instructions ?Recorded ?Last Taken ?Type metformin 500 mg tablet,extended 2,000 mg PO DAILY 09/06/24 Unknown History release 24 hr ondansetron 4 mg disintegrating 4 mg PO Q6H PRN nausea and 09/06/24 Unknown Rx tablet vomiting #20 tabs docosahexaenoic acid 200 mg mg PO 01/18/25 Unknown History capsule ( DHA) insulin glargine 100 unit/mL (3 8 unit subcut QPM 01/18/25 Unknown History mL) subcutaneous pen (Basaglar KwikPen U-100 Insulin) insulin lispro 100 unit/mL 1 sliding scale dose subcut 01/18/25 Unknown History subcutaneous cartridge (Humalog USEASDIRECTD U-100 Insulin) cephalexin 500 mg capsule 500 mg PO BID #10 caps 01/22/25 Unknown Rx Allergy/AdvReac Type Severity Reaction Status Date / Time No Known Allergies Allergy Verified 01/21/25 18:18 Family History Mother Diabetes Grandmother Myocardial infarction Surgical History [place] teeth removed Social History adopted: No household members: significant other housing: house number of children: 0 current occupational status: employed current occupation: [employer] current occupational exposures/hazards: No pets and animals: Yes pets and animals: cat(s), dog(s) and other details: 2 goats history of recent travel: No sexually active: Yes Smoking Status: Never smoker second hand exposure: No alcohol intake: current alcohol intake frequency: holidays/special occasions only details: Not while substance use type: does not use well-balanced diet: daily or most days caffeine: No eating out: 1-3 times/week during the past year weight has: decreased > 10 lbs what type of physical activity do you participate in: none and weight training frequency: 1-2 times per week duration: 15-30 minutes/day jun/alevism: None seatbelt use: always do you feel safe at home: Yes additional social history: 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 ROS ROS ED ROS Narrative Constitutional: Denies any fevers or chills Abdomen: Denies abdominal pain : Complains of vaginal bleeding as noted above denies urinary symptoms Neurological: Denies numbness, weakness, tingling Musculoskeletal: Denies back pain Skin: Denies any rashes or lesions EXAM Physical Exam Narrative Exam Narrative: General: Patient lying in bed rest comfortably did not appear to be in acute distress Head: Atraumatic, normocephalic Eyes: PERRL bilaterally, EOMI bilaterally, no conjunctival injection noted Neck: Soft, supple, trachea midline Cardiovascular: Regular rate and rhythm Abdomen: Soft, nondistended, no tenderness palpation Extremities: +5/5 strength noted to bilateral lower extremities Neurological: Patient follow commands and that she was at [facility] the year is 2024 Skin: Warm, dry, tact no rashes or lesions noted Const Vital Signs: 01/21/25 18:17 01/21/25 20:00 01/21/25 22:00 Temperature 98.7 F Temperature Source Oral Pulse Rate 61 70 89 Respiratory Rate 18 16 18 Blood Pressure 124/67 H 116/80 117/58 L Blood Pressure Mean 86 92 77 Pulse Ox 99 99 99 Oxygen Delivery Method Room Air MDM MDM MDM Narrative Medical decision making narrative: Patient is a 19-year-old female who presents to the emergency department chief complaint of vaginal bleeding in setting of . On the differential diagnosis includes but not limited to subchorionic hemorrhage, miscarriage, threatened miscarriage, UTI. Once workup is obtained and reviewed she will be reevaluated. Patient CBC was reviewed which showed no evidence leukocytosis white blood count 10.7, hemoglobin 12.9, platelet count was noted to be 367. Patient sodium was 130, potassium 3.7, creatinine was 0.64. Patient AST and ALT are 24 and 32 respectively test was positive with hCG quant of 4895. Patient urinalysis reviewed and showed negative leukocyte esterase negative nitrates 25-50 red blood cells with 0-5 white cells and 2+ bacteria she was given a gram Rocephin here in the emergency department she will be placed on Keflex and urine will be sent for culture. Patient's transvaginal ultrasound reviewed and showed intrauterine gestational sac with pole corresponding to 6 weeks 3 days no heartbeat could be detected at this point time. Short-term follow-up with sonography and serial serum beta-hCG levels is recommended. Discussed case with on-call SECURITIES SETTLEMENT PROCESSOR for [facility] and spoke with Dr. Jensen who is recommending close follow-up and she likely is miscarrying. Discussed this plan with the patient she is agreeable all questions are answered she was discharged home in stable condition. Lab Data Labs: Laboratory Results - last 24 hr 01/21/25 01/21/25 01/21/25 18:43 18:49 19:37 WBC 10.7 RBC 4.68 Hgb 12.9 Hct 38.4 MCV 82.1 MCH 27.6 MCHC 33.6 RDW Std Deviation 38.9 RDW Coeff of Marib[place] 12.9 Plt Count 367 MPV 9.8 Immature Gran % (Auto) 0.500 Neut % (Auto) 59.3 Lymph % (Auto) 34.7 [place] % (Auto) 4.3 Eos % (Auto) 0.8 Baso % (Auto) 0.4 Absolute Neuts (auto) 6.3 Absolute Lymphs (auto) 3.70 Nucleated RBC % 0 Sodium 138 Potassium 3.7 Chloride 103 Carbon Dioxide 24.3 Anion Gap 10 BUN 11 Creatinine 0.64 L Estim Creat Clear Calc 144.06 Est GFR (MDRD) Non-Af 129 BUN/Creatinine Ratio 17.8 Glucose 120 H Calcium 9.6 Total Bilirubin 0.23 AST 24 ALT 32 Alkaline Phosphatase 85 Total Protein 7.3 Albumin 4.5 Globulin 2.8 Albumin/Globulin Ratio 1.6 HCG, Quant 4895 H Serum , Qual POSITIVE Urine Color Shaista Urine Clarity Cloudy Urine pH 6.5 Ur Specific [place] 1.010 Urine Protein 30 H Urine Glucose (UA) Normal Urine Ketones Negative Urine Occult Blood 250 H Urine Nitrite Negative Urine Bilirubin Negative Urine Urobilinogen Normal Ur Leukocyte Esterase Negative Urine RBC 25-50 SEEN Urine WBC 0-5 SEEN Ur Squamous Epith Cells 5-10 SEEN Urine Bacteria 2+ Urine Mucus 0 SEEN Blood Type B POSITIVE Radiography Diagnostic Testing: Clinical Impression(s) from Imaging Studies Obstetrics Ultrasound 01/21/25 19:22 IMPRESSION: Intrauterine gestational sac with pole corresponding to 6 weeks 3 days. No heartbeat could be detected at this moment. Short-term follow-up sonography and serial serum beta HCG levels is recommended. Reading Location: [facility] Discharge Plan Triage Chief Complaint: Vag Bld, Preg ED Provider: Alfredo Early Dx/Rx/DC Orders Clinical Impression: , Diabetes, Vaginal bleeding in Prescriptions: New cephalexin 500 mg capsule 500 mg PO BID Qty: 10 0RF No Action Humalog U-100 Insulin 100 unit/mL cartridge 1 sliding scale dose subcut USEASDIRECTD Rx Instructions: 1unit for every 15grams of carbs DHA 200 mg capsule PO insulin glargine [Basaglar KwikPen U-100 Insulin] 100 unit/mL (3 mL) insulin pen 8 unit subcut QPM metformin 500 mg tablet extended release 24 hr 2,000 mg PO DAILY ondansetron 4 mg tablet,disintegrating 4 mg PO Q6H PRN (Reason: nausea and vomiting) Qty: 20 0RF Primary Care Provider: Jessy Logan NP Referrals: Jessy Logan NP, [employer]ING [employer] [Primary Care Provider, Family Practice] Mary Carmen Hill DO [Med Staff - Active Staff, Obstetrics-Gynecology (OBGYN)] Activity Restrictions/Additional Instructions: Follow-up with your SECURITIES SETTLEMENT PROCESSOR call their office on Friday for an appointment for close follow-up. Return with worsening symptoms or any concerns. If you are soaking through more than 1 pad an hour you need to return to the emergency department. Print Language: Tanzanian Disposition Disposition: Home, Self Care
[2025-01-21 19:00] LABS: Hematocrit 38.4 % (37-47); Hemoglobin 12.9 g/dL (12.0-15.0); Immature Granulocytes Count 0.050 X10^3/uL (0.0-0.0); Mean Corp Hgb Conc 33.6 g/dL (32-36); Mean Corpuscular Volume 82.1 fL (81-99); Mean Platelet Vol. 9.8 fl (6.2-12.0); NRBC Flagged by Analyzer 0 % (0-5); Platelet Count 367 K/mm3 (150-450); RBC Distribution Width CV 12.9 % (11.6-14.6); RBC Distribution Width SD 38.9 fl (35.1-43.9); Red Blood Count 4.68 M/mm3 (4.2-5.4); White Blood Count 10.7 K/mm3 (4.4-11.0)
[2025-01-21 19:08] LABS: Internal QC Validated? YES +Cl - CLEAR BKGD; Record Kit Lot#, Serum Preg. 980607
[2025-01-21 19:11] LABS: Pregnancy, Serum, hCG Quali. POSITIVE Negative
[2025-01-21 19:18] LABS: AST(SGOT) 24 U/L (<=31); Alanine Aminotransfer ALT/SGPT 32 U/L (<=34); Albumin, Serum 4.5 g/dL (3.5-5.0); Alkaline Phosphatase 85 U/L (35-104); Anion Gap 10 (5-15); BUN 11 mg/dL (4-19); BUN/Creat Ratio 17.8 RATIO (10-20); Calcium,Total 9.6 mg/dL (7.6-11.0); Carbon Dioxide 24.3 mmol/L (21.0-32.0); Chloride 103 mmol/L (98-108); Estimated Creatinine Clearance 144.06 ml/min (50-250); Globulin 2.8 g/dL (2.2-4.2); Glucose 120 mg/dL (70-99); Potassium 3.7 mmol/L (3.3-5.1)
--- NOTE | 2025-01-21 19:22 | US_ITS ---
PROCEDURE: TRANSVAGINAL W/PREG US 01/21/2025 REASON FOR EXAM: VAG BLEEDING TECHNIQUE: Procedure Code: [id number] Modality: US Procedure: TRANSVAGINAL W/PREG US COMPARISON: Pelvic ultrasound 09/23/2024 FINDINGS The uterus measures 6.8 x 5.8 x 3.6 cm. A gestational sac is identified within the uterus. The mean sac diameter measures 8 mm. Within this gestational sac, a pole and yolk sac are identified. The crown rump length measures 5 mm and corresponds to a gestational age of 6 weeks 3 days. However, real-time examination could not detect a heartbeat at this moment. The right ovary measures 2.2 x 1.5 x 1.0 cm and is unremarkable. The left ovary is not visualized. No adnexal masses are seen. There is no fluid in the cul-de-sac. US/Transvaginal w/Preg US IMPRESSION: Intrauterine gestational sac with pole corresponding to 6 weeks 3 days. No heartbeat could be detected at this moment. Short-term follow-up sonography and serial serum beta HCG levels is re commended. Reading [facility]
[2025-01-21 19:43] LABS: Mucous, Urine 0 SEEN /hpf (<or=2+)
--- OUTSIDE RECORDS SUMMARY | 2025-01-21 19:50 | XMS RPT_ITS | CCD ---
Author Organization [facility] Care Team Providers Care Sales Representative [employer] Name Role Phone José Farnsworth Admitting Unavailable José Farnsworth Attending Unavailable Aurelia Ventura Primary Care Unavailable Aurelia Ventura Unavailable Gisel Ruiz Unavailable Harsha DAVIS, RYAN Crarasco Attending Provider Gisel Ruiz Attending Unavailmonica Ventura, Mrs. Aurelia Duran Primary Care Unavail able Vinny Sanchez Attending Unavailable Audrey, Mrs. Aurelia Duran Primary Care Unavail able TATIANA MACEDO Attending Unavailable BARBARA ÁLVAREZ Primary Care Unavailable REFERRED, SELF Referring Unavailable Unavailable Primary Care Provider Unavailmonica ARIAS MD, DR RENNER Attending JESSY Mixon Attending JESSY Hamede Primary Care Jessy Reese NP Primary Care Provider YUKI CASTILLO Attending Unavailable JESSY LOGAN Primary Care Unavailable Jessy Bates Primary Care Provider Dr. Alfredo Early DO Emergency Provider Dr. Alfredo Early DO Attending Provider Griselda Barrera Attending Provider Desmond MADRIGAL-CJessy Referring Provider [phone] Geno MADRIGAL-Griselda Monet Referring Provider JESSY MERLOS Primary Care Physician LOGAN FLARE MAKER-GARMENT MANUFACTURING SUPERVISOR, JESSY L Primary Care Yuriy GOMEZ MD, DOMO Attending Unavaila ble LOGAN FLARE MAKER-GARMENT MANUFACTURING SUPERVISOR, JESSY L Primary Care Yuriy GOMEZ MD, DOMO Attending Unavaila ble LOGAN FLARE MAKER-GARMENT MANUFACTURING SUPERVISOR, JESSY L Attending Unavai lable LOGAN FLARE MAKER-GARMENT MANUFACTURING SUPERVISOR, JESSY L Primary Care Unavai lable LOGAN FLARE MAKER-GARMENT MANUFACTURING SUPERVISOR, JESSY L Attending Unavai lable LOGAN FLARE MAKER-GARMENT MANUFACTURING SUPERVISOR, JESSY L Primary Care Unavai lable LOGAN FLARE MAKER-GARMENT MANUFACTURING SUPERVISOR, JESSY L Attending Unavai lable LOGAN FLARE MAKER-GARMENT MANUFACTURING SUPERVISOR, JESSY L Primary Care Unavai lable LOGAN FLARE MAKER-GARMENT MANUFACTURING SUPERVISOR, JESSY L Attending Unavai lable LOGAN FLARE MAKER-GARMENT MANUFACTURING SUPERVISOR, JESSY L Primary Care Unavai lable LOGAN FLARE MAKER-GARMENT MANUFACTURING SUPERVISOR, JESSY L Attending Unavai lable LOGAN FLARE MAKER-GARMENT MANUFACTURING SUPERVISOR, JESSY L Primary Care Unavai lable LOGAN FLARE MAKER-GARMENT MANUFACTURING SUPERVISOR, JESSY L Primary Care Unavai labpaige GOMEZ MD, DOMO Attending Unavaila ble LOGAN FLARE MAKER-GARMENT MANUFACTURING SUPERVISOR, JESSY L Attending Unavai lable LOGAN FLARE MAKER-GARMENT MANUFACTURING SUPERVISOR, JESSY L Primary Care Unavai lable Logan MELT DOWN FURNACE OPERATOR, [facility] Primary Care Unavailable Griselda Lora Attending Unavailable Griselda Lora Referring Unavailable Logan MELT DOWN FURNACE OPERATOR, [facility] Primary Care Unavailable Griselda Lora Attending Unavailable Alfredo Early Attending Unavailable Logan MELT DOWN FURNACE OPERATOR, [facility] Primary Care Unavailable Logan MELT DOWN FURNACE OPERATOR, [facility] Primary Care Unavailable Logan MELT DOWN FURNACE OPERATOR, [facility] Referring Unavailable Griselda Lora Attending Unavailable Logan MELT DOWN FURNACE OPERATOR, [facility] Primary Care Unavailable Logan MELT DOWN FURNACE OPERATOR, [facility] Referring Unavailable Mary Carmen Hill Attending Unavailabl e Allergies Allergy Classification Reported Allergen(s) Allergy Type Date of Onset Reaction(s) Facility (4 sources) Bee/Wasp/Ant venom; Translations: [Bee Stings] Propensity to adverse reactions (disorder) Swelling (morphologic abnormality) [facility] Repository (1 source) No Known Medication Allergies; Translations: [No Known Medication Allergies] Propensity to adverse reactions to drug (disorder) [facility] Repository (1 source) bee venom; Translations: [BEE VENOM] Propensity to adverse reactions to drug (disorder) 4 [facility] Repository (4 sources) Bee Sting; Translations: [BEE STING] Allergy to substance 4 Anaphylaxis [facility] NEGATED: Highlighted row has been ruled out! (1 source) Drug allergy [facility] NEGATED: Highlighted row has been ruled out! (1 source) Drug allergy [facility] NEGATED: Highlighted row has been ruled out! (1 source) Drug allergy [facility] Medications Current Medications Medication Drug Class(es) Dates Sig (Normalized) Sig (Original) [id number] 0.3 ml EPINEPHrine 1 mg/ml auto-injector (2 sources) alpha-Adrenergic Agonist, beta-Adrenergic Agonist, Catecholamine Start: 04-30-2022 EPINEPHrine (EPIPEN) 0.3 mg/0.3 mL auto-injector Inject 0.3 mg intramuscularly. 04/30/2022 Active FreeStyle Zhou 3+ Sensors (3 sources) Start: 11-08-2024 FreeStyle Zhou 3+ Sensors See Instructions, Place once sensor to the back of the upper arm every 15 days. Use reader or phone massimo for daily blood sugar checks. 1 month supply, # 2 EA, 0 Refill(s), Pharmacy: [facility]/pharmacy #[id number], 161.5, cm, 07/29/24 16:07:00 EDT, Height, 85.9, kg, 09/17/24 13:21:00 EDT, Dosing Weight Start Date: 11/08/24 Status: Ordered Medication Dispense Status: Completed Quantity: 2.0 Unit: EA Total Allowed Fills: 1 Fills Dispensed: 0 ketorolac tromethamine 10 mg oral tablet (1 [...] Date: 08/05/23 Stop Date: 08/08/23 Status: Ordered 24 hr metFORMIN hydrochloride 500 mg extended release oral tablet (7 sources) Biguanide Start: 09-06-2024 Metformin 500 mg tablet extended release 24 hr Active 2000 mg PO DAILY September 06, 2024 12:00am Start: 07-08-2024 End: 01-04-2025 MetFORMIN (Eqv-Glucophage XR ) 500 mg oral tablet, EXTENDED RELEASE Dose : 2,000 mg = 4 tab(s), Oral, qDay, # 360 tab(s), 1 Refill(s), Pharmacy: [facility]/pharmacy #[id number], Diabetes mellitus, new onset, 161.5, cm, 05/17/24 9:39:00 EST, Height, kg, 06/23/24 12:08:00 EDT, Dosing Weight Start Date: 07/08/24 Stop Date: 01/04/25 Status: Ordered Medication Dispense Status: Completed Quantity: 360.0 Unit: tab(s) Total Allowed Fills: 2 Fills Dispensed: 0 Indications: Type 2 diabetes mellitus without complications; ondansetron 4 mg disintegrating oral tablet (4 sources) Serotonin-3 Receptor Antagonist Start: 09-06-2024 take 1 tablet by mouth every six hours as needed for nausea and vomiting Ondansetron 4 mg tablet,disintegrating Active 4 mg PO EVERY 6 HOURS as needed for nausea and vomiting 20 0 September 06, 2024 12:00am Completed/Discontinued Medications Medication Drug Class(es) Dates Sig (Normalized) Sig (Original) nitrofurantoin, macrocrystals 25 mg / nitrofurantoin, monohydrate 75 mg oral capsule (5 sources) Nitrofuran Antibacterial Start: 09-14-2021 End: 09-21-2021 take 1 capsule by mouth every twelve hours at mealtime Nitrofurantoin Monohyd/M-Cryst 100 mg capsule Discontinued 1 NMA PO Q12H 14 7 0 September 14, 2021 12:00am September 20, 2021 12:00am September 21, 2021 12:03am administer with a meal/food; swallow whole; do not open, crush, dissolve , or chew NEGATED: Highlighted row has not occurred!No Current Medications (1 source) No Current Medications Problems Active Problems Problem Classification Problem Date Documented Date Episodic/Chronic Abdominal pain (2 sources) Abdominal pain; Translations: [Unspecified abdominal pain] Onset: 08-05-2023 Episodic Diabetes mellitus without complication (8 sources) Newly diagnosed diabetes; Translations: [Type 2 diabetes mellitus without complications] Onset: 09-17-2024 06-14-2024 Chronic Headache; including migraine (2 sources) Headache; Translations: [Headache] 05-02-2021 Episodic Headache; including migraine (4 sources) Headache; including migraine; Translations: [Headache, unspecified] Onset: 05-02-2021 05-02-2021 Comment on above: HIT BACK OF HEAD ON A TABLE FRIDAY, HEADACHE FOR 3 DAYS Immunizations and screening for infectious disease (5 sources) Serology positive; Translations: [Other specified abnormal immunological findings in serum] Onset: 12-06-2024 12-02-2024 Episodic Menstrual disorders (5 sources) Menstrual cramp; Translations: [Dysmenorrhea, unspecified] Onset: 09-16-2024 09-06-2024 Chronic Nutritional deficiencies (5 sources) Vitamin D deficiency; Translations: [Vitamin D deficiency, unspecified] Onset: 12-06-2024 12-02-2024 Chronic Other complications of (1 source) Obesity complicating , unspecified trimester; Translations: [Obesity complicating , unspecified trimester] Onset: 01-18-2025 Chronic Other complications of (1 source) Supervision of high risk , unspecified, unspecified trimester; Translations: [Supervision of high risk , unspecified, unspecified trimester] Onset: 01-18-2025 Episodic Other injuries and conditions due to external causes (2 sources) Closed injury of head; Translations: [Head injury, unspecified] 05-02-2021 Episodic Other nutritional; endocrine; and metabolic disorders (3 sources) Weight gain 06-14-2024 Episodic Other nutritional; endocrine; and metabolic disorders (3 sources) Abnormal weight gain; Translations: [Abnormal weight gain] Onset: 09-17-2024 Episodic Urinary tract infections (1 source) Urinary tract infection, site not specified; Translations: [Urinary tract infection, site not specified] Onset: 03-07-2022 Episodic Past or Other Problems Problem Classification Problem Date Documented Date Episodic/Chronic Contraceptive and procreative management (9 sources) Social and personal history finding; Translations: [Encounter for procreative management, unspecified] Onset: 06-12-2023 06-12-2023 Episodic E Codes: Struck by; against (1 source) Striking against or struck by other objects, initial encounter; Translations: [Striking against or struck by other objects, init encntr] Onset: 05-02-2021 Episodic Genitourinary symptoms and ill-defined conditions (5 sources) Dysuria; Translations: [Other symptoms and signs involving the genitourinary system] Onset: 03-07-2022 06-01-2024 Episodic Malaise and fatigue (1 source) Other fatigue; Translations: [Other fatigue] Onset: 05-02-2021 Episodic Other injuries and conditions due to external causes (2 sources) Unspecified injury of head, initial encounter; Translations: [Unspecified injury of head, initial encounter] Onset: 05-02-2021 Episodic Other screening for suspected conditions (not mental disorders or infectious disease) (2 sources) Abnormal findings on diagnostic imaging of skull and head, not elsewhere classified; Translations: [Encounter for screening for malignant neoplasm of cervix] Onset: 05-02-2021 Episodic Results Test Name Value Interpretation Reference Range Facility [facility] 12-16-2024 Chol Total Not performed Normal [facility] Comment on above: Result Comment: Test not performed This test was developed and its performance characteristics determined by [facility]. It has not been cleared or approved by the Food and Drug Administration. Performed By: #### G FR, ADIFF, CBC, ANEU, CMP, LIPID, [id number], TSH #### [address] [address] #### CPEP #### [address] [address] HDL-C Not performed Normal [facility] Comment on above: Result Comment: Test not performed This test was developed and its performance characteristics determined by [facility]. It has not been cleared or approved by the Food and Drug Administration. Performed By: #### G FR, ADIFF, CBC, ANEU, CMP, LIPID, [id number], TSH #### [address] [address] #### CPEP #### [address] [address] HDL-P Total Not performed Normal [facility] Comment on above: Result Comment: Test not performed This test was developed and its performance characteristics determined by [facility]. It has not been cleared or approved by the Food and Drug Administration. Performed At: [facility] [id number] Tyler William MD Ph:[phone] Performed By: #### G FR, ADIFF, CBC, ANEU, CMP, LIPID, [id number], TSH #### [address] [address] #### CPEP #### [place] [address] LDL-P Not performed Normal [facility] Comment on above: Result Comment: Test not performed. Inappropriate specimen received. The gel barrier tube used for specimen collection interferes with the NMR LipoProfile test. Contacted Michelle Sotomayor at your facility on 12/15/2024 This test was developed and its performance characteristics determined by [facility]. It has not been cleared or approved by the Food and Drug Administration. Low < 1000 Moderate 1000 - 1299 Borderline-High 1300 - 1599 High 1600 - 2000 Very High > 2000 Performed By: #### G FR, ADIFF, CBC, ANEU, CMP, LIPID, [id number], TSH #### [address] [address] #### CPEP #### [place] [address] Triglyceride [Mass/Vol] Not performed Normal [facility] Comment on above: Result Comment: Test not performed This test was developed and its performance characteristics determined by [facility]. It has not been cleared or approved by the Food and Drug Administration. Performed By: #### G FR, ADIFF, CBC, ANEU, CMP, LIPID, [id number], TSH #### [address] [address] #### CPEP #### [address] [address] DEXAon 12-14-2024 Dexamethasone Level 391 ng/dL Normal [facility] Comment on above: Result Comment: This test was developed and its performance characteristics determined by [facility]. It has not been cleared or approved by the Food and Drug Administration. Reference Range: Adults baseline: <30 8:00 AM following 1 mg dexamethasone previous evenin - 295 8:00 AM following 8 mg dexamethasone (4 x 2 mg doses) previous day: 1600 - 2850 Performed At: [facility] [address] [place] [id number] Ramesh Malagon MD Ph:[phone] Performed By: #### 5 [address]38 #### [address] [address] TFTESTon 12-14-2024 Free Testost Direct 1.0 pg/mL Normal 0.0-4.2 [facility] Comment on above: Result Comment: Perf ormed At: [address] [id number] Tyler William MD Ph:[phone] Performed At: [address] [id number] Tamiko Piedra PhD Ph:[phone] Performed By: #### G FR, ADIFF, CBC, ANEU, CMP, LIPID, [id number], TSH #### [place] [address] #### CPEP #### [place] [address] Testosterone Lvl 37 ng/dL Normal 13-71 [facility] Comment on above: Performed By: #### G FR, ADIFF, CBC, ANEU, CMP, LIPID, [id number], TSH #### [place] [address] #### CPEP #### [place] [address] ALDOSon 12-13-2024 Aldosterone. 10.7 ng/dL Normal 0.0-30.0 [facility] Comment on above: Result Comment: This test was developed and its performance characteristics determined by [facility]. It has not been cleared or approved by the Food and Drug Administration. Performed At: [address] [id number] Tyler William MD Ph:[phone] Performed By: #### G FR, ADIFF, CBC, ANEU, CMP, LIPID, [id number], TSH #### [place] [address] #### CPEP #### [address] [address] SALCTon 12-13-2024 Cortisol Saliva <0.010 Normal [facility] Comment on above: Result Comment: This test was developed and its performance characteristics determined by [facility]. It has not been cleared or approved by the Food and Drug Administration. Reference Range: Children and Adults: 8:00a.m.: 0.025 - 0.600 Noon: <0.010 - 0.330 4:00p.m.: 0.010 - 0.200 Bedtime (9:00p.m.-Midnight): <0.010 - 0.090 Performed At: [facility] [address] [place] [id number] Ramesh Malagon MD Ph:[phone] Performed By: #### G FR, ADIFF, CBC, ANEU, CMP, LIPID, [id number], TSH #### [place] [address] #### CPEP #### [place] [address] RENINon 12-11-2024 Renin Activity 2.064 ng/mL/hr Normal 0.167-5.380 [facility] Comment on above: Result Comment: This test was developed and its performance characteristics determined by [facility]. It has not been cleared or approved by the Food and Drug Administration. Performed At: [address] [id number] Tyler William MD Ph:[phone] Performed By: #### G FR, ADIFF, CBC, ANEU, CMP, LIPID, [id number], TSH #### [place] [address] #### CPEP #### [place] [address] 17OHPon 09-12-2025 17-OH Progesterone LCMS 14 ng/dL Normal [facility] Comment on above: Result Comment: Adul t Female Follicular 15 - 70 Luteal 35 - 290 This test was developed and its performance characteristics determined by [facility]. It has not been cleared or approved by the Food and Drug Administration. Performed At: [facility] [id number] Tyler William MD Ph:[phone] Performed By: #### G FR, ADIFF, CBC, ANEU, CMP, LIPID, [id number], TSH #### [place] [address] #### CPEP #### [place] [address] CORTon 12-09-2024 Cortisol Level 0.8 mcg/dL Normal [facility] Comment on above: Order Comment: to be done after she has taken dexamathasone tablet the night before along with am dexamethasone level Result Comment: Alek isol AM Reference Range 6.5-26.0 mcg/dL Cortisol PM Reference Range 3.5-15.0 mcg/dL Performed By: #### 5 [address] #### [place] [id number] LABORATORYOrdered By: SYSTEM SYSTEM on 12-09-2024 Cortisol [Mass/Vol] 0.8 ug/dL Invalid Interpretation Code ADM Comment on above: Interpretive Data: C ortisol AM Reference Range 6.5-26.0 mcg/dL Cortisol PM Reference Range 3.5-15.0 mcg/dL [id number] 12-08-2024 ACTH 8.1 pg/mL Normal 7.2-63.3 [facility] Comment on above: Result Comment: ACTH reference interval for samples collected between 7 and 10 AM. Performed At: [facility] [id number] Tamiko Piedra PhD Ph:[phone] Performed By: #### G FR, ADIFF, CBC, ANEU, CMP, LIPID, [id number], TSH #### [place] [id number] #### CPEP #### [address] [address] ANAIFSon 12-08-2024 Antinuclear Ab Screen Negative Normal Negative [facility] Comment on above: Result Comment: Anti -nuclear antibody test is used as an aid in diagnosis of systemic autoimmune diseases. Where positive and clinically warranted, follow-up using disease-specific testing is recommended. Low positive titers are not uncommon with advanced age, certain chronic infections, and malignancies among others. Test methodology: Indirect fluorescence immunoassay (IFA) using HEp-2 cells. Performed By: [facility] [address] [place] [address] Janitorial Maintenance Worker: Juanito Ryan III, M.D. CLIA#: [id number] Performed By: #### G FR, ADIFF, CBC, ANEU, CMP, LIPID, [id number], TSH #### [place] [address] #### CPEP #### [place] [address] RFon 12-08-2024 Rheumatoid Factor (RF) <10.0 Normal <14.0 [facility] Comment on above: Result Comment: Perf ormed At: [facility] [address] [id number] Tamiko Piedra PhD Ph:[phone] Performed By: #### G FR, ADIFF, CBC, ANEU, CMP, LIPID, [id number], TSH #### [place] [id number] #### CPEP #### [place] [address] .Auto Diffon 12-07-2024 Basophil, Absolute 0.0 10 3/mcL Normal 0.0-0.3 [facility] Comment on above: Performed By: #### 5 [address] #### [address] [address] Basophils/100 WBC (Bld) 0.4 % Normal 0.0-2.5 [facility] Comment on above: Performed By: #### 5 64720 #### [address] [address] Eosinophil, Absolute 0.1 10 3/mcL Normal 0.0-0.7 [facility] Comment on above: Performed By: #### 5 44979 #### [address] [address] Eosinophils/100 WBC (Bld) 1.1 % Normal 0.0-6.0 [facility] Comment on above: Performed By: #### 5 23951 #### [address] [address] Lymphocyte, Absolute 2.6 10 3/mcL Normal 0.9-4.3 [facility] Comment on above: Performed By: #### 5 [address]6429 #### [address] [address] Lymphocytes/100 WBC (Bld) 25.5 % Normal 20.0-40.0 [facility] Comment on above: Performed By: #### 5 35734 #### [address] [address] Monocyte, Absolute 0.4 10 3/mcL Normal 0.1-1.4 [facility] Comment on above: Performed By: #### 5 40620 #### [address] [address] Monocytes/100 WBC (Bld) 3.7 % Normal 2.0-13.0 [facility] Comment on above: Performed By: #### 5 [address]3008 #### [address] [address] Neutrophils/100 WBC (Bld) 69.3 % Normal 50.0-75.0 [facility] Comment on above: Performed By: #### 5 57317 #### [address] [address] .GFRon 12-07-2024 GFR/1.73 sq M.predicted among non-blacks MDRD (S/P/Bld) [Vol rate/Area] mL/min/{1.73_m2} Normal [facility] Comment on above: Result Comment: Stages of [...] calculate the eGFR results. Performed By: #### 5 95818 #### [address] [address] .NEUABSon 12-07-2024 Neutrophil, Absolute 7.1 10 3/mcL Normal 2.3-8.1 [facility] Comment on above: Performed By: #### 5 [address]1975 #### [place] [id number] B12on 12-07-2024 Cobalamin (Vitamin B12) [Mass/Vol] 965 pg/mL High 211-911 [facility] Comment on above: Performed By: #### G FR, ADIFF, CBC, ANEU, CMP, LIPID, [id number], TSH #### [place] [address] #### CPEP #### [facility] [address] [place] [address] CBCon 12-07-2024 Erythrocyte distribution width (RBC) [Ratio] 13.5 % Normal 11.5-15.5 [facility] Comment on above: Performed By: #### 5 44478 #### [place] [id number] Hematocrit (Bld) [Volume fraction] 42.3 % Normal 34.0-46.0 [facility] Comment on above: Performed By: #### 5 27014 #### [place] [id number] Hgb 14.7 G/dL Normal 12.0-16.0 [facility] Comment on above: Performed By: #### 5 38872 #### [address] [address] MCH (RBC) [Entitic mass] 27.9 pg Normal 27.0-33.0 [facility] Comment on above: Performed By: #### 5 80054 #### [address] [address] MCHC 34.8 G/dL Normal 32.0-36.0 [facility] Comment on above: Performed By: #### 5 [address]6433 #### [address] [address] MCV (RBC) [Entitic vol] 80.2 fL Normal 80.0-99.0 [facility] Comment on above: Performed By: #### 5 51265 #### [address] [address] Platelet 378 10 3/mcL Normal 150-450 [facility] Comment on above: Performed By: #### 5 00338 #### [address] [address] Platelet mean volume (Bld) [Entitic vol] 8.9 fL Normal 6.6-10.5 [facility] Comment on above: Performed By: #### 5 02240 #### [address] [address] RBC 5.28 10 6/mcL Normal 4.10-5.30 [facility] Comment on above: Performed By: #### 5 668[address] #### [address] [address] WBC 10.2 10 3/mcL Normal 4.5-10.8 [facility] Comment on above: Performed By: #### 5 98345 #### [address] [address] CMPon 12-07-2024 Albumin Level 4.5 G/dL Normal 3.5-5.0 [facility] Comment on above: Performed By: #### 5 38066 #### [address] [address] Albumin/Globulin [Mass ratio] 1.3 {ratio} Normal 1.1-2.5 [facility] Comment on above: Performed By: #### 5 16893 #### [address] [address] ALP [Catalytic activity/Vol] 114 U/L Normal 40-135 [facility] Comment on above: Performed By: #### 5 [address]2837 #### [address] [address] ALT [Catalytic activity/Vol] 22 U/L Normal 14-59 [facility] Comment on above: Performed By: #### 5 23485 #### [address] [address] AST [Catalytic activity/Vol] 12 U/L Normal 10-40 [facility] Comment on above: Performed By: #### 5 16762 #### [address] [address] Bili Total 0.4 mg/dL Normal 0.2-1.0 [facility] Comment on above: Result Comment: Use of this assay is not recommended for patients undergoing treatment with eltrombopag due to the potential for falsely elevated results. Performed By: #### 5 87788 #### [address] [address] BUN/Creatinine Ratio 21 ratio Normal 7-27 [facility] Comment on above: Performed By: #### 5 [address] #### [address] [address] Calcium [Mass/Vol] 9.4 mg/dL Normal 8.4-10.2 [facility] Comment on above: Performed By: #### 5 [id number] #### [address] [address] Chloride [Moles/Vol] 101 mmol/L Normal 98-107 [facility] Comment on above: Performed By: #### 5 72427 #### [address] [address] CO2 [Moles/Vol] 29 mmol/L Normal 22-29 [facility] Comment on above: Performed By: #### 5 [id number] #### [address] [address] Creatinine [Mass/Vol] 0.63 mg/dL Normal 0.51-0.95 [facility] Comment on above: Performed By: #### 5 [id number] #### [address] [address] Electrolyte Balance 10.0 mEq/L Normal 4.0-15.0 [facility] Comment on above: Performed By: #### 5 25987 #### [address] [address] Globulin 3.5 G/dL Normal 2.7-4.4 [facility] Comment on above: Performed By: #### 5 78616 #### [place] [address] Glucose [Mass/Vol] 216 mg/dL High 70-105 [facility] Comment on above: Performed By: #### 5 28039 #### [address] [address] Potassium [Moles/Vol] 4.4 mmol/L Normal 3.5-5.1 [facility] Comment on above: Performed By: #### 5 22878 #### [address] [address] Sodium [Moles/Vol] 140 mmol/L Normal 136-145 [facility] Comment on above: Performed By: #### 5 [id number] #### [address] [address] Total Protein 8.0 G/dL Normal 6.4-8.2 [facility] Comment on above: Performed By: #### 5 35166 #### [address] [address] Urea nitrogen [Mass/Vol] 13 mg/dL Normal 7-18 [facility] Comment on above: Performed By: #### 5 30701 #### [address] [address] CORTon 12-07-2024 Cortisol Level 11.5 mcg/dL Normal [facility] Comment on above: Result Comment: Alek isol AM Reference Range 6.5-26.0 mcg/dL Cortisol PM Reference Range 3.5-15.0 mcg/dL Performed By: #### G FR, ADIFF, CBC, ANEU, CMP, LIPID, [id number], TSH #### [address] [address] #### CPEP #### [place] [address] CRPon 12-07-2024 C-Reactive Protein 0.4 mg/dL High 0.0-0.3 [facility] Comment on above: Performed By: #### G FR, ADIFF, CBC, ANEU, CMP, LIPID, [id number], TSH #### [place] [address] #### CPEP #### [place] [address] DHEASon 12-07-2024 DHEA-SO4 358.74 mcg/dL Normal 25.90-460.20 [facility] Comment on above: Result Comment: No te - New Reference Range in effect 19 Performed By: #### G FR, ADIFF, CBC, ANEU, CMP, LIPID, [id number], TSH #### [place] [address] #### CPEP #### [place] [address] FEon 12-07-2024 Iron [Mass/Vol] 47 ug/dL Low 50-170 [facility] Comment on above: Performed By: #### G FR, ADIFF, CBC, ANEU, CMP, LIPID, [id number], TSH #### [place] [address] #### CPEP #### [place] [address] Saranya 12-07-2024 Ferritin [Mass/Vol] 63.0 ng/mL Normal 8.0-252.0 [facility] Comment on above: Performed By: #### 5 [id number] #### [place] [address] [place], [place] [address] FT4on 12-07-2024 Free T4 [Mass/Vol] 1.57 ng/dL High 0.76-1.46 [facility] Comment on above: Performed By: #### 5 86485 #### [place] [address] LABORATORYOrdered By: SYSTEM SYSTEM on 12-07-2024 25-hydroxyvitamin D3 [Mass/Vol] 31.9 ng/mL Invalid Interpretation Code AO ADM SS Comment on above: Interpretive Data: I nterpretive Values Based on Total 25(OH) Vitamin D: Deficient <20 ng/mL Insufficient 20 - <30 ng/mL Sufficient 30-100 ng/mL Albumin BCP dye [Mass/Vol] 4.5 G/dL Normal 3.5 - 5.0 G/dL AO ADM SS Albumin/Globulin [Mass ratio] 1.3 {ratio} Normal 1.1 - 2.5 ratio AO ADM SS ALP [Catalytic activity/Vol] 114 U/L Normal 40 - 135 U/L AO ADM SS ALT With P-5'-P [Catalytic activity/Vol] 22 U/L Normal 14 - 59 U/L AO ADM SS AST With P-5'-P [Catalytic activity/Vol] 12 U/L Normal 10 - 40 U/L AO ADM SS Basophils (Bld) [#/Vol] 0.0 103/mcL Normal 0.0 - 0.3 10^3/mcL AO Workflow SS Basophils/100 WBC (Bld) 0.4 % Normal 0.0 - 2.5 % AO Workflow SS Bilirubin [Mass/Vol] 0.4 mg/dL Normal 0.2 - 1 .0 mg/dL AO ADM SS Comment on above: Interpretive Data: U se of this assay is not recommended for patients undergoing treatment with eltrombopag due to the potential for falsely elevated results. Calcium [Mass/Vol] 9.4 mg/dL Normal 8.4 - 10. 2 mg/dL AO ADM SS Chloride [Moles/Vol] 101 mmol/L Normal 98 - 10 7 mmol/L AO ADM SS CO2 [Moles/Vol] 29 mmol/L Normal 22 - 29 mmol/L AO ADM SS Cobalamin (Vitamin B12) [Mass/Vol] 965 pg/mL High 211 - 911 pg/mL AH ADM SS Cortisol [Mass/Vol] 11.5 ug/dL Invalid Interpretation Code AH ADM SS Comment on above: Interpretive Data: C ortisol AM Reference Range 6.5-26.0 mcg/dL Cortisol PM Reference Range 3.5-15.0 mcg/dL Creatinine [Mass/Vol] 0.63 mg/dL Normal 0.51 - 0.95 mg/dL AO ADM SS CRP [Mass/Vol] 0.4 mg/dL High 0.0 - 0.3 mg/dL AO ADM SS DHEA-S [Mass/Vol] 358.74 ug/dL Normal 25.90 - 460.20 mcg/dL AH ADM SS Comment on above: Interpretive Data: * *Note - New Reference Range in effect 19 Electrolyte Balance 10.0 mEq/L Normal 4.0 - 15 .0 mEq/L AO ADM SS Eosinophil, Absolute 0.1 103/mcL Normal 0.0 - 0 .7 10^3/mcL AO Workflow SS Eosinophils/100 WBC (Bld) 1.1 % Normal 0.0 - 6.0 % AO Workflow SS Erythrocyte distribution width (RBC) [Ratio] 13.5 % Normal 11.5 - 15.5 % AO Workflow SS Estimated Glomerular Filtration Rate ml/min/1.73sqm Invalid Interpretation Code AO Chemistry S Comment on above: Interpretive Data: Stages of Chronic Kidney Disease (CKD) Stage [...] race factor to calculate the eGFR results. Ferritin [Mass/Vol] 63.0 ng/mL Normal 8.0 - 25 2.0 ng/mL AO ADM SS Free T4 [Mass/Vol] 1.57 ng/dL High 0.76 - 1. 46 ng/dL AO ADM SS Globulin 3.5 G/dL Normal 2.7 - 4.4 G/dL AO ADM SS Glucose [Mass/Vol] 216 mg/dL High 70 - 105 mg/dL AO ADM SS Hematocrit (Bld) [Volume fraction] 42.3 % Normal 34.0 - 46.0 % AO Workflow SS Hemoglobin (Bld) [Mass/Vol] 14.7 G/dL Normal 12.0 - 16.0 G/dL AO Workflow SS Iron [Mass/Vol] 47 ug/dL Low 50 - 170 mcg/dL AO ADM SS Lymphocytes (Bld) [#/Vol] 2.6 103/mcL Normal 0.9 - 4.3 10^3/mcL AO Workflow SS Lymphocytes/100 WBC (Bld) 25.5 % Normal 20.0 - 40.0 % AO Workflow SS MCH (RBC) [Entitic mass] 27.9 pg Normal 27.0 - 33.0 pg AO Workflow SS MCHC 34.8 G/dL Normal 32.0 - 36.0 G/dL AO Workflow SS MCV (RBC) [Entitic vol] 80.2 fL Normal 80.0 - 99.0 fL AO Workflow SS Monocytes (Bld) [#/Vol] 0.4 103/mcL Normal 0.1 - 1.4 10^3/mcL AO Workflow SS Monocytes/100 WBC (Bld) 3.7 % Normal 2.0 - 13.0 % AO Workflow SS Neutrophils (Bld) [#/Vol] 7.1 103/mcL Normal 2.3 - 8.1 10^3/mcL AO Workflow SS Neutrophils/100 WBC (Bld) 69.3 % Normal 50.0 - 75.0 % AO Workflow SS Platelet mean volume (Bld) [Entitic vol] 8.9 fL Normal 6.6 - 10.5 fL AO Workflow SS Platelets (Bld) [#/Vol] 378 103/mcL Normal 150 - 450 10^3/mcL AO Workflow SS Potassium [Moles/Vol] 4.4 mmol/L Normal 3.5 - 5.1 mmol/L AO ADM SS Protein [Mass/Vol] 8.0 G/dL Normal 6.4 - 8.2 G/dL AO ADM SS RBC (Bld) [#/Vol] 5.28 106/mcL Normal 4.10 - 5.3 0 10^6/mcL AO Workflow SS Sodium [Moles/Vol] 140 mmol/L Normal 136 - 145 mmol/L AO ADM SS TPO Ab IA Qn 38 unit/mL Normal 0 - 60 unit/mL AH ADM SS TSH Qn 1.73 m[IU]/L Normal 0.36 - 3.74 mcIU/mL AO ADM SS Urea nitrogen [Mass/Vol] 13 mg/dL Normal 7 - 18 mg/dL AO ADM SS Urea nitrogen/Creatinine [Mass ratio] 21 ratio Normal 7 - 27 ratio AO ADM SS WBC (Bld) [#/Vol] 10.2 103/mcL Normal 4.5 - 10.8 10^3/mcL AO Workflow SS TSHon 12-07-2024 TSH Qn 1.73 m[IU]/L Normal 0.36-3.74 [facility] Comment on above: Performed By: #### 5 [id number] #### [address] [address] VIDHon 12-07-2024 Vit. D 25-Hydroxy 31.9 ng/mL Normal [facility] Comment on above: Result Comment: Inte rpretive Values Based on Total 25(OH) Vitamin D: Deficient <20 ng/mL Insufficient 20 - <30 ng/mL Sufficient 30-100 ng/mL Performed By: #### G FR, ADIFF, CBC, ANEU, CMP, LIPID, [id number], TSH #### [address] [address] #### CPEP #### [place] [address] aTPOon 12-07-2024 anti-Thyroid Peroxidase 38 units/ml Normal 0-60 [facility] Comment on above: Performed By: #### G FR, ADIFF, CBC, ANEU, CMP, LIPID, [id number], TSH #### [place] [address] #### CPEP #### [place] [address] PAP I-G w/rfx hrHPV-Aptimaon 09-24-2024 ADEQ Comment Normal . [facility] Comment on above: Order Comment: Speci men Comment: [id number] Specimen Comment: No. of containers..01 ThinPrep Vial Result Comment: Sati sfactory for evaluation. No endocervical component is identified. Performed By: #### L 7400.0353 #### [facility] [address] [place], [address] COMM . Normal . [facility] Comment on above: Order Comment: Speci men Comment: [id number] Specimen Comment: No. of containers..01 ThinPrep Vial Performed By: #### L 7400.0353 #### [facility] [address] [place], [address] COMMENT Comment Normal . [facility] Comment on above: Order Comment: Speci men Comment: [id number] Specimen Comment: No. of containers..01 ThinPrep Vial Result Comment: This liquid based ThinPrep(R) pap test was screened with the use of an image guided system. Performed By: #### L 7400.0353 #### [facility] [address] [place], [address] DIAG Comment Normal . [facility] Comment on above: Order Comment: Speci men Comment: [id number] Specimen Comment: No. of containers..01 ThinPrep Vial Result Comment: NEGA TIVE FOR INTRAEPITHELIAL LESION OR MALIGNANCY. Performed By: #### L 7400.0353 #### [facility] [address] [place], [address] HPV RFLX Comment Normal . [facility] Comment on above: Order Comment: Speci men Comment: [id number] Specimen Comment: No. of containers..01 ThinPrep Vial Result Comment: The HPV DNA reflex criteria were not met with this specimen result therefore, no HPV testing was performed. Performed at: [facility] [employer] [id number] [place] [id number] Janitorial Maintenance Worker: Cam Pan MD, Phone: [phone] Performed at: [address], [place] [id number] Janitorial Maintenance Worker: Valerie Ernst MD, Phone: [phone] Performed By: #### L 7400.0353 #### [facility] [address] [place], [place], [address] PAPSMR Comment Normal . [facility] Comment on above: Order Comment: Speci men Comment: [id number] Specimen Comment: No. of containers..01 ThinPrep Vial Result Comment: The Pap smear is a screening test designed to aid in the detection of premalignant and malignant conditions of the uterine cervix. It is not a diagnostic procedure and should not be used as the sole means of detecting cervical cancer. Both false-positive and false-negative reports do occur. Performed By: #### L 7400.0353 #### [facility] [address] [place], [place], [address] PERFORM Comment Normal . [facility] Comment on above: Order Comment: Speci men Comment: [id number] Specimen Comment: No. of containers..01 ThinPrep Vial Result Comment: Nevaeh Hernandez, Draw In Hand (ASCP) Performed By: #### L 7400.0353 #### [facility] [address] [place], [place], [address] Pelvic w/ Transvaginalon Pelvic w/ Transvaginal [facility] [address] [place], [place] [address] Pelvic w/ Transvaginal MR#: [id number] Acct: [id number] Name: JORDANA MEDEROS Rep #: [id number] : 2005 F 19 From: Neto boss MD PCP: AGUILAR Simons Status: REG CLI Study: Pelvic w/ Transvaginal Date of Exam: 09/23/24 Exam# [id number] Ordering Dr: Griselda Lora MELT DOWN FURNACE OPERATOR-C PROCEDURE: PELVIC W/ TRANSVAGINAL REASON FOR EXAM: INFERTILITY X 1 YEAR TECHNIQUE: PELVIC W/ TRANSVAGINAL COMPARISON: None FINDINGS: LMP: September 03, 2024 Measurements: Uterus: 7.5 cm x 4.1 cm x 2.9 cm with a volume of 47.37 mL Endometrial Thickness: 8 mm. It is trilaminar in appearance. Right Ovary: 1.8 cm x 2.5 cm x 2.7 cm with a volume of 6.31 mL. Left Ovary: 1.6 cm x 1.8 cm x 2.6 cm with a volume of 3.75 mL. TRANSABDOMINAL: Uterus: Normal size, myometrial echotexture, and contour. Endometrium: Unremarkable. Right ovary: Normal size and echotexture. Left ovary: Normal size and echotexture. Other: No large pelvic mass identified. Transvaginal sonography was performed to better visualize the endometrium. TRANSVAGINAL: Uterus: Anteverted. Normal contour and myometrial echotexture. Endometrium: Normal echotexture. Right ovary: Normal size and echotexture. Left ovary: Normal size and echotexture. Other adnexal findings: None. Cul-de-sac: No free intraperitoneal fluid identified. Tenderness: No tenderness US/Pelvic w/ Transvaginal IMPRESSION: NORMAL TRANSABDOMINAL AND TRANSVAGINAL PELVIC ULTRASOUND. Reading Location: [id number] CC: AGUILAR Lora; AGUILAR [employer]: Signed Normal [facility] Cervical or vagninal specime n microscopic examination by cytology stain (reported asOrdered By: Grisleda Lora on 09-20-2024 Cytology report Cyto stain Doc (Cvx/Vag) Comment . [facility] Comment on above: The Pap smear is a s creening test designed to aid in thedetection of premalignant and malignant conditions of theuterine cervix. It is not a diagnostic procedure andshould not be used as the sole means of detecting cervicalcancer. Both false-positive and false-negative reports dooccur. Laboratory - CytologyOrdered By: Griselda Lora on 09-20-2024 Draw In Hand Cyto stain Nom (Cvx/Vag) [ID] Comment . [facility] Comment on above: Nevaeh Hernandez Cyto logist (ASCP) Laboratory - Miscellaneous t estsOrdered By: Griselda Lora on 09-20-2024 Service comment (Unsp spec) [Interp] . . [facility] No Panel InformationOrdered By: Griselda Lora on 09-20-2024 Pap Smear Specimen Adequacy Comment . [facility] Comment on above: Satisfactory for oracio luation. No endocervical component is identified. 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 Required: No Is patient in pain?: No Allergies No Known Allergies Allergy (Verified 09/20/24 08:12) Medications ???Medication ???Instructions ???Recorded ???Confirmed ???Type metformin 500 mg tablet,extended 2,000 mg PO DAILY 09/06/24 5 History release 24 hr ondansetron 4 mg disintegrating 4 mg PO Q6H PRN nausea and 5 09/20/24 Rx tablet vomiting #20 tabs Is last menstrual period known: Yes Last Menstrual Period: 09/03/24 Post menopausal: No Patient : No : No Do you think of yourself as: straight/heterosexual Current gender identity: female Control Method: none PFSH Medical History Diabetes Family History Mother Diabetes Grandmother Myocardial infarction Social History adopted: No household members: significant other housing: house number of children: 0 current occupational status: employed current occupation: [employer] pets and animals: Yes pets and animals: dog(s) and other details: goats history of recent travel: No sexually active: Yes Smoking Status: Never smoker second hand exposure: Yes alcohol intake: never substance use type: does not use well-balanced diet: daily or most days caffeine: No eating out: 1-3 times/week during the past year weight has: increased > 10 lbs what type of physical activity do you participate in: none jun/confucianism: None seatbelt use: always do you feel safe at home: Yes additional social history: living with alexia Morrow History 0 Elective abortions Hx Para Spontaneous abortions Hx # Term Pregnancies Ectopic pregnancies Hx # Pregnancies Multiple births # of living children HPI Encounter for routine gynecological examination Details: JORDANA MEDEROS is a 19 year old who presents for annual exam. She reports no current issues or concerns however has struggled with infertility for the past year. They will be getting in July however she is interested in baseline work up. Alexia has had semen analysis that patient reports as normal. Recently diagnosed with diabetes. She and her alexia do not use protection. Reports no concerns for STDs. Recent ER visit; painful period- test negative. Given Toradol and sent home. Last PAP: none History of abnormal PAP: none Last mammogram: none History of abnormal mammogram: NA Colon cancer screening: None Other preventative health care screenings: Primary Care Doctor: Jessy Richards-Natasha. Female Reproductive History Last Menstrual Period: 09/03/24 Cycle Length: 21-35 Bleeding Duration: 5 Questions: metorrhagia: No, sexually active: Yes, dyspareunia: No and PCB: No ROS Const Constitutional: Denies chills, fatigue, fever(s), headache(s) or weight loss Eyes Eyes: Denies change in vision ENT ENT: Denies dizziness Resp Resp: Denies cough GI GI: Denies abdominal pain, constipation or nausea : Denies difficulty voiding, dysuria, hematuria, nipple discharge, pelvic pain, prolapse symptoms, urinary incontinence, vaginal discharge, vaginal dryness, vaginal odor or vaginal pruritus Skin Skin/Breast: Denies alopecia, rash, breast mass, breast pain, breast skin changes or nipple discharge Neuro Neuro: Denies dizziness Psych Psych: Denies anxiety or depression Endo Endo: Denies cold intolerance, excessive sweating or heat intolerance Exam Const General: cooperative, healthy appearing, comfortable, no acute distress, well groomed and well hydrated Nutritional Appearance: well nourished Orientation: alert, awake and oriented x3 HENMT Head: normal to inspection and normocephalic Ears: hearing grossly normal bilaterally and external ears normal Nose: external nose normal Face and sinus: normal facial exam Eyes General: appearance normal, both eyes and all related structures Neck Neck: normal visual inspection, full ROM and no lymphadenopathy Thyroid: thyroid normal Chest Chest palpation inspection: normal inspection of the chest Breast inspection: normal inspection of the breasts and normal inspection of the axillae Breast palpation: (more content not included)... Normal [facility] Urine Cultureon 09-07-2024 URC Below infection level. Mixed Gram Pos Gram Neg Org Harvey Count <1000 MIXC Mixed contaminants. Submit a new specimen if indicated. Normal [facility] Comment on above: Performed By: #### L 400.7600, M100.2200, L400.0001 #### [facility] [address] [place], [place], [address] Bedside Glucoseon 09-06-2024 FINGERSTICK GLU 127 mg/dL High 74-106 [facility] Comment on above: Result Comment: JULIANNA GEMENT OF PATIENT CARE PER NURSING PROTOCOL Performed By: #### L 501.080 #### [facility] [address] [place], [address] Bilirubin Test strip Ql (U)O rdered By: Alfredo Early on 09-06-2024 Bilirubin Ql (U) Negative Negative [facility] Emergency Department Summary on 09-06-2024 Emergency Department Summary [facility] Medical Records Department [address] [place] [address] Emergency Department Summary 09/06/24 MR#: [id number] Acct: [id number] Name: JORDANA MEDEROS Rep #: [id number] : 2005 19 From: Alfredo Early DO PCP: AGUILAR Simons Status:REG ER Location: ED HPI History of Present Illness Chief Complaint: Abd Pain Narrative Narrative: Patient is a 19-year-old female with past medical history of recent diagnosis of diabetes on metformin who presents to the emergency department the chief complaint of menstrual cramps. Patient states that in the middle the night she woke up and noted that she started menstrual cycle was having significant pain she tried ibuprofen around midnight and then she tried Midol around 3 AM without any relief therefore she came here for further evaluation management. She states that she is unsure if this is related to her diabetes or not. Patient denies any possibility of [facility] Medical History Diabetes Home Medications ???Medication ???Instructions ???Recorded ???Last Taken ???Type metformin 500 mg tablet,extended 2,000 mg PO DAILY 09/06/24 Unknown History release 24 hr ondansetron 4 mg disintegrating 4 mg PO Q6H PRN nausea and 5 Unknown Rx tablet vomiting #20 tabs Allergy/AdvReac Type Severity Reaction Status Date / Time No Known Allergies Allergy Verified 09/06/24 05:25 Social History Smoking Status: Never smoker ROS ROS ED ROS Narrative Constitutional: Denies fevers, chills, headaches Abdomen: Complains of abdominal pain as noted above denies nausea vomit diarrhea : Denies any painful urination, hematuria, polyuria Neurological: Denies any numbness, wheeze, tingling Musculoskeletal: Denies back pain Skin: Denies rashes or lesions EXAM Physical Exam Narrative Exam Narrative: General: Patient lying in bed rest comfortably did not appear to be acute distress Head: Atraumatic, normocephalic Eyes: PERRL bilaterally, EOMI bilaterally, no conjunctival injection noted Neck: Soft, supple, trachea midline Cardiovascular: Regular rate and rhythm Abdomen: Soft, nondistended, mild tenderness to palpation over the suprapubic region in the right lower and left lower quadrants no rebound or guarding on exam Extremities: +5/5 strength noted in the bilateral upper and lower extremities Neurological: Patient follow commands that she was at [facility] the year is 2024 Skin: Warm, dry, intact no rashes or lesions noted Const Vital Signs: 09/06/24 05:24 Temperature 98.4 F Temperature Source Oral Pulse Rate 98 Respiratory Rate 16 Blood Pressure 153/93 H Blood Pressure Mean 113 Pulse Ox 100 Oxygen Delivery Method Room Air MDM MDM MDM Narrative Medical decision making narrative: Patient is a 19-year-old female who presents to the emergency department with a chief complaint of period cramps. On the differential diagnose includes but not limited to menstrual cycle, ruptured cyst, UTI, , ectopic . Once workup is obtained reviewed she will be reevaluated. Patient be given IV fluids and Toradol. On reevaluation the patient she is feeling much improved she would like to go home at this point time. Patient was advised to rotate Tylenol and ibuprofen [id number] for pain control. She was encouraged to use Zofran sent to her pharmacy as needed for nausea. She was encouraged to follow-up with her doctor and return with any other concerns. She is agreeable this plan as well as significant other bedside all question concerns answered she was discharged home in stable condition Lab Data Labs: Laboratory Results - last 24 hr 09/06/24 09/06/24 05:50 05:57 Urine Color Yellow Urine Clarity Clear Urine pH 6.5 Ur Specific [place] 1.010 Urine Protein 15 H Urine Glucose (UA) Normal Urine Ketones Negative Urine Occult Blood 250 H Urine Nitrite Negative Urine Bilirubin Negative Urine Urobilinogen Normal Ur Leukocyte Esterase Negative Urine RBC 0 SEEN Urine WBC 0 SEEN Ur Squamous Epith Cells 0-5 SEEN Urine Bacteria 0 SEEN Urine Mucus 0 SEEN Urine Test Negative POC Glucose 127 H Discharge Plan Triage Chief Complaint: Abd Pain ED Provider: Alfredo Early Dx/Rx/DC Orders Clinical Impression: Menstrual cramp Prescriptions: New ondansetron 4 mg tablet,disintegrating 4 mg PO Q6H PRN (Reason: nausea and vomiting) Qty: 20 0RF No Action metformin 500 mg tablet extended release 24 hr 2,000 mg PO DAILY Primary Care Provider: Jessy Logan NP Referrals: Jessy Logan NP, MELT DOWN FURNACE OPERATOR-C [Primary Care Provider] - Activity R (more content not included)... Normal [facility] [facility] Glucose measurement at [facility] deOrdered By: Alfredo Early on 09-06-2024 Glucose [Mass/Vol] 127 mg/dL High 74-106 [facility] Comment on above: MANAGEMENT OF PATIEN T CARE PER NURSING PROTOCOL Ketones Test strip Ql (U)Ord ered By: Alfredo Early on 09-06-2024 Ketones Ql (U) Negative Negative [facility] Microscopic analysis of urin e for red blood cells (RBC)Ordered By: Alfredo Early on 09-06-2024 Microscopic analysis of urine for red blood cells (RBC) 0 SEEN /hpf 0-5 [facility] Mucus LM Ql (Urine sed)Order ed By: Alfredo Early on 09-06-2024 Mucus Ql (Urine sed) 0 SEEN /hpf [facility] Nitrite Test strip Ql (U)Ord ered By: Alfredo Early on 09-06-2024 Nitrite Ql (U) Negative Negative [facility] ,Urineon 09-06-2024 Beta HCG ( test) Ql (U) Negative Normal [facility] Comment on above: Result Comment: Very dilute urine specimens, as indicated by a low specific gravity, may not contain medical detail representative levels of hCG. If is still suspected, a first morning urine specimen should be collected 48 hours later and tested. Performed By: #### L 400.7600, M100.2200, L400.0001 #### [facility] [address] [place], [address] Protein Test strip Ql (U)Ord ered By: Alfredo Early on 09-06-2024 Protein Ql (U) 15 mg/dl High Negative [facility] Squamous epithelial cells de tection in urine sediment by light microscopyOrdered By: Alfredo Early on 09-06-2024 Epithelial cells.squamous LM Ql (Urine sed) 0-5 SEEN /hpf 5-10 [facility] Urinalysis, Completeon 09-06 EPI,SQUAMOUS 0-5 SEEN Normal 5-10 [facility] Comment on above: Order Comment: CLEAN CATCH Performed By: #### L 400.7600, M100.2200, L400.0001 #### [facility] [address] [place], [address] BACTERIA 0 SEEN Normal None Seen [facility] Comment on above: Order Comment: CLEAN CATCH Performed By: #### L 400.7600, M100.2200, L400.0001 #### [facility] [address] [place], [address] Mucus Ql (Urine sed) 0 SEEN Normal [facility] Comment on above: Order Comment: CLEAN CATCH Performed By: #### L 400.7600, M100.2200, L400.0001 #### [facility] [address] [place], [address] RBC 0 SEEN Normal 0-5 [facility] Comment on above: Order Comment: CLEAN CATCH Performed By: #### L 400.7600, M100.2200, L400.0001 #### [facility] [address] [place], [address] WBC 0 SEEN Normal 0-5 [facility] Comment on above: Order Comment: CLEAN CATCH Performed By: #### L 400.7600, M100.2200, L400.0001 #### [facility] [address] [place], [address] Urine clarityOrdered By: Rashaun Early on 09-06-2024 Clarity (U) Clear Clear [facility] Urine color determinationOrd ered By: Alfredo Early on 09-06-2024 Color (U) Yellow Yellow [facility] Urine cultureOrdered By: Rashaun Early on 09-06-2024 Bacteria identified Cx Nom (U) Mixed Gram Pos & Gram Neg Org Abnormal [facility] Urine glucose detectionOrder ed By: Alfredo Early on 09-06-2024 Glucose Ql (U) Normal mg/dl Normal [facility] Urine leukocyte esterase det ection by dipstickOrdered By: Alfredo Early on 09-06-2024 Leukocyte esterase Test strip Ql (U) Negative Negative [facility] Urine pHOrdered By: Alfredo guevara on 09-06-2024 pH (U) 6.5 [pH] 5.0 - 8.0 [facility] Urine testOrdered By: Alfredo Early on 09-06-2024 HCG ( test) Ql (U) Negative [facility] Comment on above: Very dilute urine sp ecimens, as indicated by a low specificgravity, may not contain medical detail representative levels of hCG. If is still suspected, a first morning urinespecimen should be collected 48 hours later and tested. Urine sediment bacteria coun t by microscopy (number/high power field)Ordered By: Alfredo Early on 09-06-2024 Bacteria LM.HPF (Urine sed) [#/Area] 0 /[HPF] None Seen [facility] Urine specific gravity measu rementOrdered By: Alfredo Early on 09-06-2024 Specific gravity (U) [Rel density] 1.010 1.002-1.030 [facility] Urine urobilinogen measureme ntOrdered By: Alfredo Early on 09-06-2024 Urobilinogen Ql (U) Normal mg/dl Normal [facility] White blood cell countOrdere d By: Alfredo Early on 09-06-2024 White blood cell count 0 SEEN /hpf 0-5 [facility] [id number] 06-28-2024 SUSANA-65 1076.1 units/ml High 0.0-5.0 [facility] Comment on above: Order Comment: +/- 2 8 days from order time Result Comment: Perf ormed At: [facility] [address] [id number] Tyler William MD Ph:[phone] Performed By: #### 5 [address] #### [address] [address] .Auto Diffon 06-23-2024 Basophil, Absolute 0.0 10 3/mcL Normal 0.0-0.2 [facility] Comment on above: Performed By: #### G FR, ADIFF, CBC, ANEU, CMP, LIPID, [id number], TSH #### [address] [address] #### CPEP #### [facility] [address] [place] [address] Basophils/100 WBC (Bld) 0.3 % Normal 0.0-2.5 [facility] Comment on above: Performed By: #### G FR, ADIFF, CBC, ANEU, CMP, LIPID, [id number], TSH #### [address] [address] #### CPEP #### [address] [address] Eosinophil, Absolute 0.1 10 3/mcL Normal 0.0-0.7 [facility] Comment on above: Performed By: #### G FR, ADIFF, CBC, ANEU, CMP, LIPID, [id number], TSH #### [place] [address] #### CPEP #### [address] [address] Eosinophils/100 WBC (Bld) 0.8 % Normal 0.0-7.0 [facility] Comment on above: Performed By: #### G FR, ADIFF, CBC, ANEU, CMP, LIPID, [id number], TSH #### [place] [address] #### CPEP #### [address] [address] Lymphocyte, Absolute 2.4 10 3/mcL Normal 0.9-4.3 [facility] Comment on above: Performed By: #### G FR, ADIFF, CBC, ANEU, CMP, LIPID, [id number], TSH #### [place] [address] #### CPEP #### [address] [address] Lymphocytes/100 WBC (Bld) 33.6 % Normal 20.0-40.0 [facility] Comment on above: Performed By: #### G FR, ADIFF, CBC, ANEU, CMP, LIPID, [id number], TSH #### [place] [address] #### CPEP #### [address] [address] Monocyte, Absolute 0.3 10 3/mcL Normal 0.1-1.4 [facility] Comment on above: Performed By: #### G FR, ADIFF, CBC, ANEU, CMP, LIPID, [id number], TSH #### [address] [address] #### CPEP #### [address] [address] Monocytes/100 WBC (Bld) 4.8 % Normal 2.0-13.0 [facility] Comment on above: Performed By: #### G FR, ADIFF, CBC, ANEU, CMP, LIPID, [id number], TSH #### [address] [address] #### CPEP #### [address] [address] Neutrophils/100 WBC (Bld) 60.5 % Normal 50.0-75.0 [facility] Comment on above: Performed By: #### G FR, ADIFF, CBC, ANEU, CMP, LIPID, [id number], TSH #### [address] [address] #### CPEP #### [address] [address] .GFRon 06-23-2024 GFR/1.73 sq M.predicted among non-blacks MDRD (S/P/Bld) [Vol rate/Area] mL/min/{1.73_m2} [facility] Comment on above: Result Comment: Stages of [...] calculate the eGFR results. Performed By: #### G FR, ADIFF, CBC, ANEU, CMP, LIPID, [id number], TSH #### [address] [address] #### CPEP #### [address] [address] .NEUABSon 06-23-2024 Neutrophil, Absolute 4.4 10 3/mcL Normal 2.3-8.1 [facility] Comment on above: Performed By: #### G FR, ADIFF, CBC, ANEU, CMP, LIPID, [id number], TSH #### [place] [address] #### CPEP #### [place] [address] CBCon 06-23-2024 Erythrocyte distribution width (RBC) [Ratio] 13.0 % Normal 11.5-15.5 [facility] Comment on above: Performed By: #### G FR, ADIFF, CBC, ANEU, CMP, LIPID, [id number], TSH #### [place] [address] #### CPEP #### [place] [address] Hematocrit (Bld) [Volume fraction] 42.0 % Normal 34.0-46.0 [facility] Comment on above: Performed By: #### G FR, ADIFF, CBC, ANEU, CMP, LIPID, [id number], TSH #### [address] [address] #### CPEP #### [place] [address] Hgb 14.3 G/dL Normal 12.0-16.0 [facility] Comment on above: Performed By: #### G FR, ADIFF, CBC, ANEU, CMP, LIPID, [id number], TSH #### [place] [address] #### CPEP #### [place] [address] MCH (RBC) [Entitic mass] 27.6 pg Normal 27.0-33.0 [facility] Comment on above: Performed By: #### G FR, ADIFF, CBC, ANEU, CMP, LIPID, [id number], TSH #### [address] [address] #### CPEP #### [address] [address] MCHC 34.1 G/dL Normal 32.0-36.0 [facility] Comment on above: Performed By: #### G FR, ADIFF, CBC, ANEU, CMP, LIPID, [id number], TSH #### [place] [address] #### CPEP #### [place] [address] MCV (RBC) [Entitic vol] 81.0 fL Normal 80.0-99.0 [facility] Comment on above: Performed By: #### G FR, ADIFF, CBC, ANEU, CMP, LIPID, [id number], TSH #### [place] [address] #### CPEP #### [place] [address] Platelet 371 10 3/mcL Normal 150-450 [facility] Comment on above: Performed By: #### G FR, ADIFF, CBC, ANEU, CMP, LIPID, [id number], TSH #### [place] [address] #### CPEP #### [place] [address] Platelet mean volume (Bld) [Entitic vol] 8.2 fL Normal 6.6-10.5 [facility] Comment on above: Performed By: #### G FR, ADIFF, CBC, ANEU, CMP, LIPID, [id number], TSH #### [place] [address] #### CPEP #### [place] [address] RBC 5.19 10 6/mcL Normal 4.10-5.30 [facility] Comment on above: Performed By: #### G FR, ADIFF, CBC, ANEU, CMP, LIPID, [id number], TSH #### [address] [address] #### CPEP #### [address] [address] WBC 7.2 10 3/mcL Normal 4.5-10.8 [facility] Comment on above: Performed By: #### G FR, ADIFF, CBC, ANEU, CMP, LIPID, [id number], TSH #### [place] [address] #### CPEP #### [place] [address] CMPon 06-23-2024 Albumin Level 4.4 G/dL Normal 3.5-5.0 [facility] Comment on above: Performed By: #### G FR, ADIFF, CBC, ANEU, CMP, LIPID, [id number], TSH #### [place] [address] #### CPEP #### [place] [address] Albumin/Globulin [Mass ratio] 1.2 {ratio} Normal 1.1-2.5 [facility] Comment on above: Performed By: #### G FR, ADIFF, CBC, ANEU, CMP, LIPID, [id number], TSH #### [place] [address] #### CPEP #### [place] [address] ALP [Catalytic activity/Vol] 126 U/L Normal 40-135 [facility] Comment on above: Performed By: #### G FR, ADIFF, CBC, ANEU, CMP, LIPID, [id number], TSH #### [place] [address] #### CPEP #### [place] [id number] ALT [Catalytic activity/Vol] 21 U/L Normal 14-59 [facility] Comment on above: Performed By: #### G FR, ADIFF, CBC, ANEU, CMP, LIPID, [id number], TSH #### [place] [address] #### CPEP #### [address] [address] AST [Catalytic activity/Vol] 14 U/L Normal 10-40 [facility] Comment on above: Performed By: #### G FR, ADIFF, CBC, ANEU, CMP, LIPID, [id number], TSH #### [place] [address] #### CPEP #### [address] [address] Bili Total 0.3 mg/dL Normal 0.2-1.0 [facility] Comment on above: Result Comment: Use of this assay is not recommended for patients undergoing treatment with eltrombopag due to the potential for falsely elevated results. Performed By: #### G FR, ADIFF, CBC, ANEU, CMP, LIPID, [id number], TSH #### [place] [address] #### CPEP #### [place] [address] BUN/Creatinine Ratio 15 ratio Normal 7-27 [facility] Comment on above: Performed By: #### G FR, ADIFF, CBC, ANEU, CMP, LIPID, [id number], TSH #### [place] [address] #### CPEP #### [place] [address] Calcium [Mass/Vol] 9.6 mg/dL Normal 8.4-10.2 [facility] Comment on above: Performed By: #### G FR, ADIFF, CBC, ANEU, CMP, LIPID, [id number], TSH #### [place] [address] #### CPEP #### [place] [address] Chloride [Moles/Vol] 99 mmol/L Normal 98-107 [facility] Comment on above: Performed By: #### G FR, ADIFF, CBC, ANEU, CMP, LIPID, [id number], TSH #### [address] [address] #### CPEP #### [address] [address] CO2 [Moles/Vol] 29 mmol/L Normal 22-29 [facility] Comment on above: Performed By: #### G FR, ADIFF, CBC, ANEU, CMP, LIPID, [id number], TSH #### [address] [address] #### CPEP #### [address] [address] Creatinine [Mass/Vol] 0.73 mg/dL Normal 0.55-1.02 [facility] Comment on above: Result Comment: Test ing performed on Siemens Dimension EXL analyzer using a modified kinetic Mustapha technique. Performed By: #### G FR, ADIFF, CBC, ANEU, CMP, LIPID, [id number], TSH #### [address] [address] #### CPEP #### [address] [address] Electrolyte Balance 9.0 mEq/L Normal 4.0-15.0 [facility] Comment on above: Performed By: #### G FR, ADIFF, CBC, ANEU, CMP, LIPID, [id number], TSH #### [address] [address] #### CPEP #### [address] [address] Globulin 3.6 G/dL Normal 1.5-3.8 [facility] Comment on above: Performed By: #### G FR, ADIFF, CBC, ANEU, CMP, LIPID, [id number], TSH #### [address] [address] #### CPEP #### [address] [address] Glucose [Mass/Vol] 152 mg/dL High 70-105 [facility] Comment on above: Performed By: #### G FR, ADIFF, CBC, ANEU, CMP, LIPID, [id number], TSH #### [address] [address] #### CPEP #### [address] [address] Potassium [Moles/Vol] 4.0 mmol/L Normal 3.5-5.1 [facility] Comment on above: Performed By: #### G FR, ADIFF, CBC, ANEU, CMP, LIPID, [id number], TSH #### [place] [address] #### CPEP #### [address] [address] Sodium [Moles/Vol] 137 mmol/L Normal 136-145 [facility] Comment on above: Performed By: #### G FR, ADIFF, CBC, ANEU, CMP, LIPID, [id number], TSH #### [place] [address] #### CPEP #### [address] [address] Total Protein 8.0 G/dL Normal 6.4-8.2 [facility] Comment on above: Performed By: #### G FR, ADIFF, CBC, ANEU, CMP, LIPID, [id number], TSH #### [place] [address] #### CPEP #### [address] [address] Urea nitrogen [Mass/Vol] 11 mg/dL Normal 7-18 [facility] Comment on above: Performed By: #### G FR, ADIFF, CBC, ANEU, CMP, LIPID, [id number], TSH #### [place] [address] #### CPEP #### [address] [address] CPEPon 06-23-2024 C-Peptide 2.32 ng/mL Normal 0.81-3.85 [facility] Comment on above: Order Comment: +/- 2 8 days from order time Performed By: #### G FR, ADIFF, CBC, ANEU, CMP, LIPID, [id number], TSH #### [address] [address] #### CPEP #### [address] [address] LIPIDon 06-23-2024 Cholesterol [Mass/Vol] 156 mg/dL Normal 0-200 [facility] Comment on above: Result Comment: Chol esterol Reference Interval: Less than 200 Desirable 200-239 Borderline high risk 240 and above High risk Performed By: #### G FR, ADIFF, CBC, ANEU, CMP, LIPID, [id number], TSH #### [address] [address] #### CPEP #### [address] [address] Cholesterol in HDL [Mass/Vol] 56 mg/dL Normal 40-60 [facility] Comment on above: Performed By: #### G FR, ADIFF, CBC, ANEU, CMP, LIPID, [id number], TSH #### [address] [address] #### CPEP #### [address] [address] Cholesterol in LDL [Mass/Vol] 90 mg/dL Normal 0-130 [facility] Comment on above: Performed By: #### G FR, ADIFF, CBC, ANEU, CMP, LIPID, [id number], TSH #### [address] [address] #### CPEP #### [address] [address] Triglyceride [Mass/Vol] 49 mg/dL Normal 0-150 [facility] Comment on above: Result Comment: Trig lyceride Reference Interval: Less than 150 Normal 150-199 Borderline high risk 200-499 High risk 500 or higher Very high risk Performed By: #### G FR, ADIFF, CBC, ANEU, CMP, LIPID, [id number], TSH #### [address] [place], [place] [address] #### CPEP #### [address] [address] TSHon 06-23-2024 TSH Qn 1.49 m[IU]/L Normal 0.36-3.74 [facility] Comment on above: Performed By: #### G FR, ADIFF, CBC, ANEU, CMP, LIPID, [id number], TSH #### [place] [address] [place], [place] [address] #### CPEP #### [address] [address] Bacteria Ur Culton Bacteria identified Cx Nom (U) CULTURE, URINE: No growth (<1,000 CFU/ml) Normal [facility] Comment on above: Performed By: #### 6 30-4 #### [facility] CLIA [id number] [address] [place] [address] [facility] CNOVon 06-01-2024 CNOV Office Visit (WSTR ) NEELAM MEDEROSILY MARTIN ([id number]) 1 F Date Time Provider Department 06/01/24 4:45 PM APRIL VILLEGAS [facility] During your visit today, we recorded the following information about you: Temperature Pulse Respiration Blood pressure 98.5 degrees 100/minute 16/minute 122/72 Weight 89 kg April Villegas, FLARE MAKER.GARMENT MANUFACTURING SUPERVISOR 06/01/2024 5:49 PM Signed [facility] Subjective Jordana Mederos is a 18 year old female. [...] culture results. 2. Pelvic pain - ICD9: [id number], ICD10: R10.2 - UA Dip unremarkable for signs of infection - will send urine out for Urinalysis and UAC. - UA DIP, URINE (POC) - BACTERIAL CULTURE, URINE - URINALYSIS, WITH MICROSCOPIC - will reach out to patient regarding results and will prescribe antibiotic treatment if warranted based on culture results. Chayo Mantilla TEACHING PROVIDER (Physician/PA/FLARE MAKER) NOTE OF PERSONAL INVOLVEMENT IN CARE: I have personally seen and examined the patient and performed the medical decision-making components. I have reviewed the Advanced Practice Registered Nurse (FLARE MAKER) Student's documentation and verified the findings in [...] culture results. 2. Pelvic pain - ICD9: [id number], ICD10: R10.2 - UA Dip unremarkable for [...] [R10.2] Order (more content not included)... Normal [facility] UA DIP, URINE (POC)on 2024 BILIRUBIN UA (POCT) Negative Negative [facility] CLARITY UA (POCT) Clear [facility] COLOR UA (POCT) Yellow [facility] GLUCOSE UA (POCT) 250 mg/dL Abnormal Negative [facility] Hemoglobin Ql (U) Trace-intact Abnormal Negative [facility] Interpretation and review of laboratory results Abnormal [facility] KETONE UA (POCT) Negative Negative mg/dL [facility] LEUKOCYTES UA (POCT) Negative Negative [facility] NITRITE UA (POCT) Negative Negative [facility] PH UA (POCT) 6 4.5 - 8.0 [facility] Protein Ql (U) Negative Negative mg/dL [facility] SPECIFIC GRAVITY UA (POCT) 1.01 1.005 - 1.030 [facility] UROBILINOGEN UA (POCT) 0.2 Rosalia l E.U./dL [facility] Location:[facility], [address] [place] [address], [place], [place], [address] [place] [address] POINT OF CARE [facility] Urinalysis complete panel (U )on 06-01-2024 Bacteria LM.HPF (Urine sed) [#/Area] Negative Normal Negative [facility] Comment on above: Order Comment: Speci men Type: URINE SPECIMEN Ordering Facility: [facility] Address: [address] [place] [address] Performed By: #### 2 4356-8 #### [facility] CLIA [id number] [address] [place] [address] [place] Bilirubin Ql (U) Negative Normal Negative [facility] Comment on above: Order Comment: Speci men Type: URINE SPECIMEN Ordering Facility: [facility] Address: [address] [place] [address] Performed By: #### 2 4356-8 #### [facility] CLIA [id number] [address] [place] [address] [place] Clarity (Unsp spec) Clear Normal Clear [facility] Comment on above: Order Comment: Speci men Type: URINE SPECIMEN Ordering Facility: [facility] Address: [address] [place] [address] Performed By: #### 2 4356-8 #### [facility] CLIA [id number] [address] [place] [address] [place] [facility] Color (U) Yellow Normal Yellow [facility] Comment on above: Order Comment: Speci men Type: URINE SPECIMEN Ordering Facility: [facility] Address: [address] [place] [address] Performed By: #### 2 4356-8 #### [facility] CLIA [id number] [address] [place] [address] [place] Epithelial cells LM.HPF (Urine sed) [#/Area] None Seen Normal [facility] Comment on above: Order Comment: Speci men Type: URINE SPECIMEN Ordering Facility: [facility] Address: [address] [place] [address] Performed By: #### 2 4356-8 #### [facility] CLIA [id number] [address] [place] [address] [place] Glucose Test strip (U) [Mass/Vol] 1+ Abnormal Negative [facility] Comment on above: Order Comment: Speci men Type: URINE SPECIMEN Ordering Facility: [facility] Address: [address] [place] [address] Performed By: #### 2 4356-8 #### [facility] CLIA [id number] [address] [place] [address] [place] Hemoglobin Ql (U) Negative Normal Negative [facility] Comment on above: Order Comment: Speci men Type: URINE SPECIMEN Ordering Facility: [facility] Address: [address] [place] [address] Performed By: #### 2 4356-8 #### [facility] CLIA [id number] [address] [place] [address] [place] Hyaline casts (Urine sed) [#/Area] 0 /[LPF] Normal 0 /LPF [facility] Comment on above: Order Comment: Speci men Type: URINE SPECIMEN Ordering Facility: [facility] Address: [address] [place] [address] Performed By: #### 2 4356-8 #### [facility] CLIA [id number] [address] [place], [place] [id number] [place] Ketones Ql (U) Negative Normal Negative [facility] Comment on above: Order Comment: Speci men Type: URINE SPECIMEN Ordering Facility: [facility] Address: [address] [place] [address] Performed By: #### 2 4356-8 #### [facility] CLIA [id number] [address] [place], [place] [id number] [place] Leukocyte esterase Test strip Ql (U) Negative Normal Negative [facility] Comment on above: Order Comment: Speci men Type: URINE SPECIMEN Ordering Facility: [facility] Address: [address] [place] [address] Performed By: #### 2 4356-8 #### [facility] CLIA [id number] [address] [place] [address] [place] Nitrite Ql (U) Negative Normal Negative [facility] Comment on above: Order Comment: Speci men Type: URINE SPECIMEN Ordering Facility: [facility] Address: [address] [place] [address] Performed By: #### 2 4356-8 #### [facility] CLIA [id number] [address] [place], [place] [id number] [place] pH (U) 6.5 [pH] Normal <8.5 [facility] Comment on above: Order Comment: Speci men Type: URINE SPECIMEN Ordering Facility: [facility] Address: [address] [place], [place] [id number] Performed By: #### 2 4356-8 #### [facility] CLIA [id number] [address] [place], [place] [id number] [place] Protein (U) [Mass/Vol] Negative Normal Negative [facility] Comment on above: Order Comment: Speci men Type: URINE SPECIMEN Ordering Facility: [facility] Address: [address] [place], [place] [id number] Performed By: #### 2 4356-8 #### [facility] CLIA [id number] [address] [place] [address] [place] RBC LM.HPF (Urine sed) [#/Area] 0-2 /HPF Normal 0-2 /HPF [facility] Comment on above: Order Comment: Speci men Type: URINE SPECIMEN Ordering Facility: [facility] Address: [address] [place] [address] Performed By: #### 2 4356-8 #### [facility] CLIA [id number] [address] [place] [address] [place] Specific gravity (U) [Rel density] 1.008 Normal 1.005-1.030 [facility] Comment on above: Order Comment: Speci men Type: URINE SPECIMEN Ordering Facility: [facility] Address: [address] [place] [address] Performed By: #### 2 4356-8 #### [facility] CLIA [id number] [address] [place] [address] [place] Urobilinogen Ql (U) 0.2 EU/dL Normal 0.2-1.0 EU/dL [facility] Comment on above: Order Comment: Speci men Type: URINE SPECIMEN Ordering Facility: [facility] Address: [address] [place] [address] Performed By: #### 2 4356-8 #### [facility] CLIA [id number] [address] [place] [address] [place] WBC LM.HPF (Urine sed) [#/Area] 0-5 /HPF Normal 0-5 /HPF [facility] Comment on above: Order Comment: Speci men Type: URINE SPECIMEN Ordering Facility: [facility] Address: [address] [place] [address] Performed By: #### 2 4356-8 #### [facility] CLIA [id number] [address] [place] [address] OF [facility] .Auto Diffon 09-18-2023 Basophil, Absolute 0.1 10 3/mcL Normal 0.0-0.2 [facility] ([place]) Comment on above: Performed By: #### C BC, ADIFF, ANEU, TSH, CMP, GFR #### [address] [address] Basophils/100 WBC (Bld) 1.0 % Normal 0.0-2.5 [facility] ([place]) Comment on above: Performed By: #### C BC, ADIFF, ANEU, TSH, CMP, GFR #### [address] [address] Eosinophil, Absolute 0.1 10 3/mcL Normal 0.0-0.4 [facility] ([place]) Comment on above: Performed By: #### C BC, ADIFF, ANEU, TSH, CMP, GFR #### [address] [address] Eosinophils/100 WBC (Bld) 0.7 % Normal 0.0-7.0 [facility] ([place]) Comment on above: Performed By: #### C BC, ADIFF, ANEU, TSH, CMP, GFR #### [address] [address] Lymphocyte, Absolute 2.2 10 3/mcL Normal 0.8-3.9 [facility] ([place]) Comment on above: Performed By: #### C BC, ADIFF, ANEU, TSH, CMP, GFR #### [address] [address] Lymphocytes/100 WBC (Bld) 28.7 % Normal 10.0-50.0 [facility] ([place]) Comment on above: Performed By: #### C BC, ADIFF, ANEU, TSH, CMP, GFR #### [address] [address] Monocyte, Absolute 0.4 10 3/mcL Normal 0.2-1.0 [facility] ([place]) Comment on above: Performed By: #### C BC, ADIFF, ANEU, TSH, CMP, GFR #### [address] [address] Monocytes/100 WBC (Bld) 4.9 % Normal 1.7-13.0 A [facility] ([place]) Comment on above: Performed By: #### C BC, ADIFF, ANEU, TSH, CMP, GFR #### [address] [address] Neutrophils/100 WBC (Bld) 64.7 % Normal 37.0-80.0 [facility] ([place]) Comment on above: Performed By: #### C BC, ADIFF, ANEU, TSH, CMP, GFR #### [address] [address] .GFRon 09-18-2023 GFR 146 ml/min/1.73sqm Normal [facility] ([place]) Comment on above: Result Comment: GFR Population [...] BC, ADIFF, ANEU, TSH, CMP, GFR #### [address] [address] GFR Non- 120 ml/min/1.73sqm Normal [facility] ([place]) Comment on above: Result Comment: GFR Population [...] BC, ADIFF, ANEU, TSH, CMP, GFR #### [place] [id number] .NEUABSon 09-18-2023 Neutrophil, Absolute 4.9 10 3/mcL Normal 2.9-6.2 [facility] ([place]) Comment on above: Performed By: #### C BC, ADIFF, ANEU, TSH, CMP, GFR #### [place] [address] CBCon 09-18-2023 Erythrocyte distribution width (RBC) [Ratio] 12.9 % Normal 11.5-14.5 [facility] ([place]) Comment on above: Performed By: #### C BC, ADIFF, ANEU, TSH, CMP, GFR #### [place] [address] Hematocrit (Bld) [Volume fraction] 40.6 % Normal 37.0-47.0 [facility] ([place]) Comment on above: Performed By: #### C BC, ADIFF, ANEU, TSH, CMP, GFR #### [place] [id number] Hgb 13.9 G/dL Normal 12.0-16.0 [facility] ([place]) Comment on above: Performed By: #### C BC, ADIFF, ANEU, TSH, CMP, GFR #### [place] [address] MCH (RBC) [Entitic mass] 28.6 pg Normal 27.0-31.2 [facility] ([place]) Comment on above: Performed By: #### C BC, ADIFF, ANEU, TSH, CMP, GFR #### [place] [id number] MCHC 34.2 G/dL Normal 33.0-37.0 [facility] ([place]) Comment on above: Performed By: #### C BC, ADIFF, ANEU, TSH, CMP, GFR #### [address] [address] MCV (RBC) [Entitic vol] 83.5 fL Normal 80.0-94.0 [facility] ([place]) Comment on above: Performed By: #### C BC, ADIFF, ANEU, TSH, CMP, GFR #### [address] [address] Platelet 315 10 3/mcL Normal 130-400 [facility] ([place]) Comment on above: Performed By: #### C BC, ADIFF, ANEU, TSH, CMP, GFR #### [address] [address] Platelet mean volume (Bld) [Entitic vol] 8.1 fL Normal 7.4-10.4 [facility] ([place]) Comment on above: Performed By: #### C BC, ADIFF, ANEU, TSH, CMP, GFR #### [address] [address] RBC 4.86 10 6/mcL Normal 4.20-5.40 [facility] ([place]) Comment on above: Performed By: #### C BC, ADIFF, ANEU, TSH, CMP, GFR #### [address] [address] WBC 7.5 10 3/mcL Normal 4.6-10.8 [facility] ([place]) Comment on above: Performed By: #### C BC, ADIFF, ANEU, TSH, CMP, GFR #### [address] [address] CMPon 09-18-2023 Albumin Level 4.5 G/dL Normal 3.5-5.0 [facility] ([place]) Comment on above: Performed By: #### C BC, ADIFF, ANEU, TSH, CMP, GFR #### [address] [address] Albumin/Globulin [Mass ratio] 1.2 {ratio} Normal 1.1-2.5 [facility] ([place]) Comment on above: Performed By: #### C BC, ADIFF, ANEU, TSH, CMP, GFR #### [address] [address] ALP [Catalytic activity/Vol] 113 U/L Normal 40-135 [facility] ([place]) Comment on above: Performed By: #### C BC, ADIFF, ANEU, TSH, CMP, GFR #### [address] [address] ALT [Catalytic activity/Vol] 27 U/L Normal 14-59 [facility] ([place]) Comment on above: Performed By: #### C BC, ADIFF, ANEU, TSH, CMP, GFR #### [address] [address] AST [Catalytic activity/Vol] 20 U/L Normal 10-40 [facility] ([place]) Comment on above: Performed By: #### C BC, ADIFF, ANEU, TSH, CMP, GFR #### [address] [address] Bili Total 0.3 mg/dL Normal 0.2-1.0 [facility] ([place]) Comment on above: Result Comment: Use of this assay is not recommended for patients undergoing treatment with eltrombopag due to the potential for falsely elevated results. Performed By: #### C BC, ADIFF, ANEU, TSH, CMP, GFR #### [address] [address] BUN/Creatinine Ratio 19 ratio Normal 7-27 [facility] ([place]) Comment on above: Performed By: #### C BC, ADIFF, ANEU, TSH, CMP, GFR #### [address] [address] Calcium [Mass/Vol] 9.4 mg/dL Normal 8.4-10.2 [facility] ([place]) Comment on above: Performed By: #### C BC, ADIFF, ANEU, TSH, CMP, GFR #### [address] [address] Chloride [Moles/Vol] 103 mmol/L Normal 98-107 [facility] ([place]) Comment on above: Performed By: #### C BC, ADIFF, ANEU, TSH, CMP, GFR #### [address] [address] CO2 [Moles/Vol] 27 mmol/L Normal 22-29 [facility] ([place]) Comment on above: Performed By: #### C BC, ADIFF, ANEU, TSH, CMP, GFR #### [address] [address] Creatinine [Mass/Vol] 0.63 mg/dL Normal 0.55-1.02 [facility] ([place]) Comment on above: Performed By: #### C BC, ADIFF, ANEU, TSH, CMP, GFR #### [address] [address] Electrolyte Balance 10.0 mEq/L Normal 4.0-15.0 [facility] ([place]) Comment on above: Performed By: #### C BC, ADIFF, ANEU, TSH, CMP, GFR #### [address] [address] Globulin 3.7 G/dL Normal [facility] ([place]) Comment on above: Performed By: #### C BC, ADIFF, ANEU, TSH, CMP, GFR #### [address] [address] Glucose [Mass/Vol] 105 mg/dL Normal 70-105 [facility] ([place]) Comment on above: Performed By: #### C BC, ADIFF, ANEU, TSH, CMP, GFR #### [address] [address] Potassium [Moles/Vol] 4.7 mmol/L Normal 3.5-5.1 [facility] ([place]) Comment on above: Performed By: #### C BC, ADIFF, ANEU, TSH, CMP, GFR #### [address] [address] Sodium [Moles/Vol] 140 mmol/L Normal 136-145 [facility] ([place]) Comment on above: Performed By: #### C BC, ADIFF, ANEU, TSH, CMP, GFR #### [address] [address] Total Protein 8.2 G/dL Normal 6.4-8.2 [facility] ([place]) Comment on above: Performed By: #### C BC, ADIFF, ANEU, TSH, CMP, GFR #### [address] [address] Urea nitrogen [Mass/Vol] 12 mg/dL Normal 7-18 [facility] ([place]) Comment on above: Performed By: #### C BC, ADIFF, ANEU, TSH, CMP, GFR #### [address] [address] TSHon 09-18-2023 TSH Qn 1.50 m[IU]/L Normal 0.36-3.74 [facility] ([place]) Comment on above: Performed By: #### C BC, ADIFF, ANEU, TSH, CMP, GFR #### [address] [address] .Auto Diffon 08-05-2023 Basophil, Absolute 0.0 10 3/mcL Normal 0.0-0.2 [facility] ([place]) Comment on above: Performed By: #### C BC, ADIFF, ANEU, TSH, CMP, GFR #### [address] [address] Basophils/100 WBC (Bld) 0.3 % Normal 0.0-2.5 [facility] ([place]) Comment on above: Performed By: #### C BC, ADIFF, ANEU, TSH, CMP, GFR #### [address] [address] Eosinophil, Absolute 0.1 10 3/mcL Normal 0.0-0.4 [facility] ([place]) Comment on above: Performed By: #### C BC, ADIFF, ANEU, TSH, CMP, GFR #### [address] [address] Eosinophils/100 WBC (Bld) 0.6 % Normal 0.0-7.0 [facility] ([place]) Comment on above: Performed By: #### C BC, ADIFF, ANEU, TSH, CMP, GFR #### [address] [address] Lymphocyte, Absolute 3.5 10 3/mcL Normal 0.8-3.9 [facility] ([place]) Comment on above: Performed By: #### C BC, ADIFF, ANEU, TSH, CMP, GFR #### [address] [address] Lymphocytes/100 WBC (Bld) 33.0 % Normal 10.0-50.0 [facility] ([place]) Comment on above: Performed By: #### C BC, ADIFF, ANEU, TSH, CMP, GFR #### [address] [address] Monocyte, Absolute 0.6 10 3/mcL Normal 0.2-1.0 [facility] ([place]) Comment on above: Performed By: #### C BC, ADIFF, ANEU, TSH, CMP, GFR #### [address] [address] Monocytes/100 WBC (Bld) 5.2 % Normal 1.7-13.0 [facility] ([place]) Comment on above: Performed By: #### C BC, ADIFF, ANEU, TSH, CMP, GFR #### [address] [address] Neutrophils/100 WBC (Bld) 60.9 % Normal 37.0-80.0 [facility] ([place]) Comment on above: Performed By: #### C BC, ADIFF, ANEU, TSH, CMP, GFR #### [address] [address] .GFRon 08-05-2023 GFR 116 ml/min/1.73sqm Normal [facility] ([place]) Comment on above: Result Comment: GFR Population [...] BC, ADIFF, ANEU, TSH, CMP, GFR #### [address] [address] GFR Non- 96 ml/min/1.73sqm Normal [facility] ([place]) Comment on above: Result Comment: GFR Population [...] BC, ADIFF, ANEU, TSH, CMP, GFR #### [address] [address] .MDWon 08-05-2023 Monocyte Distribution Width 17.33 Normal 0.00-20.00 [facility] ([place]) Comment on above: Result Comment: For ED adult patients suspected of sepsis, MDW<=20.0 does not rule out sepsis or risk of sepsis Performed By: #### C BC, ADIFF, ANEU, TSH, CMP, GFR #### [address] [address] .NEUABSon 08-05-2023 Neutrophil, Absolute 6.5 10 3/mcL High 2.9-6.2 [facility] ([place]) Comment on above: Performed By: #### C BC, ADIFF, ANEU, TSH, CMP, GFR #### [address] [address] BMPon 08-05-2023 BUN/Creatinine Ratio 17 ratio Normal 7-27 [facility] ([place]) Comment on above: Performed By: #### C BC, ADIFF, ANEU, TSH, CMP, GFR #### [address] [address] Creatinine [Mass/Vol] 0.77 mg/dL Normal 0.55-1.02 [facility] ([place]) Comment on above: Performed By: #### C BC, ADIFF, ANEU, TSH, CMP, GFR #### [address] [address] Calcium [Mass/Vol] 8.7 mg/dL Normal 8.4-10.2 [facility] ([place]) Comment on above: Performed By: #### C BC, ADIFF, ANEU, TSH, CMP, GFR #### [address] [address] Chloride [Moles/Vol] 102 mmol/L Normal 98-107 [facility] ([place]) Comment on above: Performed By: #### C BC, ADIFF, ANEU, TSH, CMP, GFR #### [address] [address] CO2 [Moles/Vol] 21 mmol/L Low 22-29 [facility] ([place]) Comment on above: Performed By: #### C BC, ADIFF, ANEU, TSH, CMP, GFR #### [address] [address] Electrolyte Balance 16.0 mEq/L High 4.0-15.0 [facility] ([place]) Comment on above: Performed By: #### C BC, ADIFF, ANEU, TSH, CMP, GFR #### [address] [address] Glucose [Mass/Vol] 102 mg/dL Normal 70-105 [facility] ([place]) Comment on above: Performed By: #### C BC, ADIFF, ANEU, TSH, CMP, GFR #### [address] [address] Potassium [Moles/Vol] 3.8 mmol/L Normal 3.5-5.1 [facility] ([place]) Comment on above: Performed By: #### C BC, ADIFF, ANEU, TSH, CMP, GFR #### [address] [address] Sodium [Moles/Vol] 139 mmol/L Normal 136-145 [facility] ([place]) Comment on above: Performed By: #### C BC, ADIFF, ANEU, TSH, CMP, GFR #### [place] [address] Urea nitrogen [Mass/Vol] 13 mg/dL Normal 7-18 [facility] ([place]) Comment on above: Performed By: #### C BC, ADIFF, ANEU, TSH, CMP, GFR #### [place] [address] CBCon 08-05-2023 Erythrocyte distribution width (RBC) [Ratio] 12.9 % Normal 11.5-14.5 [facility] ([place]) Comment on above: Performed By: #### G FR, CBC, ADRAUL, MD CHASTITYW, BMP #### [place] [address] Hematocrit (Bld) [Volume fraction] 38.9 % Normal 37.0-47.0 [facility] ([place]) Comment on above: Performed By: #### G FR, CBC, ADIFF, MD CHASTITYW, BMP #### [place] [id number] Hgb 13.8 G/dL Normal 12.0-16.0 [facility] ([place]) Comment on above: Performed By: #### G FR, CBC, ADIFF, CHASTITY, MDW, BMP #### [place] [id number] MCH (RBC) [Entitic mass] 29.3 pg Normal 27.0-31.2 [facility] ([place]) Comment on above: Performed By: #### G FR, CBC, CHASTITY AVILES MDW, BMP #### [address] [address] MCHC 35.5 G/dL Normal 33.0-37.0 [facility] ([place]) Comment on above: Performed By: #### G FR, CBC, TRACI, TA HAYWOOD, BMP #### [address] [address] MCV (RBC) [Entitic vol] 82.4 fL Normal 80.0-94.0 A [facility] ([place]) Comment on above: Performed By: #### G FR, CBC, TRACI, TA HAYWOOD, BMP #### [address] [address] Platelet 338 10 3/mcL Normal 130-400 [facility] ([place]) Comment on above: Performed By: #### G FR, CBC, TRACI, TA HAYWOOD, BMP #### [address] [address] Platelet mean volume (Bld) [Entitic vol] 7.8 fL Normal 7.4-10.4 [facility] ([place]) Comment on above: Performed By: #### G FR, CBC, TRACI, TA HAYWOOD, BMP #### [address] [address] RBC 4.72 10 6/mcL Normal 4.20-5.40 [facility] ([place]) Comment on above: Performed By: #### G FR, CBC, TRACI, TA HAYWOOD, BMP #### [address] [address] WBC 10.7 10 3/mcL Normal 4.6-10.8 [facility] ([place]) Comment on above: Performed By: #### G FR, CBC, TRACI, TA HAYWOOD, BMP #### [address] [address] [address] ABDOMEN/PELVIS W/O CONTRA Faustino 08-05-2023 CT ABDOMEN/PELVIS W/O CONTRAST ORIGINAL EXAMINATION: [...] Date: 08/05/2023 5:04:02 AM Ordering Provider: JUD Gibbons [facility] ([place]) LABORATORYOrdered By: SYSTEM SYSTEM on 08-05-2023 Basophil, [...] Ql (U) Negative Normal Negative AO Auto Urine SS test (u) int Not detected Invalid [...] HCG ( test) Ql (U) Negative Normal [facility] ([place]) Comment on above: Performed By: #### P REGU #### [address] [address] test (u) int Not detected Invalid Interpretation Code [facility] ([place]) Comment on above: Performed By: #### P REGU #### [address] [address] UAon 08-05-2023 Color (U) Yellow Normal [facility] ([place]) Comment on above: Performed By: #### U A #### [address] [address] Glucose (U) [Mass/Vol] Negative Normal Negative [facility] ([place]) Comment on above: Performed By: #### U A #### [address] [address] Ketones Ql (U) Negative Normal Negative [facility] ([place]) Comment on above: Performed By: #### U A #### [address] [address] UA Appear Clear Normal Clear [facility] ([place]) Comment on above: Performed By: #### U A #### [address] [address] UA Blood Trace Abnormal Negative [facility] ([place]) Comment on above: Performed By: #### U A #### [address] [address] UA Leuk Est Negative Normal Negative [facility] ([place]) Comment on above: Performed By: #### U A #### [address] [address] UA Nitrite Negative Normal Negative [facility]) Comment on above: Performed By: #### U A #### [address] [address] UA pH 7.0 Normal 5.0 - 8.0 [facility] ([place]) Comment on above: Performed By: #### U A #### [address] [address] UA Protein Negative Normal Negative [facility] ([place]) Comment on above: Performed By: #### U A #### [address] [address] UA Spec Grav 1.010 Abnormal 1.015-1.025 [facility] ([place]) Comment on above: Performed By: #### U A #### [address] [address] UA Specimen Type Clean Catch Normal [facility]) Comment on above: Performed By: #### U A #### [address] [address] UA Urobilinogen 0.2 E.U./dL Normal 0.2-1.0 [facility]) Comment on above: Performed By: #### U A #### [address] [address] Urobilinogen (U) [Mass/Vol] Negative Normal Negative [facility]) Comment on above: Performed By: #### U A #### [address] [address] CNOVon 06-12-2023 CNOV Office Visit (OBGYWM ) JORDANA MEDEROS ([id number]) 1 F Date Time Provider Department 06/12/23 10:00 AM YUKI CASTILLO OBGYWM During your visit today, we recorded the following information about you: Blood pressure Weight Height Last Period 110/66 80.1 kg 1.575 m 05/22/23 Yuki Castillo APRN.CN 06/12/2023 12:24 PM Signed Jordana is a 17 year old who presents [...] L0 SAB0 IAB0 Ectopic0 Multiple0 Live Births0 Credit Rating Inspector History LMP: 05/22/2023 (Exact Date), Having periods Age at Menarche: Age at First : Age at Menopause: Credit Rating Inspector History Comments: Sexual Activity: Yes; Male Contraception: [...] one year or sooner as needed. Yuki Castillo APRN.CNM Allergies As of Date: 06/12/2023 Noted Allergy Reaction BEE STING 06/12/2023 10 - Anaphylaxis Date Reviewed: 06/12/2023 Reviewed by: Yuki Castillo APRN.CNM - Fully Assessed Reason for Visit: Yearly Exam [187] Primary Visit Diagnosis:Encounter for gynecological examination (general) (routine) without abnormal findings [Z01.419] Other Visit Diagnosis:Patient desires [Z31.9] Problem List As Of Date: 06/12/2023 (None) Disposition: Return in 1 year (on 06/11/2024) for Annual Exam. Follow-up and Disposition History for Encounter Date Provider Department Center 06/12/2023 [id number] CASTILLO [facility] Encounter Status:Closed by YUKI CASTILLO on 06/12/23 Normal [facility] Progress Noteon 04-30-2022 Cross Roller Authentication Interface Message Text Patient ID: Jordana Mederos is a 16 y.o. female. Her chief complaint(s) include: 16 YEAR WELL CHILD Assessment 1. Routine general medical examination at a health care facility 2. Bee allergy status 3. Eczema, unspecified type Plan Jordana was seen today for 16 year well child. Diagnoses and associated orders for this visit: Routine general medical examination at a health care facility - PHQ9 Assessment With Score - Health Risk Assessment - DANDRE Bee allergy status - EPINEPHrine (EPIPEN 2-HARIS) [...] chart and normal growth and development with Jordana. Declined hearing and vision screenings in office. No concerns. Offered, but Jordana declined, flu and COVID vaccines. Refills sent for Epi Pen and eczema ointments. Subjective She is unaccompanied. 16 YEAR WELL CHILD Home: Jordana eats meals with family (lives with mom and dad), has an adult to turn to for help and is permitted and able to make independent decisions. Jordana has no home risk identified. Education: Jordana is in the work force and is doing well. Eating: Jordana eats regular meals including fruits and vegetables, limits fast food, drinks non-sweetened liquids (drinks water) and has a calcium source (lots of milk). Jordana does not eat breakfast (some days). 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 Jordana performs less than 1 hour of physical activity daily and engages in screen time more than 2 hours daily. (received got a puppy). Drugs: Jordana does not use tobacco, does not use drugs, does not use alcohol and does not vape. Safety: Jordana has a violence free home, has peer relationships free from violence and uses seat belt. Sex: The patient is interested in males. The patient has had sex. The patient's gender identity is cisgender. Typically, the patient uses none as current contraceptive method. STD screening offered and declined. Suicidality: Jordana has ways to cope with stress and displays self-confidence. Jordana has no problems with sleep, has no [...] not heard. (more content not included)... Normal [facility] Provider Note - ED v3on 12-0 Provider Note - ED v3 Provider Note: Chart Review: HISTORY OF PRESENTING ILLNESS JORDANA is a 16 year old Female and [...] Use: unable to assess Alcohol Use: denies ALLERGIES/INTOLERANCE S: No Known Allergies HEALTH HISTORY: No documented [...] SIGNS: T PRBP SpO2O2(LPM) %FiO2 Method 07-Mar-2022 15:09:[id number] /94 99 DISPOSITION Diagnosis/Annotation: ED Dx Name:Urinary tract infection Code:N39.0 Macrobid sent to pharmacy take for 5 days follow up with pcp 5-7 if not improved Disposition: discharged Type: home CONSULT CRITICAL CARE TIME Is this a critically ill patient: no Electronic Signatures: Vinny Sanchez (FLARE MAKER-GARMENT MANUFACTURING SUPERVISOR) (Signed 07-Mar-2022 16:08) Authored: HPI, PMH, ROS, PE, Results/Vital Signs, Clinical Impression, Attestation, Chart Review, Scores Last Updated: 07-Mar-2022 16:08 by Vinny Sanchez (FLARE MAKER-GARMENT MANUFACTURING SUPERVISOR) [facility] URINE CULTURE,BACTERIALon URINE CULTURE,BACTERIAL PATIENT: Michael MEDEROS LOCATION: [facility] [place] BILL#: [id number] : 1 AGE: SEX: F ORDERED BY: VINNY SANCHEZ SOURCE: URINE COLLECTED: 03/07/22 16:00 ANTIBIOTICS AT LINDA.: RECEIVED : 03/08/22 00:35 SITE: Clean Catch/Voided R E S U L T S URINE CULTURE,BACTERIAL FINAL 03/10/22 09:46 ISOLATE1 : Escherichia coli 20,000-80,000 CFU/ML __ Organism E coli Antibiotic BP INTRP __ Ampicillin S Ceftriaxone S Cefazolin S Ciprofloxacin S Nitrofurantoin S Gentamicin S Levofloxacin S Piperc/Tazobact S Trimeth/Sulfa S S=SUSCEPTIBLE I=INTERMEDIATE R=RESISTANT SDD=SUSCEPTIBLE DOSE DEPENDENT NS=NONSUSCEPTIBLE X=REPORTED IN ERROR Normal [facility] Comment on above: Performed By: #### U [facility] #### [facility] [address] [place] [address] Basophil percentageon 2021 Basophil percentage 50-100 SEEN /hpf 0-5 [facility] Work Phone: Bilirubin Test strip Ql (U)o n 09-14-2021 Bilirubin Ql (U) Negative Negative [facility] Work Phone: Ketones Test strip Ql (U)on 09-14-2021 Ketones Ql (U) Negative Negative [facility] Work Phone: Laboratory - Chemistry and C hemistry - challengeon 09-14-2021 Bilirubin Ql (U) Negative [facility] Work Phone: Glucose Ql (U) Negative [facility] Work Phone: HCG ( test) Ql (U) Negative [facility] Work Phone: Ketones Ql (U) Negative [facility] Work Phone: pH (U) 6.0 [pH] [facility] Work Phone: Specific gravity (U) [Rel density] 1.025 [facility] Work Phone: Urobilinogen (U) [Mass/Vol] 0.9327582 mg/dL [facility] Work Phone: Laboratory - Hematology and Cell countson 09-14-2021 Hemoglobin Ql (U) Hemolyzed [facility] Work Phone: Laboratory - Specimen inform ationon 09-14-2021 Clarity (U) Cloudy [facility] Work Phone: Color (U) Yellow [facility] Work Phone: Laboratory - Urinalysison Nitrite Ql (U) Negative [facility] Work Phone: Protein Ql (U) 3+ [facility] Work Phone: [phone] Mucus LM Ql (Urine sed)on Mucus Ql (Urine sed) 0 SEEN /hpf [facility] Work Phone: Nitrite Test strip Ql (U)on 09-14-2021 Nitrite Ql (U) Negative Negative [facility] Work Phone: No Panel Informationon 09-14 Urine Leukocytes Positive [facility] Work Phone: Urine Non-Hemolyzed Blood Large [facility] Work Phone: Protein Test strip Ql (U)on 09-14-2021 Protein Ql (U) 30 mg/dl Negative [facility] Work Phone: Squamous epithelial cells de tection in urine sediment by light microscopyon 09-14-2021 Epithelial cells.squamous LM Ql (Urine sed) 0 SEEN /hpf 5-10 [facility] Work Phone: Urine blood detectionon 08-29 RBC Ql (U) 250 /ul Negative [facility] Work Phone: RBC Ql (U) 10-25 SEEN /hpf 0-5 [facility] Work Phone: Urine clarityon 09-14-2021 Clarity (U) Sl. Cloudy Clear [facility] Work Phone: Urine color determinationon 09-14-2021 Color (U) Yellow Yellow [facility] Work Phone: Urine glucose detectionon Glucose Ql (U) Normal mg/dl Normal [facility] Work Phone: Urine leukocyte esterase det ection by dipstickon 09-14-2021 Leukocyte esterase Test strip Ql (U) 500 /ul Negative [facility] Work Phone: Urine pHon 09-14-2021 pH (U) 6.0 [pH] 5.0 - 8.0 [facility] Work Phone: Urine sediment bacteria coun t by microscopy (number/high power field)on 09-14-2021 Bacteria LM.HPF (Urine sed) [#/Area] 3 /[HPF] None Seen [facility] Work Phone: Urine specific gravity measu rementon 09-14-2021 Specific gravity (U) [Rel density] 1.025 1.002-1.030 [facility] Work Phone: Urobilinogen Auto test strip Ql (U)on 09-14-2021 Urobilinogen Ql (U) Normal mg/dl Normal [facility] Work Phone: CT HEAD WO CONTRASTon 2021 CT HEAD WO CONTRAST Patient Name: JORDANA MEDEROS STUDY: CT HEAD WO CONTRAST; 05/02/2021 2:38 pm INDICATION: hit head 3 days ago, continued headache/tired . COMPARISON: CT of the head from 11/14/2013 ACCESSION NUMBER(S): [id number] ORDERING CLINICIAN: GISEL RUIZ TECHNIQUE: Noncontrast axial [...] as stated. This study was interpreted at [place], [place]. Electronically signed by: DELFINO FRYE DO Normal [facility] CT IMAGE RECONSTRUCTION 3D V OLUME and MIPon 05-02-2021 CT IMAGE RECONSTRUCTION 3D VOLUME and MIP Patient Name: JORDNAA MEDEROS STUDY: CT HEAD WO CONTRAST; 05/02/2021 2:38 pm INDICATION: hit head 3 days ago, continued headache/tired . COMPARISON: CT of the head from 11/14/2013 ACCESSION NUMBER(S): [id number] ORDERING CLINICIAN: GISEL RUIZ TECHNIQUE: Noncontrast axial [...] as stated. This study was interpreted at [place], [place]. Electronically signed by: DELFINO FRYE DO Normal [facility] HCG,URINEon 05-02-2021 Beta HCG ( test) Ql (U) Negative Normal Negative [facility] Comment on above: Performed By: #### H U #### [place] [address] Provider Note - ED v3on 02-0 Provider Note - ED v3 Provider Note: Chart Review: HISTORY OF PRESENTING ILLNESS JORDANA is a 15 year old Female and [...] Hg): 85 05-02-2021 13:41 PAST MEDICAL HISTORY ALLERGIES/INTOLERANCE S: No Known Allergies HEALTH HISTORY: No documented [...] in 2013. She had an evaluation by linter tender and neurology at [facility] at that time. Recommended follow-up with linter tender in 2 to 3 days for this [...] ill patient: no Electronic Signatures: Gisel Ruiz (FLARE MAKER-GARMENT MANUFACTURING SUPERVISOR) (Signed 02-May-2021 16:28) Authored: HPI, PMH, Results/Vital Signs, MDM/ED Course, Clinical Impression, Attestation, Chart Review, Scores Last Updated: 02-May-2021 16:28 by Gisel Ruiz (FLARE MAKER-[facility]) References: 1. Data Referenced From Triage - ED Peds 02-May-2021 13:41 Normal [facility] Risk Screen - PEDS Emergency on 05-02-2021 Risk Screen - PEDS Emergency Preferred Language: Preferred Language: Preferred Language for Discussing Health Care (patient/designee)Eng niall Advanced Directives: Advance Directive/DNRno Advance Directive Information Givenpatient/family declined Learning Assessment (Patient): Patient is Able to be Assessed for Learningyes Educational [id number] grade Factors Influence Readiness to Learnnone, ready to learn Factors Impact Ability to Learnnone Devices/Methods Used to Communicatenone Learning Preferencesaudio Cultural Considerationsnone Developmental Considerationsnone Pentecostal Considerationsnone Learning Assessment (Other Learner): Other learner [...] Admission Risk Screen: Significant IndicatorsComplete Electronic Signatures: Jordana Toth) (Signed 02-May-2021 13:55) Authored: Preferred Language, Advanced Directives, Learning Assessment (Patient), Learning Asessment (Other Learner), Family Violence PEDS, Fall: Pediatric Humpty Dumpty, Respiratory / Cough /TB, Smoking/Social History (Required 13 years or older) Last Updated: 02-May-2021 13:55 by Jordana Ttoh (KEN) [facility] Triage - ED Pedson 2 Triage - ED Peds Triage: Quick Triage: Are You no Are You Currently Breastfeedingno Chart Review: CHIEF COMPLAINT JORDANA MEDEROS is a 15 year old Female patient [...] (8 yrs & older) VAS Pain Ratin [place] Coma Scale Peds (2yrs to Adult): Best Eye Response: (E4) spontaneous Best Verbal Response: (V5) oriented Best Motor Response: (M6) obeys commands Micheal Coma Scale Score: 15 Cough Lasting Greater than 2 Weeks: no Allergies: no Mask Applied: no Patient has Homicidal Thoughts: no Acuity Level: 4 Peds Complaint Code ([facility] N/A [facility] ABCD PRIMARY ASSESSMENT Mental Status: active Respiratory: clear Hydration: normal Symptoms Are Negative For: anorexia, anxiety, blurred vision, congestion, eye pain, facial pain, nausea, neck pain and photophobia. RISK SCREEN [place] Suicide Risk Screen Risk Screen Not Applicable/Able [...] History: Past Medical History Reviewedyes Electronic Signatures: Jordana Toth (KEN) (Signed 02-May-2021 13:45) Authored: Quick Triage, Risk Screens, Travel History, Chart Review, Scores, Past Medical History Last Updated: 02-May-2021 13:45 by Jordana Toth (RN) Normal [facility] Func Panelon 07-17-2018 Albumin mass conc 4.6 g/dL Normal 3.4-5.0 [facility] Comment on above: Performed By: #### 2 [id number] #### ELISABETH [employer] [address] [place] [address] Albumin/Globulin mass ratio 1.9 {ratio} Normal 1.1-1.9 [facility] Comment on above: Performed By: #### 2 [id number] #### ELISABETH [employer] [address] [place] [address] Alk Phos 87 Int._Unit/L Normal 45-108 [facility] Comment on above: Performed By: #### 2 [id number] #### ELISABETH [employer] [address] [place] [address] 34460 ALT enzyme act/vol 14 Int._Unit/L Normal 3-28 [facility] Comment on above: Performed By: #### 2 [id number] #### ELISABETH [employer] [address] [place] [address] 58621 AST enzyme act/vol 20 Int._Unit/L Normal 9-24 [facility] Comment on above: Performed By: #### 2 [id number] #### ELISABETH [employer] [address] [place] [address]56 Bili Direct 0.08 mg/dL Normal 0.00-0.30 [facility] Comment on above: Performed By: #### 2 [id number] #### ELISABETH [employer] [address] [place] [address] 10538 Bili Indirect 0.37 mg/dL Normal [facility] Comment on above: Result Comment: No e stablished ranges available for the indirect bilirubin Performed By: #### 2 [id number] #### ELISABETH [employer] [address] [place] [address] 60575 Bili Total 0.45 mg/dL Normal 0.00-0.90 [facility] Comment on above: Performed By: #### 2 [id number] #### ELISABETH [employer] [address] [place] [address] Globulin mass conc (S) 2.0 g/dL Normal 2.0-4.0 [facility] Comment on above: Performed By: #### 2 [id number] #### ELISABETH [employer] [address] [place] [address] Protein mass conc 7.0 g/dL Normal 6.2-7.7 [facility] Comment on above: Performed By: #### 2 [id number] #### ELISABETH [employer] [address] [place] [address] Culture, urine Bacteria identified Cx Nom (U) Mixed Gram Pos & Gram Neg Org [facility] Work Phone: Vital Signs Date Time Vital Sign Value Performing Clinician Facility 09-20-2024 08:18-0400 Body height 160.02 cm Jessy Logan NP-C Work Phone: [facility] 09-20-2024 08:11-0400 Body mass index (BMI) [Ratio] 33.8 kg/m2 Jessy Logan MELT DOWN FURNACE OPERATOR-C Work Phone: [facility] 09-20-2024 08:11-0400 Body weight 86.63 kg Jessy Logan NP-C Work Phone: [facility] 09-20-2024 08:11-0400 Diastolic blood pressure 78 mm[Hg] Jessy Logan NP-C Work Phone: [facility] 09-20-2024 08:11-0400 Systolic blood pressure 120 mm[Hg] Jessy Logan MELT DOWN FURNACE OPERATOR-C Work Phone: [facility] 09-06-2024 06:40-0400 Body temperature 97.8 [degF] Jessy Logan MELT DOWN FURNACE OPERATOR-C Work Phone: [facility] 09-06-2024 06:40-0400 Diastolic blood pressure 84 mm[Hg] Jessy Logan NP-C Work Phone: [facility] 09-06-2024 06:40-0400 Heart rate 72 /min Jessy Logan MELT DOWN FURNACE OPERATOR-C Work Phone: [facility] 09-06-2024 06:40-0400 Respiratory rate 16 /min Jessy Logan MELT DOWN FURNACE OPERATOR-C Work Phone: [facility] 09-06-2024 06:40-0400 SaO2% (BldA) [Mass fraction] 99 % Jessy Logan MELT DOWN FURNACE OPERATOR-C Work Phone: [facility] 09-06-2024 06:40-0400 Systolic blood pressure 129 mm[Hg] Jessy Logan MELT DOWN FURNACE OPERATOR-C Work Phone: [facility] 09-06-2024 05:24-0400 Body height 160.02 cm Jessy Logan MELT DOWN FURNACE OPERATOR-C Work Phone: [facility] 09-06-2024 05:24-0400 Body mass index (BMI) [Ratio] 34.2 kg/m2 Jessy Logan MELT DOWN FURNACE OPERATOR-C Work Phone: [facility] 09-06-2024 05:24-0400 Body weight 87.7 kg Jessy Logan MELT DOWN FURNACE OPERATOR-C Work Phone: [facility] 06-01-2024 16:51-0500 Body mass index (BMI) [Ratio] 35.89 kg/m2 April Praisler-Wood FLARE MAKER.GARMENT MANUFACTURING SUPERVISOR Work Phone: [facility] 06-01-2024 16:51-0500 Body temperature 98.49 [degF] April Praisler-Wood FLARE MAKER.GARMENT MANUFACTURING SUPERVISOR Work Phone: [facility] 06-01-2024 16:51-0500 Body weight 89 kg April Praisler-Wood FLARE MAKER.GARMENT MANUFACTURING SUPERVISOR Work Phone: [facility] 06-01-2024 16:51-0500 Diastolic blood pressure 72 mm[Hg] April Praisler-Wood FLARE MAKER.GARMENT MANUFACTURING SUPERVISOR Work Phone: [facility] 06-01-2024 16:51-0500 Heart rate 100 /min April Praisler-Wood FLARE MAKER.GARMENT MANUFACTURING SUPERVISOR Work Phone: [facility] 06-01-2024 16:51-0500 Respiratory rate 16 /min April Praisler-Wood FLARE MAKER.GARMENT MANUFACTURING SUPERVISOR Work Phone: [facility] 06-01-2024 16:51-0500 SaO2% (BldA) [Mass fraction] 96 % April Praisler-Wood FLARE MAKER.GARMENT MANUFACTURING SUPERVISOR Work Phone: [facility] 06-01-2024 16:51-0500 Systolic blood pressure 122 mm[Hg] April Praisler-Wood FLARE MAKER.GARMENT MANUFACTURING SUPERVISOR Work Phone: [facility] 08-05-2023 03:48-04[address] Pressure Cuff Size DR JUD ARIAS MD [facility] 08-05-2023 03:48-[address] JUD ARIAS MD [facility] 08-05-2023 03:48-[address] JUD ARIAS MD [facility] 08-05-2023 03:48-0400 Body height 157.[address] JUD ARIAS MD [facility] 08-05-2023 03:48-0400 Body temperature 96.98 [degF] DR JUD ARIAS MD [facility] 08-05-2023 03:48-0400 Body weight 77.[address] JUD ARIAS MD [facility] 08-05-2023 03:48-0400 Diastolic Blood Pressure Non-Invasive 94 mm[Hg] DR JUD ARIAS MD [facility] 08-05-2023 03:48-0400 Heart rate 90 /min DR JUD ARIAS MD [facility] 08-05-2023 03:48-0400 Reason For Taking VItal Signs DR JUD ARIAS MD [facility] 08-05-2023 03:48-0400 Respiratory rate 16 /min DR JUD ARIAS MD [facility] 08-05-2023 03:48-0400 Systolic Blood Pressure Non-Invasive 136 mm[Hg] DR JUD ARIAS MD [facility] 06-12-2023 10:03-0400 Body height 157.5 cm Jebbitts FLARE MAKER.CNM Work Phone: [facility] 06-12-2023 10:03-0400 Body weight 80.11 kg Yuki Airwootts FLARE MAKER.CNM Work Phone: [facility] 06-12-2023 10:03-0400 Diastolic blood pressure 66 mm[Hg] Yuki Plotts FLARE MAKER.CNM Work Phone: [facility] 06-12-2023 10:03-0400 Systolic blood pressure 110 mm[Hg] Yuki Plotts FLARE MAKER.CNM Work Phone: [facility] 09-14-2021 07:49-0400 Body height 162.56 cm RYAN DVAIS Work Phone: [facility] Work Phone: 09-14-2021 07:49-0400 Body mass index (BMI) [Percentile] Per age and sex 70.6 % RYAN DAVIS Work Phone: [facility] Work Phone: 09-14-2021 07:49-0400 Body mass index (BMI) [Ratio] 23.3 kg/m2 RYAN DAVIS Work Phone: [facility] Work Phone: 09-14-2021 07:49-0400 Body temperature 98.7 [degF] RYAN DAVIS Work Phone: [facility] Work Phone: 09-14-2021 07:49-0400 Body weight 61.68 kg PA Danilo Seo PA Work Phone: [facility] Work Phone: 09-14-2021 07:49-0400 Diastolic blood pressure 70 mm[Hg] PA Danilo Seo PA Work Phone: [facility] Work Phone: 09-14-2021 07:49-0400 Heart rate 106 /min PA Danilo Seo PA Work Phone: [facility] Work Phone: 09-14-2021 07:49-0400 Respiratory rate 14 /min PA Danilo Seo PA Work Phone: [facility] Work Phone: 09-14-2021 07:49-0400 SaO2% (BldA) [Mass fraction] 99 % PA Danilo Seo PA Work Phone: [facility] Work Phone: 09-14-2021 07:49-0400 Systolic blood pressure 108 mm[Hg] PA Danilo Seo PA Work Phone: [facility] Work Phone: 05-02-2021 18:50-0500 Diastolic blood pressure 69 mm[Hg] Aurelia Audrey Other Phone: [facility] 05-02-2021 18:50-0500 Heart rate 83 /min Aurelia Audrey Other Phone: [facility] 05-02-2021 18:50-0500 Respiratory rate 16 /min Aurelia Audrey Other Phone: [facility] 05-02-2021 18:50-0500 SaO2% (BldA) [Mass fraction] 100 % Aurelia Audrey Other Phone: [facility] 02-02-2022 18:50-0500 Systolic blood pressure 122 mm[Hg] Aurelia Ventura Other Phone: [facility] 05-02-2021 15:41-0500 Body temperature 98.06 [degF] Aurelia Ventura Other Phone: [facility] Encounters Encounter Date Encounter Type Care Provider Facility Start: 01-18-2025 End: 01-18-2025 ambulatory Jessy Logan MELT DOWN FURNACE OPERATOR Facility:[facility] Start: 12-09-2024 End: 12-09-2024 ambulatory JESSY L LOGAN FLARE MAKER-GARMENT MANUFACTURING SUPERVISOR Facility:[facility] Start: 12-09-2024 End: 12-09-2024 Patient encounter procedure DOMO GOMEZ MD [facility] Start: 12-07-2024 End: 12-07-2024 ambulatory JESSYERICA LOGAN FLARE MAKER-GARMENT MANUFACTURING SUPERVISOR Facility:[facility] Start: 12-07-2024 End: 12-07-2024 Patient encounter procedure DOMO GOMEZ MD [facility] Start: 12-06-2024 End: 12-10-2024 ambulatory JESSYERICA LOGAN FLARE MAKER-GARMENT MANUFACTURING SUPERVISOR Facility:[facility] Start: 12-06-2024 End: 12-10-2024 Outreach Lab DOMO GOMEZ MD [facility] Start: 10-06-2024 ambulatory JESSY OLIVIER Y FLARE MAKER-GARMENT MANUFACTURING SUPERVISOR Facility:[facility] Start: 09-23-2024 End: 09-23-2024 ambulatory Jessy Logan MELT DOWN FURNACE OPERATOR-C Work Phone: -Ultrasound [facility] Start: 09-23-2024 End: 09-23-2024 Patient encounter procedure Griselda Lora MELT DOWN FURNACE OPERATOR-C -Ultrasound [facility] Work Phone: Start: 09-23-2024 End: 09-23-2024 ambulatory Jessy Logan MELT DOWN FURNACE OPERATOR Facility:[facility] Start: 09-20-2024 End: 09-20-2024 ambulatory Jessy Logan MELT DOWN FURNACE OPERATOR-C Work Phone: -Laboratory Specimen Start: 09-20-2024 End: 09-20-2024 Patient encounter procedure Griselda BRAYC -Laboratory Specimen Work Phone: Start: 09-20-2024 End: 09-20-2024 Patient encounter procedure Griselda Lora NP-C -[facility] Start: 09-20-2024 End: 09-20-2024 Patient encounter status Griselda Lora MELT DOWN FURNACE OPERATOR-C [facility] Start: 09-20-2024 End: 09-20-2024 ambulatory Jessy Logan MELT DOWN FURNACE OPERATOR-C Work Phone: [facility] Work Phone: Start: 09-20-2024 End: 09-20-2024 ambulatory Jessy Logan MELT DOWN FURNACE OPERATOR Facility:[facility] Start: 09-17-2024 ambulatory JESSY Trammell FLARE MAKER-GARMENT MANUFACTURING SUPERVISOR Facility:[facility] Start: 09-06-2024 End: 09-06-2024 Emergency department patient visit Jessy Logan MELT DOWN FURNACE OPERATOR-C Work Phone: -Emergency Department Work Phone: Start: 08-19-2024 End: 08-19-2024 ambulatory JESSY LOGAN FLARE MAKER-GARMENT MANUFACTURING SUPERVISOR Facility:[facility] Start: 07-29-2024 End: 08-02-2024 ambulatory JESSY L DESMOND FLARE MAKER-GARMENT MANUFACTURING SUPERVISOR Facility:[facility] Start: 07-15-2024 End: 07-15-2024 ambulatory JESSY L LOGAN FLARE MAKER-GARMENT MANUFACTURING SUPERVISOR Facility:[facility] Start: 06-23-2024 End: 06-23-2024 ambulatory JESSY L DESMOND FLARE MAKER-GARMENT MANUFACTURING SUPERVISOR Facility:[facility] Start: 06-02-2024 End: 08-02-2024 Follow-up encounter Raffi Trejo APRN.GARMENT MANUFACTURING SUPERVISOR Work Phone: [facility] Start: 06-01-2024 End: 06-01-2024 ambulatory JESSY LOGAN Facility:[facility] Start: 06-01-2024 End: 06-01-2024 Office outpatient visit 15 minutes April MontesBethanyAce FLARE MAKER.GARMENT MANUFACTURING SUPERVISOR Work Phone: [facility] Comment on above: Dysuria (Primary Dx) ; Pelvic pain Start: 09-18-2023 End: 09-18-2023 ambulatory JESSYERICA LOGAN FLARE MAKER-GARMENT MANUFACTURING SUPERVISOR Facility: Start: 08-05-2023 End: 08-05-2023 Emergency department patient visit DR JUD ARIAS MD [facility] Start: 06-12-2023 End: 06-12-2023 Patient encounter procedure Yuki Castillo FLARE MAKER.CNM Work Phone: OB/Gynecology Comment on above: Encounter for gyneco logical examination (general) (routine) without abnormal findings (Primary Dx); Patient desires Start: 06-12-2023 End: 06-12-2023 Patient encounter status Yuki Castillo FLARE MAKER.CNM Work Phone: [facility] Start: 06-12-2023 End: 06-12-2023 ambulatory YUKI CASTILLO Facility:[facility] Start: 06-12-2023 Encounter for gynecological examination (general) (routine) without abnormal findings YUKI CASTILLO [facility] Start: 04-30-2022 End: 04-30-2022 ambulatory TATIANA MACEDO [facility] Start: 03-07-2022 End: 03-07-2022 Emergency department patient visit Vinny Sanchez Facility:[id number] Start: 09-14-2021 End: 09-14-2021 Patient encounter procedure RYAN DAVIS Work Phone: [facility]-Laboratory, Specimen Start: 09-14-2021 End: 09-14-2021 Patient encounter procedure RYAN DAVIS Work Phone: [facility] Start: 05-02-2021 End: 05-02-2021 Emergency department patient visit Gisel Joseph [facility] 15 Start: 07-17-2018 End: 07-18-2018 Patient encounter procedure José Farnsworth Facility:[facility] Procedures Date Procedure Procedure Detail Performing Clinician Start: 09-23-2024 Pelvic echography Christie Logan MELT DOWN FURNACE OPERATOR-C Work Phone: Start: 09-20-2024 Liquid based cervica l cytology screening Jessy Desmond MELT DOWN FURNACE OPERATOR-C Work Phone: Comment on above: NEGATIVE FOR INTRAEP ITHELIAL LESION OR MALIGNANCY. This liquid based Th inPrep(R) pap test was screened withthe use of an image guided system. The HPV DNA reflex c riteria were not met with this specimenresult therefore, no HPV testing was performed.Performed at: [facility] [id number] [place], [place] [id number] Director: Cam Pan MD, Phone: [phone] at: [facility] - [facility] [id number] Director: Valerie Ernst MD, Phone: [phone] Start: 09-06-2024 Urine culture Jessy monroe MELT DOWN FURNACE OPERATOR-C Work Phone: Start: 09-06-2024 Urnls dip stick/tabl et reagent auto microscopy Jessy Logan MELT DOWN FURNACE OPERATOR-C Work Phone: Start: 06-01-2024 Urnls dip stick/tabl et rgnt auto w/o microscopy Gisell Smith FLARE MAKER.GARMENT MANUFACTURING SUPERVISOR Work Phone: Urine culture RYAN DAVIS Work Phone: Plan of Treatment Date Care Activity Detail Author Start: 11-06-2025 Urine microalbumin profile DTaP,Tdap,Td Vaccine (7 - Td or Tdap) [facility] Start: 09-20-2024 Liquid based cervica l cytology screening [facility] Start: 09-06-2024 Bacteria identified in Urine by Culture Urine Culture [facility] Start: 09-06-2024 End: 09-06-2024 [facility] Start: 06-30-2024 Screening for malign ant neoplasm of cervix Cervical Cancer Screening [facility] Start: 11-30-2023 Covid-19 Vaccine ( season) Covid-19 Vaccine ( season) [facility] Start: 11-30-2023 Influenza vaccination Influenza Vacc ine (#1) [facility] Start: 03-31-2023 Depression Assessment Depression Ass essment [facility] Start: 11-29-2022 Covid-19 Vaccine ( season) Covid-19 Vaccine ( season) [facility] Start: 11-29-2022 Influenza vaccination Influenza Vacc ine (#1) [facility] Start: 06-30-2021 Anxiety Screening Anxiety Screening [facility] Start: 06-30-2021 Depression Screening Depression Scre ening [facility] Start: 06-30-2021 GC (Gonorrhea) Screening () GC (Gonorrhea) Screening () [facility] Start: 06-30-2021 Hepatitis C screening Hepatitis C Sc reening [facility] Start: 06-30-2021 HIV screening HIV Screening [facility] Start: 06-30-2021 Screening for Chlamy phillip trachomatis Chlamydia Screening () [facility] Start: 06-30-2017 Peds To Adult Transition Annual Assessment Peds To Adult Transition Annual Assessment [facility] Start: 2015 Peds To Adult Transition Initial Discussion Peds To Adult Transition Initial Discussion [facility] Bacteria identified in Urine by Culture BACTERIAL CULTURE, URINE Microbiology Routine Pelvic pain Dysuria Ordered: 06/01/2024 [facility] Work Phone: Comment on above: Ordered: 06/01/2024 Liquid based cervica l cytology screening [facility] Path report.final Dx Spec [facility] Patient Education ED MENSTRUAL CRAMPING [facility] Work Phone: Patient referral [facility] Work Phone: Urinalysis complete panel - Urine URINALYSIS, WITH MICROSCOPIC Lab Routine Pelvic pain Dysuria Ordered: 06/01/2024 [facility] Comment on above: Ordered: 06/01/2024 Urine culture [facility] [place] Pelvis [facility] Immunizations Immunization Date Immunization Notes Care Provider Giovani lane 02-28-2020 meningococcal B vaccine, recombinant, OMV, adjuvanted DOMO GOMEZ MD Maritza [facility] 01-25-2020 influenza virus vaccine, unspecified formulation Yuki Castillo FLARE MAKER.CNM Work Phone: [facility] 01-22-2019 influenza virus vaccine, unspecified formulation DOMO GOMEZ MD [facility] 01-22-2019 varicella virus vaccine KIARA GOMEZ MD [facility] 11-19-2017 hepatitis A vaccine, pediatric dosage, unspecified formulation DOMO GOMEZ MD [facility] 01-20-2017 influenza virus vaccine, unspecified formulation DOMO GOMEZ MD [facility] 11-18-2016 hepatitis A vaccine, pediatric dosage, unspecified formulation DOMO GOMEZ MD [facility] 05-13-2016 Human Papillomavirus 9-valent vaccine Yuki Plotts FLARE MAKER.CNM Work Phone: [facility] 05-13-2016 Human Papillomavirus Cristina GOMEZ MD [facility] 01-05-2016 Human Papillomavirus 9-valent vaccine Yuki Plotts FLARE MAKER.CNM Work Phone: [facility] 01-05-2016 Human Papillomavirus Dakshaval DOMO GOMEZ MD [facility] 11-07-2015 Human Papillomavirus 9-valent vaccine Yuki Plotts FLARE MAKER.CNM Work Phone: [facility] 11-07-2015 Human Papillomavirus Cristina GOMEZ MD [facility] 11-07-2015 meningococcal polysaccharide (groups A, C, Y and W-135) diphtheria toxoid conjugate vaccine (MCV4P) DOMO GOMEZ MD [facility] 11-07-2015 tetanus toxoid, redu kwame diphtheria toxoid, and acellular pertussis vaccine, adsorbed DOMO GOMEZ MD [facility] 07-11-2008 measles/mumps/rubell a virus vaccine DOMO GOMEZ MD [facility] 07-11-2008 poliovirus vaccine, inactivated DOMO GOMEZ MD [facility] 07-02-2004 haemophilus influenz ae type b conjugate and Hepatitis B vaccine DOMO GOMEZ MD [facility] 07-02-2004 measles/mumps/rubell a virus vaccine DOMO GOMEZ MD [facility] 01-09-2004 poliovirus vaccine, inactivated DOMO GOMEZ MD [facility] 2003 haemophilus influenz ae type b conjugate and Hepatitis B vaccine DOMO GOMEZ MD [facility] 2003 poliovirus vaccine, inactivated DOMO GOMEZ MD [facility] 2003 haemophilus influenz ae type b conjugate and Hepatitis B vaccine DOMO GOMEZ MD [facility] 2003 poliovirus vaccine, inactivated DOMO GOMEZ MD [facility] Payers Date Payer Category Payer Self-pay 2023 Unknown [id number] 2023 Private Health Insurance [id number] 2022 Private Health Insurance [id number] 2021 Private Health Insurance [id number] 2018 Unknown 2003 Unknown [id number] 2.16.8 40.1.300707.3.579.2.1069 2003 Unknown [id number] 2.16. 840.1.776109.3.579.2.479 2003 Unknown [id number] 2.16.8 40.1.303150.3.579.2.627 2003 Unknown [id number] 2.16.8 40.1.974645.3.579.2.627 2003 Unknown [id number] 2.16. 840.1.990264.3.579.2.627 2003 Unknown [id number] 2.16. 840.1.598561.3.579.2.627 2003 Unknown [id number] 2.16. 840.1.174610.3.579.2.627 2003 Unknown [id number] 2.16. 840.1.947168.3.579.2.627 2003 Unknown [id number] 2.16. 840.1.319635.3.579.2.627 2003 Unknown [id number] 2.16.8 40.1.843147.3.579.2.627 2003 Unknown [id number] 2.16.8 40.1.194175.3.579.2.627 2003 Unknown [id number] 2.16.8 40.1.677084.3.579.2.627 2003 Unknown [id number] 2.16.8 40.1.934789.3.579.2.627 1971 Unknown [id number] 2.16.84 0.1.009318.3.579.2.717 1971 Unknown [id number] 2.16.8 40.1.052427.3.579.2.1069 Unknown [id number] Unknown [id number] 2.16.8 40.1.889584.3.579.2.462 Unknown [id number] 2.16.8 40.1.015045.3.579.2.462 Unknown [id number] 2.16.8 40.1.205527.3.579.2.462 Unknown [id number] 2.16.8 40.1.479075.3.579.2.462 Unknown [id number] 2.16.8 40.1.084943.3.579.2.462 Social History Date Type Detail Facility [facility] Tobacco smoking consumption unknown [facility] Start: 2005 Sex Assigned At Female A [facility] Start: 06-12-2023 End: 09-18-2023 Tobacco smoking status NHIS Never smoked tobacco [facility] Start: 06-12-2023 Tobacco use and exposure Smokeless tobacco non-user [facility] Start: 06-12-2023 Alcohol intake Lifetime non-d jaky (finding) [facility] Start: 06-12-2023 History of Social function [facility] Start: 06-12-2023 Tobacco use panel [facility] National Score (1-100), lower number is lower risk 52 [facility] Start: 2003 Sex Assigned At Not on file C [facility] Tobacco smoking status [facility] Sexual Orientation Heterosexual (finding) [facility] Start: 08-05-2023 Sex Female (finding) [facility] NEGATED: Highlighted row Not [facility] Functional Status Date Assessment Result Facility 08-05-2023 Functional Status Independent [facility] 08-05-2023 Functional Status Awake, Lights dimmed, Resting [facility] Mental Status Date Assessment Result Facility 08-05-2023 Mental Status Orientation Oriented x 4 [facility] Clinical Notes 06-12-2023 to 09-24-2024 Note Date & Type Note Facility 09-24-2024 Radiology Diagnostic study note [facility] Imaging Services [address], [place] [address] Pelvic w/ Transvaginal MR#: [id number] Acct: [id number] Name: JORDANA MEDEROS Rep #: [id number] 1 : 2005 F 19 From: Roverto Echeverria MD PCP: AGUILAR Simons Status: REG CL I Study:Pelvic w/ Transvaginal Date of Exam: 09/23/24 Exam# [id number] Ordering Dr: Griselda Lora NP-Chiki PROCEDURE: PELVIC W/ TRANSVAGINAL REASON FOR EXAM: INFERTILITY X 1 YEAR TECHNIQUE: PELVIC W/ TRANSVAGINAL COMPARISON: None FINDINGS: LMP: September 03, 2024 Measurements: Uterus: 7.5 cm x 4.1 cm x 2.9 cm with a volume of 47.37 mL Endometrial Thickness: 8 mm. It is trilaminar in appearance. Right Ovary: 1.8 cm x 2.5 cm x 2.7 cm with a volume of 6.31 mL. Left Ovary: 1.6 cm x 1.8 cm x 2.6 cm with a volume of 3.75 mL. TRANSABDOMINAL: Uterus: Normal size, myometrial echotexture, and contour. Endometrium: Unremarkable. Right ovary: Normal size and echotexture. Left ovary: Normal size and echotexture. Other: No large pelvic mass identified. Transvaginal sonography was performed to better visualize the endometrium. TRANSVAGINAL: Uterus: Anteverted. Normal contour and myometrial echotexture. Endometrium: Normal echotexture. Right ovary: Normal size and echotexture. Left ovary: Normal size and echotexture. Other adnexal findings: None. Cul-de-sac: No free intraperitoneal fluid identified. Tenderness: No tenderness US/Pelvic w/ Transvaginal IMPRESSION: NORMAL TRANSABDOMINAL AND TRANSVAGINAL PELVIC ULTRASOUND. 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: Signed [facility] 09-20-2024 Evaluation note Diagnosis Onset Date Resolution Infertility management acute Ju 2024 7:58am Encounter for routine gynecological examination noneactive September 20, 2024 7:58am [facility] Work Phone: [phone] 170-819806-09-2025 Discharge summary [facility] Medical Records Department [address] [place] [address] Emergency Department Summary 09/06/24 MR#: [id number] Acct: [id number] Name: JORDANA MEDEROS Rep #:[id number] 6 : 2005 19 From: Alfredo aErly DO PCP: AGUILAR Simons Status:REG ER Location: ED HPI History of Present Illness Chief Complaint: Abd Pain Narrative Narrative: Patient is a 19-year-old female with past medical history of recent diagnosis ofdiabetes on metformin who presents to the emergency department the chief complaint of menstrual cramps. Patient states that in the middle the night she woke up and noted that she started menstrual cycle was having significant pain she tried ibuprofen around midnight and then she tried Midol around 3 AM withoutany relief therefore she came here for further evaluation management. She states that she is unsure if this is related to her diabetes or not. Patient denies any [facility] Medical History Diabetes Home Medications ?Medication ?Instructions ?Recorded ?Last Taken ?Type metformin 500 mg tablet,extended 2,000 mg PO DAILY 12/23 Unknown History release 24 hr ondansetron 4 mg disintegrating 4 mg PO Q6H PRN nausea and 09/06/24 Unknown Rx tablet vomiting #20 tabs Allergy/AdvReac Type Severity Reaction Status Date / Time No Known Allergies Allergy Verified 09/06/24 05:25 Social History Smoking Status: Never smoker ROS ROS ED ROS Narrative Constitutional: Denies fevers, chills, headaches Abdomen: Complains of abdominal pain as noted above denies nausea vomit diarrhea : Denies any painful urination, hematuria, polyuria Neurological: Denies any numbness, wheeze, tingling Musculoskeletal: Denies back pain Skin: Denies rashes or lesions EXAM Physical Exam Narrative Exam Narrative: General: Patient lying in bed rest comfortably did not appear to be acute distress Head: Atraumatic, normocephalic Eyes: PERRL bilaterally, EOMI bilaterally, no conjunctival injection noted Neck: Soft, supple, trachea midline Cardiovascular: Regular rate and rhythm Abdomen: Soft, nondistended, mild tenderness to palpation over the suprapubic region in the right lower and left lower quadrants no rebound or guarding on exam Extremities: +5/5 strength noted in the bilateral upper and lower extremities Neurological: Patient follow commands that she was at [facility] the year is 2024 Skin: Warm, dry, intact no rashes or lesions noted Const Vital Signs: 09/06/24 05:24 Temperature 98.4 F Temperature Source Oral Pulse Rate 98 Respiratory Rate 16 Blood Pressure 153/93 H Blood Pressure Mean 113 Pulse Ox 100 Oxygen Delivery Method Room Air MDM MDM MDM Narrative Medical decision making narrative: Patient is a 19-year-old female who presents to the emergency department with a chief complaint of period cramps. On the differential diagnose includes but notlimited to menstrual cycle, ruptured cyst, UTI, , ectopic . Once workup is obtained reviewed she will be reevaluated. Patient be given IV fluids and Toradol. On reevaluation the patient she is feeling much improved she would like to go home at this point time. Patient was advised to rotate Tylenol and ibuprofen [id number] for pain control. She was encouraged to use Zofran sent to herpharmacy as needed for nausea. She was encouraged to follow-up with her doctor and return with any other concerns. She is agreeable this plan as well as significant other bedside all question concerns answered she was discharged homein stable condition Lab Data Labs: Laboratory Results - last 24 hr 09/06/24 09/06/24 05:50 05:57 Urine Color Yellow Urine Clarity Clear Urine pH 6.5 Ur Specific [place] 1.010 Urine Protein 15 H Urine Glucose (UA) Normal Urine Ketones Negative Urine Occult Blood 250 H Urine Nitrite Negative Urine Bilirubin Negative Urine Urobilinogen Normal Ur Leukocyte Esterase Negative Urine RBC 0 SEEN Urine WBC 0 SEEN Ur Squamous Epith Cells 0-5 SEEN Urine Bacteria 0 SEEN Urine Mucus 0 SEEN Urine Test Negative POC Glucose 127 H Discharge Plan Triage Chief Complaint: Abd Pain ED Provider: Alfredo Early Dx/Rx/DC Orders Clinical Impression: Menstrual cramp Prescriptions: New ondansetron 4 mg tablet,disintegrating 4 mg PO Q6H PRN (Reason: nausea and vomiting) Qty: 20 0RF No Action metformin 500 mg tablet extended release 24 hr 2,000 mg PO DAILY Primary Care Provider: Jessy Logan NP Referrals: Jessy Logan MELT DOWN FURNACE OPERATOR, MELT DOWN FURNACE OPERATOR-C [Primary Care Provider] - Activity Restrictions/Additional Instructions: Follow-up with your doctor in the outpatient setting. Return with worsening symptoms or any concerns. Your urine did not show evidence of infection your glucose was normal and your test wasnegative. Rotate Tylenol and ibuprofen [id number] when you do this you can take something every 3 hours. Max dose Tylenol is 4000 mg in 24 hours max dose of ibuprofen 3200 mg in24 hours. Print Language: [place] Disposition Disposition: Home, Self Care What to do if you have Problems For any increased pain, shortness of breath, bleeding, nausea or vomiting, chestpain, or any unexpected problems, contact your Primary Care Provider. Call [facility] ([phone]) or report tothe closest Emergency Room. Call 911 if necessary. 09/06/24 3924 Cosigner Signature (if applicable): CC: AGUILAR Logan ~ Signed [facility]05-03-2025 Note. MICRO - Microbiology PROCEDURE: Urine Culture [*1] [...] Locations *1: This test was performed at: [facility], [address] [place] [address], [phone] , [facility]03-04-2025 Instructions* Patient Instructions* Chayo Mantilla - 06/01/2024 5:10 PM EST [...] culture results. 2. Pelvic pain - ICD9: [id number], ICD10: R10.2 - UA Dip unremarkable for signs of infection - will send urine out for Urinalysis and UAC. - UA DIP, URINE (POC) - BACTERIAL CULTURE, URINE - URINALYSIS, WITH MICROSCOPIC - will reach out to patient regarding results and will prescribe antibiotic treatment if warranted based on culture results. [facility] History of Present illness Narrative* Simon-April Bello APRN.GARMENT MANUFACTURING SUPERVISOR - 06/01/2024 5:00 PM EST [facility] Subjective Jordana Mederos is a 18 year old female. HPI Pt is a 18 y/o female who presents with dysuria, increased frequency, pelvic pain and back pain x 5days. No reports of abnormal color or odor [...] and frequency. Negative for difficulty urinating, hematuria andmenstrual problem. Musculoskeletal: Positive for back pain. Objective [...] culture results. 2. Pelvic pain - ICD9: [id number], ICD10: R10.2 - UA Dip unremarkable for signs of infection - will send urine out for Urinalysis and UAC. - UA DIP, URINE (POC) - BACTERIAL CULTURE, URINE - URINALYSIS, WITH MICROSCOPIC - will reach out to patient regarding results and will prescribe antibiotic treatment if warranted based on culture results. Chayo Mantilla TEACHING PROVIDER (Physician/PA/FLARE MAKER) NOTE OF PERSONAL INVOLVEMENT IN CARE: I have personally seen and examined the patient and performed the medical decision-making components. I have reviewed the Advanced Practice Registered Nurse (FLARE MAKER) Student's documentation and verified the findings in the note as written. Any additions or changes are noted in bold/italics. Signature: April Villegas Date: 06/01/2024 Time: 5:45 PM documented in [facility] NoteHNO ID: [id number] Author: APRIL VILLEGAS APRN.GARMENT MANUFACTURING SUPERVISOR Service: ? Author Type: Nurse Practitioner Type: Progress Notes Filed: 06/01/2024 17:49 Note Text: [facility] Subjective Jordana Mederos is a 18 year old female. [...] culture results. 2. Pelvic pain - ICD9: [id number], ICD10: R10.2 - UA Dip unremarkable for signs of infection - will send urine out for Urinalysis and UAC. - UA DIP, URINE (POC) - BACTERIAL CULTURE, URINE - URINALYSIS, WITH MICROSCOPIC - will reach out to patient regarding results and will prescribe antibiotic treatment if warranted based on culture results. Chayo Mantilla TEACHING PROVIDER (Physician/PA/FLARE MAKER) NOTE OF PERSONAL INVOLVEMENT IN CARE: I have personally seen and examined the patient and performed the medical decision-making components. I have reviewed the Advanced Practice Registered Nurse (FLARE MAKER) Student's documentation and verified the findings in the note as written. Any additions or changes are noted in bold/italics. Signature: April Villegas Date: 06/01/2024 Time: 5:45 [facility]05-07-2024 Hospital Discharge instructions Patient Education 08/05/2023 05:15:01 Flank Pain, Uncertain Cause Flank Pain, Uncertain Cause The flank is the area between your upper abdomen and your back. Pain there is often caused by a problem with your kidneys. It might be a kidney infection or a kidney stone. Other causes of flank paininclude spinal arthritis, a pinched nerve from a back injury, or a back muscle strain or spasm. The cause of your flank pain is not certain. You may need other tests. Home care Follow these tips when caring for yourself at home: You may use acetaminophen or ibuprofen to control pain, unless your health care provider prescribedanother medicine. If you have chronic liver or [...] You might find that alternating ice and heatworks well. Use the method that feels the [...] worse Numbness or weakness in a leg 6864-[address] [employer]. [address] [place] [address]. All rights reserved. This information is not intended as a substitute for professional medical care. Always follow yourhealthcare professional's instructions. Follow Up Care 08/05/2023 03:40:56 With:JOSHUA MCLAIN Address: [address] [facility] [place] [address]- [phone] Business (1) When:2-4 days Comments:Use Tylenol, Toradol for pain, finish your antibiotic, return or follow-up with your doctor if any worsening or concerning symptoms. With:Follow up with primary care provider Address:Unknown When:2-4 days [facility] 05-07-2024 Note Discharge Instructions Thank you for allowing [facility] to assist you with your healthcare needs. The following is importantdischarge information regarding your hospital visit. Diagnosis from [...] antibiotic, return or follow-up with your doctor ifany worsening or concerning symptoms. Where: [address] [facility] [place] [address]- [phone] Business (1) Follow Up with Follow up with primary care provider When Within 2-4 days Allergies No Known Medication Allergies Medications Please ask your primary doctor or pharmacist before taking any other medication not listed, including over the counter drugs, herbal medications, vitamins and or supplements as they may interact withyour home medications. What How Much When Instructions [...] nonsteroidal anti-inflammatory drug (NSAID) that is used short- term (5 days or less)to treat moderate to severe pain. Ketorolac may [...] your doctor tells you to. Taking an NSAIDduring the last 20 weeks of can cause serious heart or kidney problems in the unborn babyand possible complications with your . Tell your [...] reaction (fever, sore throat, burning in your eyes,skin pain, red or purple skin rash that [...] feet or ankles, feeling tired or short ofbreath; o low red blood cells (anemia)--pale skin, [...] may report side effects to FDA at [phone]-KKS-[phone]. What other drugs will affect ketorolac? Ask [...] drugs may affect ketorolac, including prescription and pvkd-oxh-valjcxg medicines, vitamins, and herbal products. Not all [...] to ensure that the information provided by [employer]') is accurate, up-to-date, and complete, but no guarantee is made to that effect. Drug information contained herein may be time sensitive. [employer] information has been compiled for use by healthcare practitioners and consumers in the [place] and therefore [employer] does not warrant that uses outside of the [place] are appropriate, unless specifically indicated otherwise. [employer] drug information does not endorse drugs, diagnose patients or recommend therapy. [employer] drug information isan informational resource designed to assist licensed healthcare practitioners in caring for their p atients and/or to serve consumers viewing this service as a supplement to, and not a substitute for, the expertise, skill, knowledge and judgment of healthcare practitioners. The absence of a warningfor a given drug or drug combination in no way should be construed to indicate that the drug or drug combination is safe, effective or appropriate for any given patient. [facility] does not assume any responsibility for any aspect of healthcare administered with the aid of information [facility] provides. The information contained herein is not intended to cover all possible uses, directions, precautions, warnings, drug interactions, allergic reactions, or adverse effects. If you have questions about the drugs you are taking, check with your doctor, nurse or pharmacist. Copyright 4521-8606 [employer]. Version: 02.28. Revision Date: 10/31/2022. Education Materials Flank Pain, Uncertain Cause The flank is the area between your upper abdomen and your back. Pain there is often caused by a problem with your kidneys. It might be a kidney infection or a kidney stone. Other causes of flank paininclude spinal arthritis, a pinched nerve from a back injury, or a back muscle strain or spasm. The cause of your flank pain is not certain. You may need other tests. Home care Follow these tips when caring for yourself at home: You may use acetaminophen or ibuprofen to control pain, unless your health care provider prescribedanother medicine. If you have chronic liver or [...] You might find that alternating ice and heatworks well. Use the method that feels the [...] worse Numbness or weakness in a leg 6280-7626 [employer]. [address] [place] [address], [place] [address]. All rights reserved. This information is not intended as a substitute for professional medical care. Always follow yourhealthcare professional's instructions. Additional Information VACCINATE! IT SAVES LIVES! Members of the community who have not yet received the COVID-19 vaccine and would like to receive it can visit one of [facility] vaccine clinics. There are many vaccine clinic locations within the [facility]. For locations and available times, please visit www.gettheshot.coronavirus.[place].gov/. It is important to note that some COVID mobile vaccine clinics are held outdoors and may be canceled in rainy or stormy conditions. To learn more about pediatric vaccinations (ages 5-11), we invite you to visit the [facility] webpage. https://www.GetAuto[employer].org/pages/6378-Zcnxu-Yhljcaxxvdz-Ybodcmdbyj-Jxklh-Ucu stions.htmlTo learn more about the COVID-19 vaccine, we invite you to visit the CDC website for a list of frequently asked questions. https://www.cdc.gov/coronavirus/2019-ncov/vaccines/faq.html [facility] Patient Portal Access Instructions: Stay connected with your healthcare team and access your personal medical information anytime with the [facility] Patient Portal. If you would like a full copy of your medical records please contact the [facility] Medical Records Department Friday through Friday between 8a.m. and 4:30p.m. Please follow the directions below to access the portal: 1.Access the email account you provided upon registration to the hospital.2.Look for an invitation email from [facility].3.Open the email and access the invitation link: Accept Invitation to [facility]4.Fill in the required last to create your account. Sign into www.[employer] with your username and password that you [...] you will allow to register on the [facility] Patient Portal for access to your information. You can also access the [facility] Patient Portal on the [employer] massimo. Simply click on Health Records under [employer] and then click on the [employer] logo. HOW TO SAFELY DISPOSE OF PRESCRIPTION MEDICATIONS Please use one of the following methods to safely dispose of your unused medications. 1.Use a drug disposal kit: the drug disposal pouch allows you to safely discard your old and unuseddrugs. Ask your nurse to give you one when you are discharged.2.Visit a local take-back location: Many local pharmacies and police departments have programs that collect old and unwanted prescriptiondrugs. Call your local pharmacy or go to http://EdPuzzle.ScramblerMail/9V5Wq8a to find one close to you.3.Make use of household items: Use cat litter or old coffee grounds to dispose medications if other options arenot available. Mix your drugs with these household products, seal them in an airtight container andthrow it into the garbage. Call [facility]: [phone] to be sure your drugs can be [...] drowsiness, such as benzodiazepines, also known as benzos,including diazepam and alprazolam, muscle relaxants or sleep aids. Never sell or share prescriptionopioids. This is illegal. Store opioids in a secure place and out of reach of others (including children, family, friends and visitors). The last page(s) of this document has been signed and retained as a CHART COPY Signatures Patient Education Materials Flank Pain, Uncertain Cause Medication Leaflets ketorolac (oral/injection) My discharge plan and instructions have been reviewed and explained to me and I,JORDANA MEDEROS understand my current condition and have read and understand these discharge instructions. I have received a written copy of the plan/instructions. If I have questions, I am aware that I should contact my doc tor. Patient/Resident Physician Signature: Date/Time: Relationship to Patient: Witness Name/Signature: Date/Time: [facility]05-07-2024 Note ORIGINAL EXAMINATION: CT OF THE ABDOMEN [...] Sign Date: 08/05/2023 5:04:02 AM Ordering Provider: [facility]03-14-2024 NoteHNO ID: [id number] Author: YUKI CASTILLO APRN.CNM Service: ? Author Type: Loan Funder Type: Progress Notes Filed: 06/12/2023 12:24 Note Text: Jordana is a 17 year old who presents [...] L0 SAB0 IAB0 Ectopic0 Multiple0 Live Births0 Credit Rating Inspector History LMP: 05/22/2023 (Exact Date), Having periods Age at Menarche: Age at First : Age at Menopause: Credit Rating Inspector History Comments: Sexual Activity: Yes; Male Contraception: [...] one year or sooner as needed. Yuki Castillo APRN.[facility]03-14-2024 History of Present illness Narrative* Yuki Castillo APRN.[facility] - 06/12/2023 9:57 AM EDT Jordana is a 17 year old who presents [...] L0 SAB0 IAB0 Ectopic0 Multiple0 Live Births0 Credit Rating Inspector History LMP: 05/22/2023 (Exact Date), Having periods Age at Menarche: Age at First : Age at Menopause: Credit Rating Inspector History Comments: Sexual Activity: Yes; Male Contraception: [...] one year or sooner as needed. Yuki Castillo APRN.CNM [facility] Author Alfredo Early [facility] Note Date/Time September 06, 2024 6:33a m [facility] Medical Records Department [address] [place] [address] Emergency Department Summary 09/06/24 MR#: [id number] Acct: [id number] Name: JORDANA MEDEROS Rep #:[id number] 6 : 2005 19 From: Alfredo Early DO PCP: AGUILAR Simons Status:REG ER Location: ED HPI History of Present Illness Chief Complaint: Abd Pain Narrative Narrative: Patient is a 19-year-old female with past medical history of recent diagnosis ofdiabetes on metformin who presents to the emergency department the chief complaint of menstrual cramps. Patient states that in the middle the night she woke up and noted that she started menstrual cycle was having significant pain she tried ibuprofen around midnight and then she tried Midol around 3 AM withoutany relief therefore she came here for further evaluation management. She states that she is unsure if this is related to her diabetes or not. [facility] Medical History Diabetes Home Medications ?Medication ?Instructions ?Recorded ?Last Taken ?Type metformin 500 mg tablet,extended 2,000 mg PO DAILY 12/23 Unknown History release 24 hr ondansetron 4 mg disintegrating 4 mg PO Q6H PRN nausea and 09/06/24 Unknown Rx tablet vomiting #20 tabs Allergy/AdvReac Type Severity Reaction Status Date / Time No Known Allergies Allergy Verified 09/06/24 05:25 Social History Smoking Status: Never smoker ROS ROS ED ROS Narrative Constitutional: Denies fevers, chills, headaches Abdomen: Complains of abdominal pain as noted above denies nausea vomit diarrhea : Denies any painful urination, hematuria, polyuria Neurological: Denies any numbness, wheeze, tingling Musculoskeletal: Denies back pain Skin: Denies rashes or lesions EXAM Physical Exam Narrative Exam Narrative: General: Patient lying in bed rest comfortably did not appear to be acute distress Head: Atraumatic, normocephalic Eyes: PERRL bilaterally, EOMI bilaterally, no conjunctival injection noted Neck: Soft, supple, trachea midline Cardiovascular: Regular rate and rhythm Abdomen: Soft, nondistended, mild tenderness to palpation over the suprapubic region in the right lower and left lower quadrants no rebound or guarding on exam Extremities: +5/5 strength noted in the bilateral upper and lower extremities Neurological: Patient follow commands that she was at [facility] the year is 2024 Skin: Warm, dry, intact no rashes or lesions noted Const Vital Signs: 09/06/24 05:24 Temperature 98.4 F Temperature Source Oral Pulse Rate 98 Respiratory Rate 16 Blood Pressure 153/93 H Blood Pressure Mean 113 Pulse Ox 100 Oxygen Delivery Method Room Air MDM MDM MDM Narrative Medical decision making narrative: Patient is a 19-year-old female who presents to the emergency department with a chief complaint of period cramps. On the differential diagnose includes but notlimited to menstrual cycle, ruptured cyst, UTI, , ectopic . Once workup is obtained reviewed she will be reevaluated. Patient be given IV fluids and Toradol. On reevaluation the patient she is feeling much improved she would like to go home at this point time. Patient was advised to rotate Tylenol and ibuprofen [id number] for pain control. She was [facility]. She was encouraged to follow-up with her doctor and return with any other concerns. She is agreeable this plan as well as significant other bedside all question concerns answered she was discharged homein stable condition Lab Data Labs: Laboratory Results - last 24 hr 09/06/24 09/06/24 05:50 05:57 Urine Color Yellow Urine Clarity Clear Urine pH 6.5 Ur Specific [place] 1.010 Urine Protein 15 H Urine Glucose (UA) Normal Urine Ketones Negative Urine Occult Blood 250 H Urine Nitrite Negative Urine Bilirubin Negative Urine Urobilinogen Normal Ur Leukocyte Esterase Negative Urine RBC 0 SEEN Urine WBC 0 SEEN Ur Squamous Epith Cells 0-5 SEEN Urine Bacteria 0 SEEN Urine Mucus 0 SEEN Urine Test Negative POC Glucose 127 H Discharge Plan Triage Chief Complaint: Abd Pain ED Provider: Alfredo Early Dx/Rx/DC Orders Clinical Impression: Menstrual cramp Prescriptions: New ondansetron 4 mg tablet,disintegrating 4 mg PO Q6H PRN (Reason: nausea and vomiting) Qty: 20 0RF No Action metformin 500 mg tablet extended release 24 hr 2,000 mg PO DAILY Primary Care Provider: Jessy Logan NP Referrals: Jessy Logan MELT DOWN FURNACE OPERATOR, MELT DOWN FURNACE OPERATOR-C [Primary Care Provider] - Activity Restrictions/Additional Instructions: Follow-up with your doctor in the outpatient setting. Return with worsening symptoms or any concerns. Your urine did not show evidence of infection your glucose was normal and your test was negative. Rotate Tylenol and ibuprofen [id number] when you do this you can take something every 3 hours. Max dose Tylenol is 4000 mg in 24 hours max dose of ibuprofen 3200 mg in24 hours. Print Language: [place] Disposition Disposition: Home, Self Care What to do if you have Problems For any increased pain, shortness of breath, bleeding, nausea or vomiting, chestpain, or any unexpected problems, contact your Primary Care Provider. Call [facility] ([phone]) or report to the closest Emergency Room. Call 911 if necessary. 09/06/24 0633 <Electronically signed by Alfredo Early DO> Cosigner Signature (if applicable): CC: MELT DOWN FURNACE OPERATOR-C Jessy Logan ~ Signed [facility] Work Phone: Evaluation + Plan note No data available for this section [facility] Evaluation + Plan note Future Appointments Appointment Date:12/16/2024 09:00:00 AM Scheduled Provider:DOMO GOMEZ MD Location[facility] Appointment Type:ENDO OV Diagnostic Tests Pending * ACTH, Plasma 12/07/24 * Renin Activity, Plasma 12/07/24 * Aldosterone LCMS, Serum 12/07/24 * NMR LipoProfile+Lipids 12/07/24 * 17-OH Progesterone LCMS 12/07/24 * Testosterone,Free and Total (Ref,$,5d) 12/07/24 * LILIAN by IFA Screen 12/07/24 * Rheumatoid Factor (RF) 12/07/24 Future Scheduled Tests Laboratory* Cortisol Level 12/09/24 * [facility] Lab Send out (Blood Specimens) 12/09/24 [facility] Evaluation + Plan note Future Appointments Appointment Date:12/16/2024 09:00:00 AM Scheduled Provider:DOMO GOMEZ MD Location:[facility] Appointment Type:ENDO OV Diagnostic Tests Pending * Dexamethasone Serum 12/09/24 [facility] Evaluation + Plan note Future Appointments Appointment Date:12/16/2024 09:00:00 AM Scheduled Provider:DOMO GOMEZ MD Location:[facility] Appointment Type:ENDO OV Diagnostic Tests Pending * Salivary Cortisol,MS 12/06/24 [facility] Evaluation noteNo assessment information available [facility] Work Phone: Evaluation note* Diagnosis Encounter for gynecological examination (general) (routine) without abnormal findings- Primary Patient desires Unspecified procreative management [facility] Diagnosis Dysuria- Primary Pelvic pain [facility]* Diagnosis Onset Date Resolution Status Admit Date Infertility management acute Ju ne 2024 7:58am Encounter for routine gynecological examination noneactive August 302024 7:58am [facility] Work Phone: Hospital Discharge instructions Additional Instructions Follow-up with your doctor in the outpatient setting. Return with worsening symptoms or any concerns. Your urine did not show evidence of infection your glucose was normal and your test was negative. Rotate Tylenol and ibuprofen [id number] when you do this you can take something every 3 hours. Max dose Tylenol is 4000 mg in 24 hours max dose of ibuprofen 3200 mg in 24 hours.[facility] Work Phone: Hospital Discharge instructions No data available for this section [facility] Progress note No data available for this section [facility] Reason for referral (narrative)No reason for referral information [facility] Work Phone: Summary Purpose Family History No Family History Records Found Relationship Condition Age at Onset Recorded Date/T chris mother Diabetes mellitus Unknown grandmother Myocardial infarction Unknown Advance Directives No Advanced Directives Records Found Advance Directive Response Recorded Date/ Time Do you have a Healthcare Power of [employer] Brusher? No September 06, 2024 5:24am Chief Complaint and Reason for Visit Chief Complaint Urinary tract infect ion Chief Complaint Admit Date period cramps September 06, 2024 5:24a m Chief Complaint Admit Date period cramps September 06, 2024 5:24a m Annual (MEDICAL SCHEDULER) September 20, 2024 7:58 am Reason for Visit Admit Date Infertility management September 20, 2024 7 :58am Encounter for routine gynecological exam ination September 20, 2024 7:58am Chief Complaint Admit Date period cramps September 06, 2024 5:24a m Annual (MEDICAL SCHEDULER) September 20, 2024 7:58 am INFERTILITY FOR 1 YEAR September 23, 2024 4 :27pm Additional Source Comments INFORMATION SOURCE (unrecogn ized section and content) DATE CREATED AUTHOR 07/18/2018 [facility] DATE CREATED AUTHOR AUTHOR'S ORGANIZ ATION 03/10/2022 [facility] DATE CREATED AUTHOR AUTHOR'S ORGANIZ ATION 03/28/2022 [facility] DATE CREATED AUTHOR AUTHOR'S ORGANIZ ATION 04/30/2022 [facility] DATE CREATED AUTHOR AUTHOR'S ORGANIZ ATION 09/21/2023 [facility] ([place]) DATE CREATED AUTHOR AUTHOR'S ORGANIZ ATION 06/03/2024 [facility] DATE CREATED AUTHOR AUTHOR'S ORGANIZ ATION 12/18/2024 [facility] DATE CREATED AUTHOR AUTHOR'S ORGANIZ ATION 01/19/2025 [facility] <item> Privacy Markings (unrecogniz ed section and content) Section Author: Ashlee Cortés PROHIBITION ON REDISCLOSURE OF CONFIDENTIAL INFORMATION This notice accompanies a disclosure of information concerning a client made to you with the consent of such client. Goals (unrecognized section and content) Goals may be documented in a n alternate section No data available for this sectionGoals may be documented in an alternate sectionGoals may be documented in an alternate sectionGoals may be documented in an alternate sectionGoals may be documented in an alternate section No data available for this section No data available for this section No data available for this section Source Comments (unrecognize d section and content) In the event this informatio n is protected by the Federal Confidentiality of Alcohol and Drug Abuse Patient Records regulations: The Federal rules restrict any use of the information to criminally investigate or prosecute any alcohol or drug abuse patient.[facility] the event this information is protected by the Federal Confidentiality of Alcohol and Drug Abuse Patient Records regulations: The Federal rules restrict any use of the information to criminally investigate or prosecute any alcohol or drug abuse patient.[facility] Center[facility] the event this information is protected by the Federal Confidentiality of Alcohol and Drug Abuse Patient Records regulations: The Federal rules restrict any use of the information to criminally investigate or prosecute any alcohol or drug abuse patient.[facility] Reason for Visit (unrecogniz ed section and content) Reason Comments Yearly Exam Reason Comments Pelvic Pain low back pain x 5 da ys Patient Care team informatio n (unrecognized section and content) Sales Representative [employer] Relationship Specialty Start Date End Date Jessy Logan NP [address] [place] [id number] PCP - General Internal Medicine 06/01/24 Sales Representative [employer] Relationship Specialty Start Date End Date Jessy Logan NP [address] [place] [id number] PCP - General Internal Medicine 06/01/24 Team Status: Active Member Role Status Dates Jessy Logan NP MELT DOWN FURNACE OPERATOR-C Primary Care Provider Active Team Status: Inactive Member Role Status Dates Jessy Logan NP, MELT DOWN FURNACE OPERATOR-C Primary Care Provider Active Start: September 06, 2024 End: September 06, 2024 Dr. Alfredo Early DO Emergency Provider Active Start: September 06, 2024 End: September 06, 2024 Team Status: Inactive Member Role Status Dates Jessy Logan NP, NP-C Primary Care Provider Active Start: September 06, 2024 End: September 06, 2024 Dr. Alfredo Early DO Attending Provider Active Start: September 06, 2024 End: September 06, 2024 Dr. Alfredo Early DO Emergency Provider Active Start: September 06, 2024 End: September 06, 2024 Team Status: Inactive Member Role Status Dates AGUILAR Calderon Attending Provider Active Start: September 20, 2024 End: September 20, 2024 Jessy Logan NP, MELT DOWN FURNACE OPERATOR-C Primary Care Provider Active Start: September 20, 2024 End: September 20, 2024 Jessy Logan NP, MELT DOWN FURNACE OPERATOR-C Referring Provider Active Start: September 20, 2024 End: September 20, 2024 Team Status: Active Member Role/Relationship Status Dates Jessy Logan NP, MELT DOWN FURNACE OPERATOR-C Primary Care Provider Active Team Status: Inactive Member Role/Relationship Status Dates Jessy Logan MELT DOWN FURNACE OPERATOR, MELT DOWN FURNACE OPERATOR-C Primary Care Provider Active Start: September 06, 2024 End: September 06, 2024 Dr. Alfredo Early DO Attending Provider Active Start: September 06, 2024 End: September 06, 2024 Dr. Alfredo Early , Emergency Provider Active Start: September 06, 2024 End: September 06, 2024 Team Status: Inactive Member Role/Relationship Status Dates Griselda Lora NP-C Attending Provider Active Start: September 20, 2024 End: September 20, 2024 Jessy Logan MELT DOWN FURNACE OPERATOR, MELT DOWN FURNACE OPERATOR-C Primary Care Provider Active Start: September 20, 2024 End: September 20, 2024 Jessy Logan NP, MELT DOWN FURNACE OPERATOR-C Referring Provider Active Start: September 20, 2024 End: September 20, 2024 Team Status: Inactive Member Role/Relationship Status Dates Jessy Logan NP, MELT DOWN FURNACE OPERATOR-C Primary Care Provider Active Start: September 20, 2024 End: September 20, 2024 Griselda Lora NP-C Attending Provider Active Start: September 20, 2024 End: September 20, 2024 Team Status: Active Member Role/Relationship Status Dates Jessy Logan NP, MELT DOWN FURNACE OPERATOR-C Primary Care Provider Active Start: September 23, 2024 Griselda Lora NP-C Attending Provider Active Start: September 23, 2024 Griselda Lora NP-C Referring Provider Active Start: September 23, 2024 Team Status: Inactive Member Role/Relationship Status Dates Jessy Logan NP, MELT DOWN FURNACE OPERATOR-C Primary Care Provider Active Start: September 23, 2024 End: September 23, 2024 Griselda Lora NP-C Attending Provider Active Start: September 23, 2024 End: September 23, 2024 Griselda Lora NP-C Referring Provider Active Start: September 23, 2024 End: September 23, 2024 FOR RECORDS PERTAINING TO PATIENTS WHO ARE [...] BE BASED ON THE PRIMARY CLINICAL RECORDS. [facility] [facility]. provides no warranty or guarantee of the accuracy or completeness of information in this document.
[2025-01-21 19:58] LABS: Color, Urine Amber (Yellow); Glucose, Dipstick Normal (Normal); Ketone-Dipstick Negative (Negative); Leukocyte Esterase-Dipstick Negative /ul (Negative); Nitrite-Dipstick Negative (Negative); Occult Blood-Urine 250 /ul (Negative); Protein-Dipstick 30 mg/dl (Negative); Specific Gravity, Urine 1.010 (1.002-1.030); Urine Bilirubin Dipstick Negative (Negative)
[2025-01-21 20:00] VITALS: BP 116/80; PULSE 70; RESP 16; O2SAT 99
[2025-01-21 20:16] LABS: Red Blood Cells-Urine 25-50 SEEN /hpf (0-5)
[2025-01-21 20:18] LABS: Squamous Epithelial Cells - UA 5-10 SEEN /hpf (5-10)
[2025-01-21 20:29] LABS: hCG Titer Quant., Serum 4895 mIU/mL (<9 non-preg)
[2025-01-21 22:00] VITALS: BP 117/58; PULSE 89; RESP 18; O2SAT 99
[2025-01-22 00:24] VITALS: BP 122/74; PULSE 56; RESP 16; TEMP 37.1; O2SAT 98
== END 2025-01-22 00:25 | disposition home or self-care (01) ==
PROVIDERS: Emergency Provider Emergency Medicine; PCP Nurse Practitioner Family; Visit Provider Emergency Medicine
DX: O20.9 Hemorrhage in early pregnancy, unspecified (principal); Z79.4 Long term (current) use of insulin; O24.011 Pre-existing type 1 diabetes mellitus, in pregnancy, first trimester; Z3A.01 Less than 8 weeks gestation of pregnancy; Z79.899 Other long term (current) drug therapy
CPT/HCPCS: 76817; 80053; 81001; 84702; 84703; 85025; 86900; 86901; 87086; 87088; 96365; 99282; A4216

== ENCOUNTER → 2025-01-24 | Outpatient (CLI) | payer OTHER, SELFPAY ==
[2025-01-24 11:32] LABS: hCG Titer Quant., Serum 4232 mIU/mL (<9 non-preg)
== END | disposition home or self-care (01) ==
LOC: LAB 09:43
PROVIDERS: PCP Nurse Practitioner Family; Referring Provider Obstetrics & Gynecology; Visit Provider Obstetrics & Gynecology
DX: O46.90 Antepartum hemorrhage, unspecified, unspecified trimester (principal); O09.90 Supervision of high risk pregnancy, unspecified, unspecified trimester; Z3A.00 Weeks of gestation of pregnancy not specified
CPT/HCPCS: 36415; 84702